=== PATIENT | female | born 1995 | race Caucasian/White ===

== ENCOUNTER → 2025-02-11 | Outpatient (CLI) | payer OTHER, SELFPAY ==
[2025-02-11 14:19] LABS: Hematocrit 37.1 % (37-47); Hemoglobin 12.7 g/dL (12.0-15.0); Immature Granulocytes Count 0.170 X10^3/uL (0.0-0.0); Mean Corp Hgb Conc 34.2 g/dL (32-36); Mean Corpuscular Volume 88.8 fL (81-99); Mean Platelet Vol. 9.4 fl (6.2-12.0); NRBC Flagged by Analyzer 0 % (0-5); Platelet Count 230 K/mm3 (150-450); RBC Distribution Width CV 12.8 % (11.6-14.6); RBC Distribution Width SD 41.9 fl (35.1-43.9); Red Blood Count 4.18 M/mm3 (4.2-5.4); White Blood Count 16.1 K/mm3 (4.4-11.0)
[2025-02-11 15:27] LABS: Prothrombin Time (Protime)PT. 12.4 SECONDS (11.7-14.9)
[2025-02-11 15:29] LABS: Fibrinogen 517 mg/dl (203-444); Partial Thromboplast Time 29.5 Seconds (24.1-36.2)
[2025-02-11 17:18] LABS: HIV Nonreactive (Nonreactive); Hepatitis B Surface Antigen Nonreactive (Nonreactive); Hepatitis C Antibody Nonreactive (Nonreactive); Syphilis Antibodies Nonreactive (Nonreactive)
== END | disposition home or self-care (01) ==
PROVIDERS: Referring Provider Obstetrics & Gynecology; Visit Provider Obstetrics & Gynecology
DX: O09.90 Supervision of high risk pregnancy, unspecified, unspecified trimester (principal); Z3A.00 Weeks of gestation of pregnancy not specified
CPT/HCPCS: 36415; 85025; 85384; 85610; 85730; 86703; 86762; 86780; 86803; 86850; 86900; 86901; 87086; 87088; 87340

== ENCOUNTER 2025-02-12 10:20 | Outpatient (CLI) | payer OTHER, SELFPAY ==
[2025-02-12] MEDS: Lactated Ringers 1,000 ML 999 ML IV (11:15)
[2025-02-12 11:23] VITALS: BP 114/66; PULSE 100
[2025-02-12 11:30] LABS: Hematocrit 34.2 % (37-47); Hemoglobin 11.8 g/dL (12.0-15.0); Immature Granulocytes Count 0.170 X10^3/uL (0.0-0.0); Mean Corp Hgb Conc 34.5 g/dL (32-36); Mean Corpuscular Volume 88.6 fL (81-99); Mean Platelet Vol. 9.5 fl (6.2-12.0); NRBC Flagged by Analyzer 0 % (0-5); Platelet Count 222 K/mm3 (150-450); RBC Distribution Width CV 12.8 % (11.6-14.6); RBC Distribution Width SD 41.5 fl (35.1-43.9); Red Blood Count 3.86 M/mm3 (4.2-5.4); White Blood Count 15.6 K/mm3 (4.4-11.0)
[2025-02-12 11:34] VITALS: BMI 22.7
[2025-02-12 11:59] LABS: Prothrombin Time (Protime)PT. 12.6 SECONDS (11.7-14.9)
[2025-02-12 12:00] LABS: Fibrinogen 460 mg/dl (203-444); Partial Thromboplast Time 30.3 Seconds (24.1-36.2)
--- NOTE | 2025-02-12 13:44 | OB.TRI.PN ---
Progress Notes Date of Service: 02/12/25 Progress Note: Patient seen for heavy vaginal bleeding. Placental abruption diagnosed at office yesterday. Patient has had bleeding throughout the beginning of the . Today had increased bleeding since 3 AM and cramping cannot sit up without having heavier bleeding so she has been staying laying down. Presented to the hospital today for evaluation. Upon evaluation heart tones present and 150s upon brief bedside ultrasound placenta seen to be more than was yesterday across the back wall and 1 cm clot seen at the top of the cervix. Cervix closed thick high with dark old blood present in the vaginal vault. Labs drawn and sent, hemoglobin dropped 1 g the rest of the labs are stable. Maternal- medicine evaluation recommended, they recommended ER evaluation as they will not see an abruption in the office. Discussed with patient transport via squad or personal car. At this time patient is stable enough for transport via personal car due to Pree viability and bleeding is decreased significantly. Recommend transfer up to [facility] for evaluation in the emergency room. Laboratory Studies: Laboratory Tests 02/12/25 Range/Units 11:15 WBC 15.6 H (4.4-11.0) K/mm3 RBC 3.86 L (4.2-5.4) M/mm3 Hgb 11.8 L (12.0-15.0) g/dL Hct 34.2 L (37-47) % MCV 88.6 (81-99) fL MCH 30.6 (27.0-32.0) pg MCHC 34.5 (32-36) g/dL RDW Std Deviation 41.5 (35.1-43.9) fl RDW Coeff of Nathaly 12.8 (11.6-14.6) % Plt Count 222 (150-450) K/mm3 MPV 9.5 (6.2-12.0) fl Immature Gran % (Auto) 1.100 H (0.0-0.9) % Neut % (Auto) 78.1 H (47-70) % Lymph % (Auto) 12.4 L (19-41) % [place] % (Auto) 5.9 (0-10) % Eos % (Auto) 2.1 (0-5) % Baso % (Auto) 0.4 (0-1) % Absolute Neuts (auto) 12.2 H (2.0-7.7) X10^3/uL Absolute Lymphs (auto) 1.94 (0.83-4.51) X10^3/uL Nucleated RBC % 0 (0-5) % PT 12.6 (11.7-14.9) SECONDS INR 0.9 APTT 30.3 (24.1-36.2) Seconds Fibrinogen 460 H (203-444) mg/dl Charges/Coding Multi Select Codes Urinary/Genital Urinary/Genital CPT Codes: No Charge
== END 2025-02-12 13:20 | disposition home or self-care (01) ==
LOC: WP 10:26 → WPOUT 10:39 → WP 10:40
PROVIDERS: Referring Provider Obstetrics & Gynecology; Visit Provider Obstetrics & Gynecology
DX: O46.90 Antepartum hemorrhage, unspecified, unspecified trimester (principal); Z3A.00 Weeks of gestation of pregnancy not specified
CPT/HCPCS: 96365; 59050; 76815; 85025; 85384; 85610; 85730; 99221; G0378

== ENCOUNTER 2025-02-25 08:49 | Inpatient (IN) | payer OTHER, SELFPAY ==
[2025-02-25] VITALS (137 sets, daily range): BP systolic 88–116; BP diastolic 45–73; PULSE 83–123; RESP 14–17; TEMP 36.4–37.5; O2SAT 96–100; BMI 23.5
--- OUTSIDE RECORDS SUMMARY | 2025-02-25 01:48 | XMS RPT_ITS | CCD ---
Author Organization [facility] Care Team Providers Care Glass Production Machine Operator Name Role Phone CARLA BARRIOS Unavailable Unavailable Cynthia GRISSOM, Dr. Singh Attending Provider Cynthia GRISSOM, Dr. Singh Referring Provider Cynthia GRISSOM, Dr. Singh Other Provider [phone] Unavailable Primary Care Provider UnavailTUNDE Ramirez Admitting Unavailable ROULETTE, TUNDE Attending Unavailable Marcanthony, Samantha Attending Unavailable Marcanthony, Samantha Referring Unavailable Marcanthony, Samantha Attending Unavailable Marcanthony, Samantha Referring Unavailable Marcanthony, Samantha Attending Unavailable Marcanthony, Samantha Attending Unavailable Marcanthony, Samantha Attending Unavailable Marcanthony, Samantha Consulting Unavailable Marcronaldoony, Samantha Referring Unavailable Allergies Allergy Classification Reported Allergen(s) Allergy Type Date of Onset Reaction(s) Facility (3 sources) Wheat gluten extract Drug Allergy 02-11-2025 Other [facility] (1 source) Gluten Drug allergy (disorder) 02-17-2025 [facility] Repository Medications Current Medications Medication Drug Class(es) Dates Sig (Normalized) Sig (Original) acetaminophen 325 mg oral tablet (4 sources) Start: 02-13-2025 End: 02-23-2025 take 2 tablets by mouth every four hours as needed for pain acetaminophen (Tylenol) 325 MG tablet Take 2 tablets (650 mg) by mouth every 4 hours as needed for mild pain (1-3) (Fever GREATER than 100.5 F (38 C)) for up to 10 days. 30 tablet 02/13/2025 02/23/2025 Active Start: 02-12-2025 End: 02-13-2025 take 1 tablet by mouth every four hours as needed for pain B Complex (3 sources) Start: 02-11-2025 B Complex Active PO February 11, 2025 12:00am Cod Liver Oil oil (2 sources) Start: 02-12-2025 take 1 mL by mouth once daily Cod Liver Oil oil Active 10 mL PO DAILY February 12, 2025 12:00am lactobacillus acidophilus 1.5 mg oral capsule (2 sources) Start: 02-12-2025 Lactobacillus Acidophilus (Probiotic Acidophilus) 250 million cell capsule Active 500 NMA PO DAILY February 12, 2025 12:00am Magnesium (2 sources) Start: 02-12-2025 take 1 tablet by mouth once daily Magnesium 200 mg tablet Active 200 mg PO DAILY February 12, 2025 12:00am ondansetron 4 mg disintegrating oral tablet (2 sources) Serotonin-3 Receptor Antagonist Start: 02-13-2025 End: 02-20-2025 take 1 tablet by mouth every eight hours as needed for nausea and vomiting ondansetron ODT (Zofran-ODT) 4 MG disintegrating tablet Take 1 tablet (4 mg) by mouth every 8 hours as needed for nausea or vomiting for up to 7 days. 20 tablet 02/13/2025 02/20/2025 Active 27-1 MG tablet (2 sources) Start: 02-14-2025 take 1 tablet by mouth once daily 27-1 MG tablet Take 1 tablet by mouth daily. 30 tablet 02/14/2025 Active Completed/Discontinued Medications Medication Drug Class(es) Dates Sig (Normalized) Sig (Original) calcium chloride 0.0014 meq/ml / potassium chloride 0.004 meq/ml / sodium chloride 0.103 meq/ml / sodium lactate 0.028 meq/ml injectable solution (2 sources) Start: 02-12-2025 End: 02-13-2025 1,000 mL, IntraVENous, at 500 mL/hr, Administer over 2 Hours, Once, On Mon02/12/25 at 2145, For 1 dose ondansetron ODT (Zofran-ODT) disintegrating tablet 4 mg (2 sources) Start: 02-12-2025 End: 02-13-2025 take 1 tablet by mouth every eight hours as needed for nausea and vomiting ondansetron ODT (Zofran-ODT) disintegrating tablet 4 mg vitamin tablet (2 sources) Start: 02-12-2025 End: 02-13-2025 5 ml sodium chloride 9 mg/ml injection (6 sources) Start: 02-12-2025 End: 02-13-2025 10 mL, IntraVENous, Every 12 hours scheduled (2 times per day), First dose on Mon02/12/25 at 2100 Start: 02-12-2025 End: 02-13-2025 Start: 02-12-2025 End: 02-13-2025 Problems Problem Classification Problem Date Documented Da te Episodic/Chronic Hemorrhage during ; abruptio placenta; placenta previa (11 sources) Placental abruption; Translations: [Premature separation of placenta, unspecified, second trimester] Onset: 02-12-2025 02-11-2025 Episodic Comment on above: mfm consult and brittnee douglas scan Other complications of ; puerperium affecting management of mother (6 sources) Delivery finding; Translations: [Complication of labor and delivery, unspecified] Onset: 02-12-2025 02-13-2025 Episodic Other complications of ; puerperium affecting management of mother (2 sources) Complication of labor and delivery, unspecified; Translations: [Complication of labor and delivery, unspecified] Onset: 02-12-2025 Episodic Other complications of (7 sources) High risk ; Translations: [Supervision of high risk , unspecified, unspecified trimester] 02-11-2025 Episodic Comment on above: RAD[facility] [place] RAD[facility] 07/22/25 PC [place], zofia, ej, jaida [place] Other complications of (2 sources) Supervision of high risk , unspecified, unspecified trimester; Translations: [Supervision of high risk , unspecified, unspecified trimester] Onset: 02-11-2025 Episodic Other and delivery including normal (7 sources) ; Translations: [Encounter for supervision of normal , unspecified, unspecified trimester] 02-11-2025 Episodic Comment on above: ZE fam montilla. ZE fam montilla due to persistent vb. genetic, carrier, afp declined. Results Test Name Value Interpretation Reference Range Facility Stock Associate Office Visit Reporton 02-17-2025 Stock Associate Office Visit Report [facility] [address], [address] [place] [address] OFFICE VISIT Date of Service: 02/17/25 MR#: [id number] Acct: [id number] Name: LINA GLIBERT Rep #: [id number] : 1995 Provider: Dr. Samantha lenz MD Age/Sex: 29/F Location: [facility] Status: Signed Intake Vital Signs 02/12/25 11:34 02/17/25 11:48 02/17/25 11:54 Height 5 ft 6 in 5 ft 6 in 5 ft 6 in Weight: 145 lb BMI 23.3 BP 114/70 Intake Visit Reasons: 17wk6d ob *per SM Batch Still Operator Required: No Is patient in pain?: Yes (some pain with cramping) Allergies gluten Allergy (Unknown, Verified 02/17/25 11:47) Other Medications ???Medication ???Instructions ???Recorded ???Confirmed ???Type B Complex PO 02/11/25 02/17/25 History Lactobacillus acidophilus 250 500 mmu cells PO DAILY 02/12/25 History million cell capsule (Probiotic Acidophilus) cod liver oil 10 ml PO DAILY 02/12/25 02/17/25 H istory magnesium 200 mg tablet 200 mg PO DAILY 02/12/25 02/17/25 History Last Menstrual Period: 10/15/24 Zika: Zika virus screening: Negative : No PFSH PFSH Surgical History History of dental surgery Social History household members: spouse and children number of children: 4 current occupation: [employer] Smoking Status: Never smoker alcohol intake: never substance use type: does not use do you feel safe at home: Yes additional social history: Jesus Alberto Escobar) History 5 Elective abortions Hx Para 4 Spontaneous abortions Hx # Term Pregnancies Ectopic pregnancies Hx # Pregnancies Multiple births # of living children 4 Past Pregnancies Del. Date Name GA/Weeks Outcome Route Bth Weight Infant Gen Labor Lgth Anesthesia Del Locatn Provider FOB Unknown 2017 [place] live - full term Unknown 2018 Zofia live - full term Unknown 2020 Ej live - full term Unknown 2022 Jaida live - full term HPI 17wk6d ob *per SM Details: LINA GILBERT is a 29 year old who presents for routine OB visit. OB Visit RADHA Calculator Estimated Delivery Date Method Current WG Current Estimate 07/22/25 LMP (Certain) 17w 6d Expected Delivery Route/Plan Labor Preferences- CB/BF classes: [] labor support person: [] labor intervention preferences: [] pain management options preferred: [] cut cord/dad catch: [] : [] PP control planned: [] discussed possible routes of delivery and associated risks: [] special requests: [] Specific Issue/Plans Covid status: [] Flu vaccine: [] Tdap vaccine: [] Rhogam: [] LARC form signed: [] Problem list reviewed and updated with the most current plan of care details and appropriate orders placed. Relevant counseling for the gestational age provided. Continue routine care and follow up unless otherwise noted in visit notes/problem list details Initial Weight: Not Recorded Date -???-???-???-???-? ??-???-???-???-??? -???-???-???- EGA Weight BP Urine Prot -???-???-???-???-? ??-???-???-???-??? -???-???-???- Glucose FHR FuHt Pres Dilation -???-???-???-???-? ??-???-???-???-??? -???-???-???- Effaced St Visit Note 02/11/25 -???-???-???-???-? ??-???-???-???-??? -???-???-???- 17w 0d 141 lb 1 oz 102/66 -???-???-???-???-? ??-???-???-???-??? -???-???-???- 150 -???-???-???-???-? ??-???-???-???-??? -???-???-???- SM- ZE from Fam [place] SM- ZE from Fam [place]. SM- ZE from Fam [place] due to va ginla bleeding throughout the beginning of the . 1x3 cm marginal placental abruption seen on ultrasound no previa amniotic fluid growwly normal amount but granular appearance. 02/17/25 -???-???-???-???-? ??-???-???-???-??? -???-???-???- 17w 6d 145 lb 114/70 Negative -???-???-???-???-? ??-???-???-???-??? -???-???-???- Negative 150 -???-???-???-???-? ??-???-???-???-??? -???-???-???- SM- continue d bleeding, following with MFM closely, ocntinue reduced activity. 2 areas of abruption, stable at this time clinically ACOG First Trimester First Trimester: Discussed ROS Const Denies fever(s) GI Reports as per HPI and Denies abdominal pain Reports as per HPI, Denies abnormal vaginal bleeding, Denies dysuria and Denies vaginal discharge Exam Const General: healthy appearing, comfortable and no acute distress GI Inspection: normal to inspection Palpation: soft and nontender Results POC Urinalysis 2 Dip (Clinic) Office Urine Glucose Negative Last Edit by Keisha Muñoz on 02/17/25 12:00 Office Urine Protein Negative Last Edit by Keisha Muñoz on (more content not included)... Normal [facility] Urine Cultureon 02-14-2025 URC Mixed Gram Positive Organisms Coy Count 25,000-50,000 MIXC Mixed contaminants. Submit a new specimen if indicated. Normal [facility] Comment on above: Performed By: #### M 100.2200 #### [facility] [address] [place], [address] [id number] 02-13-2025 [id number] Date: 02/13/2025 Name: Lina Gilbert : 1995 [facility] Information [place] Patient Information Primary Caregiver: Self Accompanied by/Relationship: S/O;Family Marital Status: Support System: SO/Family Shinto/Cultural Factors: Activities of Daily Living Communication: See demographics Living Arrangements Current Residence: Private residence Lives With: S/O; Family Support System: S/O; Family Income Information Income Source: Not Employed Financial Resource Strain How hard is it for you to pay for the very basics like food, housing, medical care and heating? N/A Housing Stability In the last 12 months, was there a time when you did not have a steady place to sleep or slept in a longterm (including now)? No Transportation Needs Has the lack of Transportation kept you from medical appointments? No In the past 12 months, has the lack of transportation kept you from meetings, work, or from getting things needed for daily living? No Food Insecurity Within the past 12 months, have you worried that your food would run out before you got the money to buy more? No Stress Do you feel stress - tense, restless, nervous, or anxious, or unable to sleep at night because you mind is troubled all the time? Mood stable Referral To Financial Resources: N/A Community Resources: PNU folder given upon admission to PNU Unit Social Work: N/A CLP: N/A Medical Information 29 year old admitted for vaginal bleeding at 17/1 weeks. 5 Para 4. Consults MFM. Concern for abruption Discharge Plan Home or Community Resources: PNU Admission folder given upon admission to unit Equipment: N/A Education Given: PNU admit folder and see Education Tab Additional Information: N/A Mental Health Services: N/A Developmental Delay: N/A Children's Services: N/A Normal [facility] Laboratory - Microbiology an d Antimicrobial susceptibilityOrdered By: Ally Medina on 02-13-2025 Reagin Ab RPR Ql (S) Non-Reactive Nonreactive S [facility] Panel Informationon 02-13 OBSTETRICS REPORT (Signed Final 02/13/2025 02:00 pm) PATIENT INFO: ID #: [id number] : [birth year] (29 yrs)(F) Name: LINA GILBERT Visit Date: 02/13/2025 11:33 am PERFORMED BY: Attending: Beverly Dominguez MD, ARPITA, FACOG Performed By: Rachel Gorman RDMS Referred By: TALI CLINE [facility] Phy.: SAMANTHA SANDERS Address: [address] [address] Location: [facility] IP Visit Type: Inpatient - Hospital SERVICE(S) PROVIDED: US >= 14 weeks [address] US Transvaginal 60056 INDICATIONS: Complication of labor and delivery, O75.9 unspecified Antepartum hemorrhage, unspecified, O46.92 second trimester EVALUATION: Num Of Fetuses: 1 Heart Rate(bpm): 149 Cardiac Activity: Regular rhythm Lie: Longitudinal Presentation: Breech Placenta: Posterior P. Cord Insertion: Normal Amniotic Fluid ROSALINE FV: Within normal limits Largest Pocket(cm) 3.62 Comment: 2 areas of Abruption 1) Extends from Inferior Placental edge, covering Internal os 5.1 x 2.1 x .8cm. 2) At Superior Placental edge 3.9 x 3.5 x 1.1cm BIOMETRY: BPD: 37.4 mm G.Age: 17w 3d 56 % OFD: 51 mm HC: 142.9 mm G.Age: 17w 4d 55 % AC: 127.9 mm G.Age: 18w 3d 82 % FL: 24.9 mm G.Age: 17w 4d 55 % CER: 16.9 mm G.Age: 17w 1d 37 % NFT: 2.84 mm LV: 5.71 mm CM: 5 mm CI: 73.3 % 70 - 86 FL/HC: 17.4 % 14.6 - 17.6 HC/AC: 1.12 1.07 - 1.29 FL/BPD: 66.6 % FL/AC: 19.5 % 20 - 24 Est. FW: 215 gm 0 lb 8 oz GESTATIONAL AGE: Clinical RADHA: 17w 2d RADHA: 07/22/25 U/S Today: 17w 5d RADHA: 07/19/25 Best: 17w 2d Det. By: Clinical RADHA RADHA: 07/22/25 TARGETED ANATOMY: Central Nervous System Calvarium/Cranial V.: Normal appearance Intracranial Brittnee: Normal appearance Cavum: Normal appearance Lateral Ventricles: Normal appearance Choroid Plexus: Normal appearance Cereb./Vermis: Normal appearance Cisterna Magna: Normal appearance Corpus Callosum: Normal appearance Midline Falx: Normal appearance Spine Cervical: Normal appearance Thoracic: Normal appearance Lumbar: Normal appearance Sacral: Suboptimal views Head/Neck Face: Normal appearance Lips: Normal appearance Neck: Normal appearance Nuchal Fold: Normal appearance Nasal Bone: Present Palate: Normal appearance Profile: Normal appearance Orbits/Eyes: Normal appearance Mandible: Normal appearance Maxilla: Normal appearance Thorax Thoracic Contour: Normal appearance Lungs: Normal appearance 4 Chamber View: Normal appearance Cardiac Activity: Observed Cardiac Rhythm: Normal Cardiac Situs: Normal appearance Rt Outflow Tract: Normal appearance Lt Outflow Tract: Normal appearance Aortic Arch: Normal appearance Ductal Arch: Normal appearance SVC: Normal appearance Interventr. Septum: Normal appearance Cardiac Bethune: Normal appearance Diaphragm: Normal appearance 3 Vessel View: Normal appearance 3 V Trachea View: Suboptimal views IVC: Normal Appearance Crossing: Suboptimal views Abdomen Ventral Wall: Normal appearance Cord Insertion: Normal appearance Situs: Normal appearance Stomach: (more content not included)... [facility] Tunde Dominguez MD - 02/13/2025 OBSTETRICS REPORT (Signed Final 02/13/2025 02:00 pm) PATIENT INFO: ID #: [id number] : [birth year] (29 yrs)(F) Name: LINA GILBERT Visit Date: 02/13/2025 11:33 am PERFORMED BY: Attending: Beverly Dominguez MD, ARPITA, FACOG Performed By: Rachel Gorman RDMS Referred By: TALI CLINE [facility] Phy.: SAMANTHA SANDERS Address: [address] [address] Location: [facility] Visit Type: Inpatient - Hospital SERVICE(S) PROVIDED: US >= 14 weeks [address] US Transvaginal 24114 INDICATIONS: Complication of labor and delivery, O75.9 unspecified Antepartum hemorrhage, unspecified, O46.92 second trimester EVALUATION: Num Of Fetuses: 1 Heart Rate(bpm): 149 Cardiac Activity: Regular rhythm Lie: Longitudinal Presentation: Breech Placenta: Posterior P. Cord Insertion: Normal Amniotic Fluid ROSALINE FV: Within normal limits Largest Pocket(cm) 3.62 Comment: 2 areas of Abruption 1) Extends from Inferior Placental edge, covering Internal os 5.1 x 2.1 x .8cm. 2) At Superior Placental edge 3.9 x 3.5 x 1.1cm BIOMETRY: BPD: 37.4 mm G.Age: 17w 3d 56 % OFD: 51 mm HC: 142.9 mm G.Age: 17w 4d 55 % AC: 127.9 mm G.Age: 18w 3d 82 % FL: 24.9 mm G.Age: 17w 4d 55 % CER: 16.9 mm G.Age: 17w 1d 37 % NFT: 2.84 mm LV: 5.71 mm CM: 5 mm CI: 73.3 % 70 - 86 FL/HC: 17.4 % 14.6 - 17.6 HC/AC: 1.12 1.07 - 1.29 FL/BPD: 66.6 % FL/AC: 19.5 % 20 - 24 Est. FW: 215 gm 0 lb 8 oz GESTATIONAL AGE: Clinical RADHA: 17w 2d RADHA: 07/22/25 U/S Today: 17w 5d RADHA: 07/19/25 Best: 17w 2d Det. By: Clinical RADHA RADHA: 07/22/25 TARGETED ANATOMY: Central Nervous System Calvarium/Cranial V.: Normal appearance Intracranial Brittnee: Normal appearance Cavum: Normal appearance Lateral Ventricles: Normal appearance Choroid Plexus: Normal appearance Cereb./Vermis: Normal appearance Cisterna Magna: Normal appearance Corpus Callosum: Normal appearance Midline Falx: Normal appearance Spine Cervical: Normal appearance Thoracic: Normal appearance Lumbar: Normal appearance Sacral: Suboptimal views Head/Neck Face: Normal appearance Lips: Normal appearance Neck: Normal appearance Nuchal Fold: Normal appearance Nasal Bone: Present Palate: Normal appearance Profile: Normal appearance Orbits/Eyes: Normal appearance Mandible: Normal appearance Maxilla: Normal appearance Thorax Thoracic Contour: Normal appearance Lungs: Normal appearance 4 Chamber View: Normal appearance Cardiac Activity: Observed Cardiac Rhythm: Normal Cardiac Situs: Normal appearance Rt Outflow Tract: Normal appearance Lt Outflow Tract: Normal appearance Aortic Arch: Normal appearance Ductal Arch: Normal appearance SVC: Normal appearance Interventr. Septum: Normal appearance Cardiac Bethune: Normal appearance Diaphragm: Normal appearance 3 Vessel View: Normal appearance 3 V Trachea View: Suboptimal views IVC: Normal Appearance Crossing: Suboptimal views Abdomen Ventral Wall: Normal appearance Cord Insertion: Normal appearance Situs: Normal appearance Stomach: Normal appearance Liver: Normal appearance Lt Kidney: Normal appearance Rt Kidney: Normal appearance Bladder: Normal appearance Bowel: Normal appearance Extremities Lt Humerus: Normal appearance Rt Humerus: Normal appearance Lt Forearm: Normal appearance Rt Forearm: Normal appearance Lt Hand: Normal appearance Rt Hand: Normal appearance Lt Femur: Normal appearance Rt Femur: Normal appearance Lt Lower Leg: Normal appearance Rt Lower Leg: Normal appearance Lt Foot: Suboptimal views Rt Foot: Normal appearance Other Umbilical Cord: Normal 3-vessel Genitalia: Male Comment: Rt Ankle - SUB-OPTIMAL VIEWS Renal arteries - Normal appearance. Trans S Gzzji-Kcy-iw views CERVIX UTERUS ADNEXA: Cervix Length: 4.1 cm. Cervix appears closed and shows no change with fundal pressure. Right Ovary Normal in size and appearance Left Ovary Normal in size and appearance -------- (more content not included)... [facility] [employer] Radiology Study observation (narrative) [facility] alfredo Interpretation and review of laboratory results Normal [facility] Rubella IgG 8.86 0.900 - PINF [facility] Healt Interpretation Table: <0.900 Antibody NOT Detected >=0.900 AND <1.000 Antibody Equivocal >=1.000 Antibody Detected [facility] Extra Tube Hold for add-ons. [facility] ealt Comment on above: Auto resulted. [employer] No Panel InformationOrdered By: Tunde Dominguez on 02-13-2025 [employer] Work Phone: Progress Noteon 02-13-2025 Progress Note PHYSICAL THERAPY [facility] Name/MRN: Lina Gilbert ([id number]) Date: 02/13/2025 PT orders received per Naeem activity/mobility score. Patient currently with Naeem activity/mobility score greater than 2. Per therapy services guidelines, will discharge PT orders. Please place regular PT eval/treat orders if deemed appropriate. 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 Case was discussed at the time of admission. Please see my separate attestation from the admission history and physical examination. John Dominguez MD, MBA FACOG Maternal- Medicine -------- Maternal Medicine Service Resident Progress Note 02/13/2025 6:33 AM 02/12/2025 Hospital Day: 2 Lina Gilbert, 29 y.o. 17w2d Patient has been seen and examined. Pt complains of some bleeding overnight. She denies any leakage of fluid or pain. Patient states that primary OB told patient she has a partial abruption seen in prior imaging. Vitals: 02/12/25 1547 02/12/25 2221 02/13/25 0037 02/13/25 0404 BP: 110/63 98/60 (!) 99/56 (!) 104/52 Pulse: 97 90 83 85 Resp: 18 16 16 18 Temp: 36.8 ?C (98.2 ?F) 36.6 ?C (97.8 ?F) 36.6 ?C (97.9 ?F) 36.8 ?C (98.2 ?F) TempSrc: Oral Oral Oral Oral SpO2: 98% 100% 100% 100% Physical Exam: Gen: NAD HEENT: Normocephalic, Atraumatic, EOMI, MMM Resp: no increased work of breathing Card: RR Abd: soft, gravid, NTND, no rebound, no guarding. Ext: No LE edema, no calf tenderness or swelling Medications: Current Medications[1] Assessment/Plan: Lina Gilbert is a 29 y.o. female 17w2d Vaginal Bleeding Concern of Abruption - admitted for vaginal bleeding with concern for abruption - reports some bleeding overnight this morning on rounds - abdominal exam benign - afebrile, hypotensive, HR wnl - received 1L IVF overnight per patient request of feeling dehydrated - reports posterior placenta with known partial abruptions per Primary OB - Fibrinogen and coags wnl on admission - TVUS today - continue to monitor closely Limited Care - dated by LMP - follows with Travel Freight And Passenger Agent but establish care with Cynthia due to bleeding - labs collected on admission, awaiting results IUP @ 17w2d - Dating by LMP - variable - Monitoring:FHT daily - Diet:General - BMZ Deferred Further plan pending d/w attending. Yvonne Mays DO 02/13/2025, 6:33 AM [1] Current Facility-Administe red Medications Medication Dose Route Frequency Provider Last Rate Last Admin acetaminophen (Tylenol) tablet 650 mg 650 mg Oral q4h PRN Nirali Schlieper, DO influenza vaccine tiss-cult subunt (Flucelvax) STANDARD-DOSE injection 0.5 mL 0.5 mL IntraMUSCular Once Nirali Schlieper, DO ondansetron ODT (Zofran-ODT) disintegrating tablet 4 mg 4 mg Oral q8h PRN Nirali Schlieper, DO Or ondansetron (Zofran) injection 4 mg 4 mg IntraVENous q6h PRN Nirali Schlieper, DO vitamin tablet 1 tablet Oral Daily Nirali Schlieper, DO sodium chloride 0.9 % infusion 5-250 mL/hr IntraVENous PRN Nirali Schlieper, DO sodium chloride 0.9% (NS) flush 10 mL 10 mL IntraVENous 2 times per day Nirali Schlieper, DO 10 mL at 02/12/252114 sodium chloride 0.9% (NS) flush 10 mL 10 mL IntraVENous PRN Nirali Schlieper, DO [facility] Reagin Ab RPR Ql (S)Ordered By: Ally Medina on 02-13-2025 Interpretation and review of laboratory results [facility] US OB 14+ WEEKS SINGLE FETUS MATERNAL EVAL TRANSABDOMINALon 02-13-2025 US OB 14+ WEEKS SINGLE FETUS MATERNAL EVAL TRANSABDOMINAL OBSTETRICS REPORT (Signed Final 02/13/2025 02:00 pm) PATIENT INFO: ID #: [id number] : [birth year] (29 yrs)(F) Name: LINA GILBERT Visit Date: 02/13/2025 11:33 am PERFORMED BY: Attending: Beverly Dominguez MD, ARPITA, FACOG Performed By: Rachel Gorman RDMS Ref[facility]: [facility] Address: [address] [address] Location: [facility] Visit Type: Inpatient - Hospital SERVICE(S) PROVIDED: US >= 14 weeks [address] US Transvaginal 75459 INDICATIONS: Complication of labor and delivery, O75.9 unspecified Antepartum hemorrhage, unspecified, O46.92 second trimester EVALUATION: Num Of Fetuses: 1 Heart Rate(bpm): 149 Cardiac Activity: Regular rhythm Lie: Longitudinal Presentation: Breech Placenta: Posterior P. Cord Insertion: Normal Amniotic Fluid ROSALINE FV: Within normal limits Largest Pocket(cm) 3.62 Comment: 2 areas of Abruption 1) Extends from Inferior Placental edge, covering Internal os 5.1 x 2.1 x .8cm. 2) At Superior Placental edge 3.9 x 3.5 x 1.1cm BIOMETRY: BPD: 37.4 mm G.Age: 17w 3d 56 % OFD: 51 mm HC: 142.9 mm G.Age: 17w 4d 55 % AC: 127.9 mm G.Age: 18w 3d 82 % FL: 24.9 mm G.Age: 17w 4d 55 % CER: 16.9 mm G.Age: 17w 1d 37 % NFT: 2.84 mm LV: 5.71 mm CM: 5 mm CI: 73.3 % 70 - 86 FL/HC: 17.4 % 14.6 - 17.6 HC/AC: 1.12 1.07 - 1.29 FL/BPD: 66.6 % FL/AC: 19.5 % 20 - 24 Est. FW: 215 gm 0 lb 8 oz GESTATIONAL AGE: Clinical RADHA: 17w 2d RADHA: 07/22/25 U/S Today: 17w 5d RADHA: 07/19/25 Best: 17w 2d Det. By: Clinical RADHA RADHA: 07/22/25 TARGETED ANATOMY: Central Nervous System Calvarium/Cranial V.: Normal appearance Intracranial Brittnee: Normal appearance Cavum: Normal appearance Lateral Ventricles: Normal appearance Choroid Plexus: Normal appearance Cereb./Vermis: Normal appearance Cisterna Magna: Normal appearance Corpus Callosum: Normal appearance Midline Falx: Normal appearance Spine Cervical: Normal appearance Thoracic: Normal appearance Lumbar: Normal appearance Sacral: Suboptimal views Head/Neck Face: Normal appearance Lips: Normal appearance Neck: Normal appearance Nuchal Fold: Normal appearance Nasal Bone: Present Palate: Normal appearance Profile: Normal appearance Orbits/Eyes: Normal appearance Mandible: Normal appearance Maxilla: Normal appearance Thorax Thoracic Contour: Normal appearance Lungs: Normal appearance 4 Chamber View: Normal appearance Cardiac Activity: Observed Cardiac Rhythm: Normal Cardiac Situs: Normal appearance Rt Outflow Tract: Normal appearance Lt Outflow Tract: Normal appearance Aortic Arch: Normal appearance Ductal Arch: Normal appearance SVC: Normal appearance Interventr. Septum: Normal appearance Cardiac Bethune: Normal appearance Diaphragm: Normal appearance 3 Vessel View: Normal appearance 3 V Trachea View: Suboptimal views IVC: Normal Appearance Crossing: Suboptimal views Abdomen Ventral Wall: Normal appearance Cord Insertion: Normal appearance Situs: Normal appearance Stomach: Normal appearance Liver: Normal appearance Lt Kidney: Normal appearance Rt Kidney: Normal appearance Bladder: Normal appearance Bowel: Normal appearance Extremities Lt Humerus: Normal appearance Rt Humerus: Normal appearance Lt Forearm: Normal appearance Rt Forearm: Normal appearance Lt Hand: Normal appearance Rt Hand: Normal appearance Lt Femur: Normal appearance Rt Femur: Normal appearance Lt Lower Leg: Normal appearance Rt Lower Leg: Normal appearance Lt Foot: Suboptimal views Rt Foot: Normal appearance Other Umbilical Cord: Normal 3-vessel Genitalia: Male Comment: Rt Ankle - SUB-OPTIMAL VIEWS Renal arteries - Normal appearance. Trans S Hvitw-Gdo-io views CERVIX UTERUS ADNEXA: Cervix Length: 4.1 cm. Cervix appears closed and shows no change with fundal pressure. Right Ovary Normal in size and appearance Left Ovary Normal in size and appearance Beverly Dominguez MD, DYLAN (more content not included)... [facility] OB TRANSVAGINALon OB TRANSVAGINAL OBSTETRICS REPORT (Signed Final 02/13/2025 02:00 pm) PATIENT INFO: ID #: [id number] : [birth year] (29 yrs)(F) Name: LINA GILBERT Visit Date: 02/13/2025 11:33 am PERFORMED BY: Attending: Beverly Dominguez MD, ARPITA, FACOG Performed By: Rachel Gorman RDMS Referred By: TALI CLINE [facility] Phy.: SAMANTHA SANDERS Address: [address] [address] Location: [facility] Visit Type: Inpatient - Hospital SERVICE(S) PROVIDED: US >= 14 weeks [address] US Transvaginal 89477 INDICATIONS: Complication of labor and delivery, O75.9 unspecified Antepartum hemorrhage, unspecified, O46.92 second trimester EVALUATION: Num Of Fetuses: 1 Heart Rate(bpm): 149 Cardiac Activity: Regular rhythm Lie: Longitudinal Presentation: Breech Placenta: Posterior P. Cord Insertion: Normal Amniotic Fluid ROASLINE FV: Within normal limits Largest Pocket(cm) 3.62 Comment: 2 areas of Abruption 1) Extends from Inferior Placental edge, covering Internal os 5.1 x 2.1 x .8cm. 2) At Superior Placental edge 3.9 x 3.5 x 1.1cm BIOMETRY: BPD: 37.4 mm G.Age: 17w 3d 56 % OFD: 51 mm HC: 142.9 mm G.Age: 17w 4d 55 % AC: 127.9 mm G.Age: 18w 3d 82 % FL: 24.9 mm G.Age: 17w 4d 55 % CER: 16.9 mm G.Age: 17w 1d 37 % NFT: 2.84 mm LV: 5.71 mm CM: 5 mm CI: 73.3 % 70 - 86 FL/HC: 17.4 % 14.6 - 17.6 HC/AC: 1.12 1.07 - 1.29 FL/BPD: 66.6 % FL/AC: 19.5 % 20 - 24 Est. FW: 215 gm 0 lb 8 oz GESTATIONAL AGE: Clinical RADHA: 17w 2d RADHA: 07/22/25 U/S Today: 17w 5d RADHA: 07/19/25 Best: 17w 2d Det. By: Clinical RADHA RADHA: 07/22/25 TARGETED ANATOMY: Central Nervous System Calvarium/Cranial V.: Normal appearance Intracranial Brittnee: Normal appearance Cavum: Normal appearance Lateral Ventricles: Normal appearance Choroid Plexus: Normal appearance Cereb./Vermis: Normal appearance Cisterna Magna: Normal appearance Corpus Callosum: Normal appearance Midline Falx: Normal appearance Spine Cervical: Normal appearance Thoracic: Normal appearance Lumbar: Normal appearance Sacral: Suboptimal views Head/Neck Face: Normal appearance Lips: Normal appearance Neck: Normal appearance Nuchal Fold: Normal appearance Nasal Bone: Present Palate: Normal appearance Profile: Normal appearance Orbits/Eyes: Normal appearance Mandible: Normal appearance Maxilla: Normal appearance Thorax Thoracic Contour: Normal appearance Lungs: Normal appearance 4 Chamber View: Normal appearance Cardiac Activity: Observed Cardiac Rhythm: Normal Cardiac Situs: Normal appearance Rt Outflow Tract: Normal appearance Lt Outflow Tract: Normal appearance Aortic Arch: Normal appearance Ductal Arch: Normal appearance SVC: Normal appearance Interventr. Septum: Normal appearance Cardiac Bethune: Normal appearance Diaphragm: Normal appearance 3 Vessel View: Normal appearance 3 V Trachea View: Suboptimal views IVC: Normal Appearance Crossing: Suboptimal views Abdomen Ventral Wall: Normal appearance Cord Insertion: Normal appearance Situs: Normal appearance Stomach: Normal appearance Liver: Normal appearance Lt Kidney: Normal appearance Rt Kidney: Normal appearance Bladder: Normal appearance Bowel: Normal appearance Extremities Lt Humerus: Normal appearance Rt Humerus: Normal appearance Lt Forearm: Normal appearance Rt Forearm: Normal appearance Lt Hand: Normal appearance Rt Hand: Normal appearance Lt Femur: Normal appearance Rt Femur: Normal appearance Lt Lower Leg: Normal appearance Rt Lower Leg: Normal appearance Lt Foot: Suboptimal views Rt Foot: Normal appearance Other Umbilical Cord: Normal 3-vessel Genitalia: Male Comment: Rt Ankle - SUB-OPTIMAL VIEWS Renal arteries - Normal appearance. Trans S Hauiu-Gqh-wg views CERVIX UTERUS ADNEXA: Cervix Length: 4.1 cm. Cervix appears closed and shows no change with fundal pressure. Right Ovary Normal in size and appearance Left Ovary Normal in size and appearance G Darin Dominguez MD, MB (more content not included)... Normal [facility] ABO and Rh group Confirm Nom (Bld)on 02-12-2025 ABO group Nom (Bld) O [facility] D Ag Ql (RBC) Positive [facility] Absolute lymphocyte countOrd ered By: Samantha Sanders on 02-12-2025 Lymphocytes Auto (Unsp spec) [#/Vol] 1.94 10*3/uL 0.83-4.51 [facility] Absolute neutrophil countOrd ered By: Samantha Bearjp on 02-12-2025 Neutrophils (Bld) [#/Vol] 12.2 10*3/uL High 2.0-7.7 [facility] Activated partial thrombopla stin time (aPTT) in platelet poor plasma by coagulation aOrdered By: Samantha Sanders on 02-12-2025 aPTT Coag (PPP) [Time] 30.3 s 24.1-36.2 [facility] Automated lymphocyte count a s percentage of total leukocytesOrdered By: Samantha Sanders on 02-12-2025 Lymphocytes/100 WBC Auto (Unsp spec) 12.4 % Low 19-41 [facility] BLOOD TYPE AND SCREEN GELon 02-12-2025 ABO GROUPING O Normal [facility] Comment on above: Order Comment: HOLD. Specimen is valid for 3 days - nurse to verify valid specimen Performed By: #### L [id number], [id number], [id number] #### Logistics Analyst: HARIS SIMENTAL ([id number]) [facility] ([facility]) [address] [place] [address] RH TYPE IN BLOOD Positive Normal [facility] Comment on above: Order Comment: HOLD. Specimen is valid for 3 days - nurse to verify valid specimen Performed By: #### L [id number], [id number], [id number] #### Logistics Analyst: HARIS SIMENTAL ([id number]) [facility] [address] [place] [address] Basophil percentageOrdered B y: Samantha Sanders on 02-12-2025 Basophils/100 WBC (Bld) 0.4 % 0-1 [facility] Blood type and Crossmatch pa yoko (Bld)on 02-12-2025 ABO group Nom (Bld) O [facility] Blood group antibody screen GEL Ql Negative [facility] D [facility]) [facility] CBC (HEMOGRAM)on 02-12-2025 Erythrocyte distribution width (RBC) [Ratio] 12.9 % Normal 11.5-15.0 [facility] Comment on above: Performed By: #### Clarence [id number], [id number], [id number] #### Logistics Analyst: HARIS SIMENTAL ([id number]) [facility]) [address] [place] [address] Hematocrit (Bld) [Volume fraction] 37.6 % Normal 35.0-47.0 [facility] Comment on above: Performed By: #### Clarence [id number], [id number], [id number] #### Logistics Analyst: HARIS SIMENTAL ([id number]) [facility]) [address] [place] [address] Hemoglobin (Bld) [Mass/Vol] 12.7 g/dL Normal 11.7-16.0 [facility] Comment on above: Performed By: #### Clarence AB868, [id number], [id number] #### Logistics Analyst: HARIS SIMENTAL ([id number]) [facility]) [address] [place] [address] MCH (RBC) [Entitic mass] 30.7 pg Normal 26.0-34.0 [facility] Comment on above: Performed By: #### Clarence AB868, [id number], [id number] #### Logistics Analyst: HARIS SIMENTAL ([id number]) [facility]) [address] [place] [address] MCHC 33.8 % Normal 30.5-36.0 [facility] Comment on above: Performed By: #### Clarence AB868, [id number], [id number] #### Logistics Analyst: HARIS SIMENTAL ([id number]) [facility]) [address] [place] [address] MCV (RBC) [Entitic vol] 90.8 fL Normal 77.0-99.0 [facility] Comment on above: Performed By: #### L AB868, [id number], [id number] #### Logistics Analyst: HARIS SIMENTAL ([id number]) [facility]) [address] [place] [address] Platelet mean volume (Bld) [Entitic vol] 9.2 fL Normal 9.0-12.7 [facility] Comment on above: Performed By: #### L AB868, [id number], [id number] #### Logistics Analyst: HARIS SIMENTAL ([id number]) [facility] [address] [place] [address] Platelets (Bld) [#/Vol] 238 10*3/uL Normal 140-440 [facility] Comment on above: Performed By: #### L AB868, [id number], [id number] #### Logistics Analyst: HARIS SIMENTAL ([id number]) [facility] ([facility]) [address] [place] [address] RBC (Bld) [#/Vol] 4.14 10*6/uL Normal 3.80-5.20 [facility] Comment on above: Performed By: #### Clarence AB868, [id number], [id number] #### Logistics Analyst: HARIS SIMENTAL ([id number]) [facility] ([facility]) [address] [place] [address] WBC (Bld) [#/Vol] 15.9 10*3/uL High 3.6-10.7 [facility] Comment on above: Performed By: #### L AB868, [id number], [id number] #### Logistics Analyst: HARIS SIMENTAL ([id number]) [facility] ([facility]) [address] [place] [address] CBC W/Diff, Automatedon 09-1 0-2024 Absolute Lymph 1.94 X10 3/uL Normal 0.83-4.51 [facility] Comment on above: Performed By: #### L 300.4700, L300.3900, L300.4310, L100.0100 #### [facility] [address] [place], [place], [id number] Absolute Neut 12.2 X10 3/uL High 2.0-7.7 [facility] Comment on above: Performed By: #### L 300.4700, L300.3900, L300.4310, L100.0100 #### [facility] [address] [place], [address] Basophils/100 WBC (Bld) 0.4 % Normal 0-1 [facility] Comment on above: Performed By: #### L 300.4700, L300.3900, L300.4310, L100.0100 #### [facility] [address] [place], [address] Eosinophils/100 WBC (Bld) 2.1 % Normal 0-5 [facility] Comment on above: Performed By: #### L 300.4700, L300.3900, L300.4310, L100.0100 #### [facility] [address] [place], [address] Erythrocyte distribution width (RBC) [Ratio] 12.8 % Normal 11.6-14.6 [facility] Comment on above: Performed By: #### L 300.4700, L300.3900, L300.4310, L100.0100 #### [facility] [address] [place], [address] Hematocrit (Bld) [Volume fraction] 34.2 % Low 37-47 [facility] Comment on above: Performed By: #### L 300.4700, L300.3900, L300.4310, L100.0100 #### [facility] [address] [place], [address] Hemoglobin (Bld) [Mass/Vol] 11.8 g/dL Low 12.0-15.0 [facility] Comment on above: Performed By: #### L 300.4700, L300.3900, L300.4310, L100.0100 #### [facility] [address] [place], [address] IG% 1.100 High 0.0-0.9 [facility] Comment on above: Result Comment: IG% - Immature Granulocytes (promyelocytes, myelocytes and metamyelocytes) > 1% indicates that a LEFT SHIFT is Present. Performed By: #### L 300.4700, L300.3900, L300.4310, L100.0100 #### [facility] [address] [place], [address] Lymphocytes/100 WBC (Bld) 12.4 % Low 19-41 [facility] Comment on above: Performed By: #### L 300.4700, L300.3900, L300.4310, L100.0100 #### [facility] [address] [place], [address] MCH (RBC) [Entitic mass] 30.6 pg Normal 27.0-32.0 [facility] Comment on above: Performed By: #### L 300.4700, L300.3900, L300.4310, L100.0100 #### [facility] [address] [place], [address] MCHC (RBC) [Mass/Vol] 34.5 g/dL Normal 32-36 [facility] Comment on above: Performed By: #### L 300.4700, L300.3900, L300.4310, L100.0100 #### [facility] [address] [place], [address] MCV (RBC) [Entitic vol] 88.6 fL Normal 81-99 [facility] Comment on above: Performed By: #### L 300.4700, L300.3900, L300.4310, L100.0100 #### [facility] [address] [place], [address] Monocytes/100 WBC (Bld) 5.9 % Normal 0-10 [facility] Comment on above: Performed By: #### L 300.4700, L300.3900, L300.4310, L100.0100 #### [facility] [address] [place], [address] Neutrophils/100 WBC (Bld) 78.1 % High 47-70 [facility] Comment on above: Performed By: #### L 300.4700, L300.3900, L300.4310, L100.0100 #### [facility] [address] [place], [address] Nucleated RBC (Bld) [#/Vol] 0 10*3/uL Normal 0-5 [facility] Comment on above: Performed By: #### L 300.4700, L300.3900, L300.4310, L100.0100 #### [facility] [address] [place], [address] Platelet mean volume (Bld) [Entitic vol] 9.5 fL Normal 6.2-12.0 [facility] Comment on above: Performed By: #### L 300.4700, L300.3900, L300.4310, L100.0100 #### [facility] [address] [place], [address] Platelets (Bld) [#/Vol] 222 10*3/uL Normal 150-450 [facility] Comment on above: Performed By: #### L 300.4700, L300.3900, L300.4310, L100.0100 #### [facility] [address] [place], [address] RBC (Bld) [#/Vol] 3.86 10*6/uL Low 4.2-5.4 [facility] Comment on above: Performed By: #### L 300.4700, L300.3900, L300.4310, L100.0100 #### [facility] [address] [place], [address] RDW SD 41.5 fl Normal 35.1-43.9 [facility] Comment on above: Performed By: #### L 300.4700, L300.3900, L300.4310, L100.0100 #### [facility] [address] [place], [address] WBC (Bld) [#/Vol] 15.6 10*3/uL High 4.4-11.0 [facility] Comment on above: Performed By: #### L 300.4700, L300.3900, L300.4310, L100.0100 #### [facility] [address] [place], [address] CBC panel Auto (Bld)on 02-12 Erythrocyte distribution width (RBC) [Ratio] 12.9 % 11.5 - 15.0 % [facility] Hematocrit (Bld) [Volume fraction] 37.6 % 35.0 - 47.0 % [facility] Hemoglobin (Bld) [Mass/Vol] 12.7 g/dL 11.7 - 16.0 g/dL [facility] Interpretation and review of laboratory results Abnormal [facility] MCH (RBC) [Entitic mass] 30.7 pg 26.0 - 34.0 pg [facility] MCHC (RBC) [Mass/Vol] 33.8 % 30.5 - 36.0 % [facility] MCV (RBC) [Entitic vol] 90.8 fL 77.0 - 99.0 fL [facility] Platelet mean volume (Bld) [Entitic vol] 9.2 fL 9.0 - 12.7 fL [facility] Platelets (Bld) [#/Vol] 238 10*3/uL 140 - 440 10*3/uL [facility] RBC (Bld) [#/Vol] 4.14 10*6/uL 3.80 - 5.2 0 10*6/uL [facility] WBC (Bld) [#/Vol] 15.9 10*3/uL High 3.6 - 10.7 10*3/uL [facility] Eosinophil percentageOrdered By: Samantha Sanders on 02-12-2025 Eosinophils/100 WBC (Bld) 2.1 % 0-5 [facility] Erythrocyte distribution wid th ratioOrdered By: Samantha Sanders on 02-12-2025 Erythrocyte distribution width (RBC) [Ratio] 12.8 % 11.6-14.6 [facility] Erythrocyte distribution wid th standard deviationOrdered By: Samantha Sanders on 02-12-2025 Erythrocyte distribution width (RBC) [Ratio] 41.5 fl 35.1-43.9 [facility] FIBRINOGENon 02-12-2025 FIBRINOGEN 450 mg/dL High 200-400 [facility] Comment on above: Performed By: #### L AB868, [id number], [id number] #### Logistics Analyst: HARIS SIMENTAL ([id number]) [facility] ([facility]) [address] [place] [address] Fibrinogenon 02-12-2025 FIBRINOGEN 460 mg/dl High 203-444 [facility] Comment on above: Performed By: #### L 300.4700, L300.3900, L300.4310, L100.0100 #### [facility] [address] [place], [place], [id number] Fibrinogen Coag (PPP) [Mass/ Vol]on 02-12-2025 Interpretation and review of laboratory results Abnormal [facility] HEPATITIS B SURFACE ANTIGENo n 02-12-2025 HEPATITIS B VIRUS SURFACE AG Not detected Normal Not Detected [facility] Comment on above: Performed By: #### L AB868, [id number], [id number] #### Logistics Analyst: HARIS SIMENTAL ([id number]) [facility] ([facility]) [address] [place] [address] HEPATITIS C ANTIBODYon 02-12 HCV Ab IA Ql Not detected Normal Not Detected [facility] Comment on above: Result Comment: Blanca ents with DETECTED Hepatitis C Ab results should have a new specimen submitted for supplemental testing with a Hepatitis C Quantitative RNA assay (viral load), if clinically indicated. Performed By: #### L AB868, [id number], [id number] #### Logistics Analyst: HARIS SIMENTAL ([id number]) [facility] ([facility]) [address] [place] [address] HIV1,2 COMBO ANTIGEN-ANTIBOD Y SCREENon 02-12-2025 HIV 1,2 COMBO ANTIGEN/ANTIBODY Non-Reactive Normal Nonreactive [facility] Comment on above: Result Comment: The specimen was non-reactive for HIV-1 and HIV-2 antibodies and p24 antigen using an FDA-cleared 4th generation HIV test. Based on this non-reactive screen result, further reflexive testing was not indicated and was, therefore, not performed. Performed By: #### L AB868, [id number], [id number] #### Logistics Analyst: HARIS SIMENTAL ([id number]) [facility] [address] [place] [address] Hematocrit Auto (Bld) [Volum e fraction]Ordered By: Samantha Sanders on 02-12-2025 Hematocrit (Bld) [Volume fraction] 34.2 % Low 37-47 [facility] Hemoglobin measurementOrdere d By: Samantha Sanders on 02-12-2025 Hemoglobin (Bld) [Mass/Vol] 11.8 g/dL Low 12.0-15.0 [facility] Immature granulocytes/100 WB C Auto (Bld)Ordered By: Samantha Sanders on 02-12-2025 Immature granulocytes/100 WBC (Bld) 1.100 % High 0.0-0.9 [facility] Comment on above: IG% - Immature Granu locytes (promyelocytes, myelocytes and metamyelocytes) > 1% indicates that a LEFT SHIFT is Present. International normalized rat io (INR) calculationOrdered By: Samantha Sanders on 02-12-2025 INR Coag (Bld) [Relative time] 0.9 {INR} [facility] - CoagulationOrde red By: Kacy Alanis on 02-12-2025 aPTT Coag (PPP) [Time] 28.9 s 20.0 - 30.5 s [facility] INR Coag (PPP) [Relative time] Low 0.9 - 1.1 [facility] Comment on above: Recommended Anticoag ulant Therapy: SEE BELOW ----- INR of 2.0 - 3.0 : - Prophylaxis of Venous Thrombosis (high-risk surgery) - Treatment of Venous Thrombosis - Treatment of Pulmonary Embolism (Includes tissue heart valves, Acute Myocardial Infarction to prevent systemic embolism, Valvular Heart Disease, and Atrial Fibrillation) ----- INR of 2.5 - 3.5 : - Mechanical Prosthetic Valves (high risk) - If oral anticoagulant therapy is used to prevent Myocardial Infarction PT Coag (Bld) [Time] 9.8 s 9.0 - 12.0 s [facility] - Coagulationon 0 02-12-2025 Fibrinogen Coag (PPP) [Mass/Vol] 450 mg/dL High 200 - 400 mg/dL [facility] - Microbiology an d Antimicrobial susceptibilityon 02-12-2025 HBV surface Ag IA Ql Not detected Not Detected [facility] HCV Ab IA Ql Not detected Not Detected [facility] Comment on above: Patients with DETECT ED Hepatitis C Ab results should have a new specimen submitted for supplemental testing with a Hepatitis C Quantitative RNA assay (viral load), if clinically indicated. HIV 1+2 Ab+HIV1 p24 Ag IA Ql Non-Reactive Nonreactive [facility] Comment on above: The specimen was non -reactive for HIV-1 and HIV-2 antibodies and p24 antigen using an FDA-cleared 4th generation HIV test. Based on this non-reactive screen result, further reflexive testing was not indicated and was, therefore, not performed. MCV (mean corpuscular volume ) determinationOrdered By: Samantha Sanders on 02-12-2025 MCV (RBC) [Entitic vol] 88.6 fL 81-99 [facility] Mean corpuscular hemoglobin (MCH) determinationOrdered By: Samantha Sanders on 02-12-2025 MCH (RBC) [Entitic mass] 30.6 pg 27.0-32.0 [facility] Mean corpuscular hemoglobin concentration (MCHC) determinationOrdered By: Samantha Sanders on 02-12-2025 MCHC (RBC) [Mass/Vol] 34.5 g/dL 32-36 [facility] Mean platelet volume determi nationOrdered By: Samantha Sanders on 02-12-2025 Platelet mean volume (Bld) [Entitic vol] 9.5 fL 6.2-12.0 [facility] Monocyte percentageOrdered B y: Samantha Sanders on 02-12-2025 Monocytes/100 WBC (Bld) 5.9 % 0-10 [facility] Neutrophil percentageOrdered By: Samantha Sanders on 02-12-2025 Neutrophils/100 WBC (Bld) 78.1 % High 47-70 [facility] No Panel Informationon 02-12 Interpretation and review of laboratory results Normal [facility] No Panel InformationOrdered By: Kacy Alanis on 02-12-2025 Interpretation and review of laboratory results Abnormal [facility] Nucleated red blood cell per centageOrdered By: Samantha Sanders on 02-12-2025 Nucleated RBC/100 WBC (Bld) [Ratio] 0 % 0-5 [facility] OB Triage Progress Noteon OB Triage Progress Note [facility] Medical Records Department [address] [place] [address] OB Triage Progress Note 02/12/25 1344 MR#: [id number] Acct: [id number] Name: LINA GILBERT Rep #: [id number] : 1995 29 From: Samantha Sanders MD PCP: Status:REG CLI Y DOS: [id number] Notes Date of Service: 02/12/25 Progress Note: Patient seen for heavy vaginal bleeding. Placental abruption diagnosed at office yesterday. Patient has had bleeding throughout the beginning of the . Today had increased bleeding since 3 AM and cramping cannot sit up without having heavier bleeding so she has been staying laying down. Presented to the hospital today for evaluation. Upon evaluation heart tones present and 150s upon brief bedside ultrasound placenta seen to be more than was yesterday across the back wall and 1 cm clot seen at the top of the cervix. Cervix closed thick high with dark old blood present in the vaginal vault. Labs drawn and sent, hemoglobin dropped 1 g the rest of the labs are stable. Maternal- medicine evaluation recommended, they recommended ER evaluation as they will not see an abruption in the office. Discussed with patient transport via squad or personal car. At this time patient is stable enough for transport via personal car due to Pree viability and bleeding is decreased significantly. Recommend transfer up to [facility] for evaluation in the emergency room. Laboratory Studies: Laboratory Tests 02/12/25 Range/Units 11:15 WBC 15.6 H (4.4-11.0) K/mm3 RBC 3.86 L (4.2-5.4) M/mm3 Hgb 11.8 L (12.0-15.0) g/dL Hct 34.2 L (37-47) % MCV 88.6 (81-99) fL MCH 30.6 (27.0-32.0) pg MCHC 34.5 (32-36) g/dL RDW Std Deviation 41.5 (35.1-43.9) fl RDW Coeff of Nathaly 12.8 (11.6-14.6) % Plt Count 222 (150-450) K/mm3 MPV 9.5 (6.2-12.0) fl Immature Gran % (Auto) 1.100 H (0.0-0.9) % Neut % (Auto) 78.1 H (47-70) % Lymph % (Auto) 12.4 L (19-41) % Arenac % (Auto) 5.9 (0-10) % Eos % (Auto) 2.1 (0-5) % Baso % (Auto) 0.4 (0-1) % Absolute Neuts (auto) 12.2 H (2.0-7.7) X10 3/uL Absolute Lymphs (auto) 1.94 (0.83-4.51) X10 3/uL Nucleated RBC % 0 (0-5) % PT 12.6 (11.7-14.9) SECONDS INR 0.9 APTT 30.3 (24.1-36.2) Seconds Fibrinogen 460 H (203-444) mg/dl Charges/Coding Multi Select Codes Urinary/Genital Urinary/Genital CPT Codes: No Charge 02/12/25 6874 Date Samantha Sanders MD Cosigner Signature (if applicable): Date ___ CC: Dr. Samantha Sanders MD Signed Normal [facility] PROTIME AND APTTon aPTT Coag (Bld) [Time] 28.9 s Normal 20.0-30.5 [facility] Comment on above: Performed By: #### L AB868, [id number], [id number] #### Logistics Analyst: HARIS SIMENTAL ([phone]) [facility] ([facility]) [address] [place] [address] INR Coag (PPP) [Relative time] {INR} Low 0.9-1.1 [facility] Comment on above: Result Comment: Nicola mmended Anticoagulant Therapy: SEE BELOW ----- INR of 2.0 - 3.0 : - Prophylaxis of Venous Thrombosis (high-risk surgery) - Treatment of Venous Thrombosis - Treatment of Pulmonary Embolism (Includes tissue heart valves, Acute Myocardial Infarction to prevent systemic embolism, Valvular Heart Disease, and Atrial Fibrillation) ----- INR of 2.5 - 3.5 : - Mechanical Prosthetic Valves (high risk) - If oral anticoagulant therapy is used to prevent Myocardial Infarction Performed By: #### L AB868, [id number], [id number] #### Logistics Analyst: HARIS SIMENTAL ([id number]) [facility] ([facility]) [address] [place] [address] PT Coag (PPP) [Time] 9.8 s Normal 9.0-12.0 [facility] Comment on above: Performed By: #### L AB868, [id number], [id number] #### Logistics Analyst: HARIS SIMENTAL ([id number]) [facility] ([facility]) [address] [place] [address] Partial Thromboplast Timeon 02-12-2025 aPTT Coag (Bld) [Time] 30.3 s Normal 24.1-36.2 [facility] Comment on above: Performed By: #### L 300.4700, L300.3900, L300.4310, L100.0100 #### [facility] [address] [place], [place], [id number] Platelet countOrdered By: Nas Sanders on 02-12-2025 Platelets (Bld) [#/Vol] 222 10*3/uL 150-450 [facility] Progress Noteon 02-12-2025 Progress Note Department of Obstetrics and Gynecology OB Emergency Department Note CHIEF CONCERN: Concern for placental abruption HISTORY OF PRESENT ILLNESS: The patient is a 29 y.o. at 17w1d who presents with the above chief concern. Patient presents from private office for US. Per patient, this is her fifth , reports 4 prior term vaginal deliveries at home. She is dated by her LMP. She notes she has been having intermittent episodes of bleeding this , notes some times it is heavy like a period with passage of clots. Reports she was told she has a subchorionic hematoma earlier in this . She notes she was seen in the office today for concerns for bleeding. She denies current bleeding. She denies pain at this time. She denies current medical history or surgeries. Estimated Due Date: Estimated Date of Delivery: 07/22/25 CARE: Complicated by: Limited care, vaginal bleeding DETAILED OB HISTORY: OB History Para Term AB Living 5 4 4 4 SAB IAB Ectopic Multiple Live Births # Outcome Date GA Lbr Jarek/2nd Weight Sex Type Anes PTL Lv 5 Current 4 Term 3 Term 2 Term 1 Term PAST MEDICAL HISTORY: Medical History[1] PAST SURGICAL HISTORY: Surgical History[2] SOCIAL HISTORY: None MEDICATIONS: Prior to Admission medications Not on File REVIEW OF SYSTEMS: Pertinent items are noted in HPI. APPEARANCE: Pain: No PHYSICAL EXAM: Vital Signs: VS wnl-reviewed/Respi rations normal effort Vitals: 02/12/25 1547 BP: 110/63 Pulse: 97 Resp: 18 SpO2: 98% General: NAD alert and oriented Heart: RR Lungs: No resp distress Abdomen: soft, NT, ND, no rebound/guarding Uterus: gravid/non-tender Speculum Exam: patient declines Membranes: Intact Cervix: defer LE Edema: trace Psych: normal mood and affect RESULTS: heart rate: 160 on BSUS TRIAGE COURSE: FHR 160 on BSUS. VSS. Patient comfortable appearing. Recommended pelvic exam to assess bleeding, patient declines, states she is currently not bleeding. Recommended admission for formal US in am. Coags ordered. labs ordered. ESSION: Vaginal Bleeding Pain assessment and plan: None Patient seen and evaluated and plan discussed with in house Triage Attending Dr. Cooper CRIMINAL INTELLIGENCE ANALYST PROVIDER: Dr. Dominguez DISPOSITION: Admit to Antepartum (PNU) [1] History reviewed. No pertinent past medical history. [2] Past Surgical History: Procedure Laterality Date TOOTH EXTRACTION Normal [facility] Prothrombin Time w/INRon INR Coag (PPP) [Relative time] 0.9 {INR} Normal [facility] Comment on above: Performed By: #### L 300.4700, L300.3900, L300.4310, L100.0100 #### [facility] [address] [facility] [place], [address] PT Coag (PPP) [Time] 12.6 s Normal 11.7-14.9 [facility] Comment on above: Performed By: #### L 300.4700, L300.3900, L300.4310, L100.0100 #### [facility] [address] [place], [address] Prothrombin timeOrdered By: Samantha Sanders on 02-12-2025 PT Coag (PPP) [Time] 12.6 s 11.7-14.9 [facility] RBC Auto (Bld) [#/Vol]Ordere d By: Samantha Sanders on 02-12-2025 RBC (Bld) [#/Vol] 3.86 10*6/uL Low 4.2-5.4 [facility] RPR WITH REFLEX QUANTon 02-03 RPR Non-Reactive Normal Nonreactive [facility] Comment on above: Performed By: #### L AB868, [id number], [id number] #### Logistics Analyst: HARIS SIMENTAL ([id number]) [facility] ([facility]) [address] [place] [address] RUBELLA ANTIBODY, IGGon 02-03 RUBELLA IMMUNE STATUS (LIAISON XL) 8.860 Normal >=0.900 [facility] Comment on above: Result Comment: ANAM R COMMENTS: Interpretation Table: <0.900 Antibody NOT Detected >=0.900 AND <1.000 Antibody Equivocal >=1.000 Antibody Detected Performed By: #### L AB868, [id number], [id number] #### Logistics Analyst: HARIS SIMENTAL ([id number]) [facility] ([facility]) [address] [place] [address] URINE CULTUREon 02-12-2025 Bacteria identified Cx Nom (U) URINE CULTURE Reference Normal urogenital maria luisa present [ S = SUSCEPTIBLE R = RESISTANT I = INTERMEDIATE S-DD = Susceptible-dose dependent NS = Non-susceptible NO = No Interpretation ] Normal [facility] Comment on above: Performed By: #### L AB868, [id number], [id number] #### Logistics Analyst: HARIS SIMENTAL ([id number]) [facility] [address] [place] [address] White blood cell (WBC) count Ordered By: Samantha Sanders on 02-12-2025 WBC (Bld) [#/Vol] 15.6 10*3/uL High 4.4-11.0 [facility] Absolute lymphocyte countOrd ered By: Samantha Sanders on 02-11-2025 Lymphocytes Auto (Unsp spec) [#/Vol] 2.13 10*3/uL 0.83-4.51 [facility] Absolute neutrophil countOrd ered By: Samantha Sanders on 02-11-2025 Neutrophils (Bld) [#/Vol] 12.6 10*3/uL High 2.0-7.7 [facility] Activated partial thrombopla stin time (aPTT) in platelet poor plasma by coagulation aOrdered By: Samantha Sanders on 02-11-2025 aPTT Coag (PPP) [Time] 29.5 s 24.1-36.2 [facility] Automated lymphocyte count a s percentage of total leukocytesOrdered By: Samantha Sanders on 02-11-2025 Lymphocytes/100 WBC Auto (Unsp spec) 13.2 % Low 19-41 [facility] Basophil percentageOrdered B y: Samantha Sanders on 02-11-2025 Basophils/100 WBC (Bld) 0.2 % 0-1 [facility] CBC W/Diff, Automatedon Absolute Lymph 2.13 X10 3/uL Normal 0.83-4.51 [facility] Comment on above: Performed By: #### L 509.4006, L3890.6301, L3890.6102, L3890.6006, L509.8002, L300.4700, BTS, L300.4310, L300.3900, L100.0100 #### [facility] [address] [place], [place], [id number] (656) Absolute Neut 12.6 X10 3/uL High 2.0-7.7 [facility] Comment on above: Performed By: #### L 509.4006, L3890.6301, L3890.6102, L3890.6006, L509.8002, L300.4700, BTS, L300.4310, L300.3900, L100.0100 #### [facility] [address] [facility] [place], [place], [phone] (275) Basophils/100 WBC (Bld) 0.2 % Normal 0-1 [facility] Comment on above: Performed By: #### L 509.4006, L3890.6301, L3890.6102, L3890.6006, L509.8002, L300.4700, BTS, L300.4310, L300.3900, L100.0100 #### [facility] [address] [place], [place], [phone] (347) Eosinophils/100 WBC (Bld) 1.9 % Normal 0-5 [facility] Comment on above: Performed By: #### L 509.4006, L3890.6301, L3890.6102, L3890.6006, L509.8002, L300.4700, BTS, L300.4310, L300.3900, L100.0100 #### [facility] [address] [place], [address] Erythrocyte distribution width (RBC) [Ratio] 12.8 % Normal 11.6-14.6 [facility] Comment on above: Performed By: #### L 509.4006, L3890.6301, L3890.6102, L3890.6006, L509.8002, L300.4700, BTS, L300.4310, L300.3900, L100.0100 #### [facility] [address] [place], [place], [id number] Hematocrit (Bld) [Volume fraction] 37.1 % Normal 37-47 [facility] Comment on above: Performed By: #### L 509.4006, L3890.6301, L3890.6102, L3890.6006, L509.8002, L300.4700, BTS, L300.4310, L300.3900, L100.0100 #### [facility] [address] [place], [place], [phone] Hemoglobin (Bld) [Mass/Vol] 12.7 g/dL Normal 12.0-15.0 [facility] Comment on above: Performed By: #### L 509.4006, L3890.6301, L3890.6102, L3890.6006, L509.8002, L300.4700, BTS, L300.4310, L300.3900, L100.0100 #### [facility] [address] [place], [place], [id number] IG% 1.100 High 0.0-0.9 [facility] Comment on above: Result Comment: IG% - Immature Granulocytes (promyelocytes, myelocytes and metamyelocytes) > 1% indicates that a LEFT SHIFT is Present. Performed By: #### L 509.4006, L3890.6301, L3890.6102, L3890.6006, L509.8002, L300.4700, BTS, L300.4310, L300.3900, L100.0100 #### [facility] [address] [place], [address] Lymphocytes/100 WBC (Bld) 13.2 % Low 19-41 [facility] Comment on above: Performed By: #### L 509.4006, L3890.6301, L3890.6102, L3890.6006, L509.8002, L300.4700, BTS, L300.4310, L300.3900, L100.0100 #### [facility] [address] [facility] [place], [address] MCH (RBC) [Entitic mass] 30.4 pg Normal 27.0-32.0 [facility] Comment on above: Performed By: #### L 509.4006, L3890.6301, L3890.6102, L3890.6006, L509.8002, L300.4700, BTS, L300.4310, L300.3900, L100.0100 #### [facility] [address] [facility] [place], [address] MCHC (RBC) [Mass/Vol] 34.2 g/dL Normal 32-36 [facility] Comment on above: Performed By: #### L 509.4006, L3890.6301, L3890.6102, L3890.6006, L509.8002, L300.4700, BTS, L300.4310, L300.3900, L100.0100 #### [facility] [address] [facility] [place], [address] MCV (RBC) [Entitic vol] 88.8 fL Normal 81-99 [facility] Comment on above: Performed By: #### L 509.4006, L3890.6301, L3890.6102, L3890.6006, L509.8002, L300.4700, BTS, L300.4310, L300.3900, L100.0100 #### [facility] [address] [facility] [place], [address] Monocytes/100 WBC (Bld) 5.4 % Normal 0-10 [facility] Comment on above: Performed By: #### L 509.4006, L3890.6301, L3890.6102, L3890.6006, L509.8002, L300.4700, BTS, L300.4310, L300.3900, L100.0100 #### [facility] [address] [facility] [place], [address] (310) Neutrophils/100 WBC (Bld) 78.2 % High 47-70 [facility] Comment on above: Performed By: #### L 509.4006, L3890.6301, L3890.6102, L3890.6006, L509.8002, L300.4700, BTS, L300.4310, L300.3900, L100.0100 #### [facility] [address] [facility] [place], [address] (865) Nucleated RBC (Bld) [#/Vol] 0 10*3/uL Normal 0-5 [facility] Comment on above: Performed By: #### L 509.4006, L3890.6301, L3890.6102, L3890.6006, L509.8002, L300.4700, BTS, L300.4310, L300.3900, L100.0100 #### [facility] [address] [place], [address] ( Platelet mean volume (Bld) [Entitic vol] 9.4 fL Normal 6.2-12.0 [facility] Comment on above: Performed By: #### L 509.4006, L3890.6301, L3890.6102, L3890.6006, L509.8002, L300.4700, BTS, L300.4310, L300.3900, L100.0100 #### [facility] [address] [place], [address] Platelets (Bld) [#/Vol] 230 10*3/uL Normal 150-450 [facility] Comment on above: Performed By: #### L 509.4006, L3890.6301, L3890.6102, L3890.6006, L509.8002, L300.4700, BTS, L300.4310, L300.3900, L100.0100 #### [facility] [address] [place], [address] RBC (Bld) [#/Vol] 4.18 10*6/uL Low 4.2-5.4 [facility] Comment on above: Performed By: #### L 509.4006, L3890.6301, L3890.6102, L3890.6006, L509.8002, L300.4700, BTS, L300.4310, L300.3900, L100.0100 #### [facility] [address] [place], [address] RDW SD 41.9 fl Normal 35.1-43.9 [facility] Comment on above: Performed By: #### L 509.4006, L3890.6301, L3890.6102, L3890.6006, L509.8002, L300.4700, BTS, L300.4310, L300.3900, L100.0100 #### [facility] [address] [place], [address] WBC (Bld) [#/Vol] 16.1 10*3/uL High 4.4-11.0 [facility] Comment on above: Performed By: #### L 509.4006, L3890.6301, L3890.6102, L3890.6006, L509.8002, L300.4700, BTS, L300.4310, L300.3900, L100.0100 #### [facility] [address] [place], [address] Eosinophil percentageOrdered By: Samantha Sanders on 02-11-2025 Eosinophils/100 WBC (Bld) 1.9 % 0-5 [facility] Erythrocyte distribution wid th ratioOrdered By: Samantha Sanders on 02-11-2025 Erythrocyte distribution width (RBC) [Ratio] 12.8 % 11.6-14.6 [facility] Erythrocyte distribution wid th standard deviationOrdered By: Samantha Sanders on 02-11-2025 Erythrocyte distribution width (RBC) [Ratio] 41.9 fl 35.1-43.9 [facility] Fibrinogenon 02-11-2025 FIBRINOGEN 517 mg/dl High 203-444 [facility] Comment on above: Performed By: #### L 509.4006, L3890.6301, L3890.6102, L3890.6006, L509.8002, L300.4700, BTS, L300.4310, L300.3900, L100.0100 ####[facility] [address] [facility] [place], [address] HIVon 02-11-2025 HIV Non-Reactive Normal Nonreactive [facility] Comment on above: Result Comment: Non- Reactive Reactive Repeatedly reactive samples must be confirmed according to CDC recommended confirmatory algorithms. The subresults for either HIVAG or AHIV can be used as an aid in the selection of the confirmation algorithm for reactive samples. Send out specimens with Reactive results to [facility] for confirmation. Order the HIV antibody detection and differentiation: lc#[id number] Performed By: #### L 509.4006, L3890.6301, L3890.6102, L3890.6006, L509.8002, L300.4700, BTS, L300.4310, L300.3900, L100.0100 ####[facility] [address] [place], [address] Hematocrit Auto (Bld) [Volum e fraction]Ordered By: Samantha Sanders on 02-11-2025 Hematocrit (Bld) [Volume fraction] 37.1 % 37-47 [facility] Hemoglobin measurementOrdere d By: Samantha Sanders on 02-11-2025 Hemoglobin (Bld) [Mass/Vol] 12.7 g/dL 12.0-15.0 [facility] Hepatitis C Antibodyon 02-11 Hepatitis C Ab Non-Reactive Normal Nonreactive [facility] Comment on above: Result Comment: Reac tive: Presumptive evidence of antibodies to HCV. Follow CDC recommendations for supplemental testing. Non-Reactive: Antibodies to HCV were not detected; does not exclude the possibility of exposure to HCV Reactive Results are presumptive evidence of antibodies to HCV. Follow CDC recommendations for supplemental testing. Order confirmation testing: HCV Quant by PCR testing - HCVPCR #[id number] Non Reactive: < 0.8 Equivocal: >/= 0.8 to < 1.0 Reactive: >/= 1.0 The CDC requires that a reactive/equivocal HCV antibody result be sent out for confirmation. HCV Quant by PCR testing. Performed By: #### L 509.4006, L3890.6301, L3890.6102, L3890.6006, L509.8002, L300.4700, BTS, L300.4310, L300.3900, L100.0100 ####[facility] [address] [place], [address] Immature granulocytes/100 WB C Auto (Bld)Ordered By: Samantha Sanders on 02-11-2025 Immature granulocytes/100 WBC (Bld) 1.100 % High 0.0-0.9 [facility] Comment on above: IG% - Immature Granu locytes (promyelocytes, myelocytes and metamyelocytes) > 1% indicates that a LEFT SHIFT is Present. International normalized rat io (INR) calculationOrdered By: Samantha Sanders on 02-11-2025 INR Coag (Bld) [Relative time] 0.9 {INR} [facility] L3890.6102on 02-11-2025 HEP B Surf Ag Non-Reactive Normal Nonreactive [facility] Comment on above: Result Comment: Reac tive: Presumptive evidence of HBV. Repeatedly reactive samples must be confirmed using a neutralization test ([employer] HBsAg Confirmatory Test) Non-Reactive: HBsAg not detected; does not exclude the possibility of exposure to HBV Performed By: #### L 509.4006, L3890.6301, L3890.6102, L3890.6006, L509.8002, L300.4700, BTS, L300.4310, L300.3900, L100.0100 ####[facility] [address] [facility] [place], [place], [address] L509.4006on 02-11-2025 Rubella IgG REAC Normal Nonreactive [facility] Comment on above: Result Comment: Anti body Result: Interpretation Non-Reactive: Non-Immune Reactive: Immune The following results were obtained with the [employer] Rubella IgG assay. Results from assays of other manufacturers cannot be used interchangeably. Performed By: #### L 509.4006, L3890.6301, L3890.6102, L3890.6006, L509.8002, L300.4700, BTS, L300.4310, L300.3900, L100.0100 ####[facility] [address] [place], [place], [id number] Laboratory - Microbiology an d Antimicrobial susceptibilityOrdered By: Samantha Sanders on 02-11-2025 HBV surface Ag Ql (S) Non-Reactive Nonreactive [facility] Comment on above: Reactive: Presumptiv e evidence of HBV. Repeatedly reactive samples must be confirmed using a neutralization test ([employer] HBsAg Confirmatory Test)Non-Reactive: HBsAg not detected; does not exclude the possibility of exposure to HBV MCV (mean corpuscular volume ) determinationOrdered By: Samantha Sanders on 02-11-2025 MCV (RBC) [Entitic vol] 88.8 fL 81-99 [facility] Mean corpuscular hemoglobin (MCH) determinationOrdered By: Samantha Sanders on 02-11-2025 MCH (RBC) [Entitic mass] 30.4 pg 27.0-32.0 [facility] Mean corpuscular hemoglobin concentration (MCHC) determinationOrdered By: Samantha Sanders on 02-11-2025 MCHC (RBC) [Mass/Vol] 34.2 g/dL 32-36 [facility] Mean platelet volume determi nationOrdered By: Samantha Sanders on 02-11-2025 Platelet mean volume (Bld) [Entitic vol] 9.4 fL 6.2-12.0 [facility] Monocyte percentageOrdered B y: Samantha Sanders on 02-11-2025 Monocytes/100 WBC (Bld) 5.4 % 0-10 [facility] Neutrophil percentageOrdered By: Samantha Sanders on 02-11-2025 Neutrophils/100 WBC (Bld) 78.2 % High 47-70 [facility] No Panel InformationOrdered By: Samantha Sanders on 02-11-2025 HIV (1&2) Antibody Non-Reactive Nonreactive [facility] Comment on above: Non-ReactiveReactive Repeatedly reactive samples must be confirmed according to CDC recommended confirmatory algorithms. The subresults for either HIVAG or AHIV can be used as an aid in the selection of the confirmation algorithm for reactive samples.Send out specimens with Reactive results to [facility] for confirmation.Order the HIV antibody detection and differentiation: #[id number] Nucleated red blood cell per centageOrdered By: Samantha Sanders on 02-11-2025 Nucleated RBC/100 WBC (Bld) [Ratio] 0 % 0-5 [facility] Stock Associate Office Visit Reporton 02-11-2025 Stock Associate Office Visit Report [facility] [address], [address] [place] [address] OFFICE VISIT Date of Service: 02/11/25 MR#: [id number] Acct: [id number] Name: LINA GILBERT Rep #: [id number] : 1995 Provider: Dr. Samantha lenz MD Age/Sex: 29/F [place] [facility] Status: Signed Intake Vital Signs 02/11/25 12:49 Height 5 ft 6.5 in Weight: 141 lb 1 oz BMI 22.4 BP 102/66 Intake Visit Reasons: 2nd Tri Bleeding *per Batch Still Operator Required: No Is patient in pain?: Yes (extreme cramping, not constant, increases at night) Allergies gluten Allergy (Unknown, Verified 02/11/25 12:51) Other Medications ???Medication ???Instructions ???Recorded ???Confirmed ???Type B Complex PO 02/11/25 History Last Menstrual Period: 10/15/24 Zika: Zika virus screening: Negative PFSH PFSH Surgical History (Updated 02/11/25 @ 12:54 by Keisha Muñoz) History of dental surgery Social History (Updated 02/11/25 @ 12:56 by Keisha Muñoz) household members: spouse and children number of children: 4 current occupation: [employer] Smoking Status: Never smoker alcohol intake: never substance use type: does not use do you feel safe at home: Yes additional social history: Jesus Alberto ([place]) History 5 Elective abortions Hx Para 4 Spontaneous abortions Hx # Term Pregnancies Ectopic pregnancies Hx # Pregnancies Multiple births # of living children 4 Past Pregnancies Del. Date Name GA/Weeks Outcome Route Bth Weight Gen Labor Lgth Anesthesia Del Locatn Provider FOB Unknown 2018 [place] live - full term Unknown 2019 Zofia live - full term Unknown 2020 Ej live - full term Unknown 2022 Jaida live - full term HPI 2nd Tri Bleeding *per Details: LINA GILBERT is a 29 year old who presents for New OB visit. OB Visit RADHA Calculator Estimated Delivery Date Method Current WG Current Estimate 07/22/25 LMP (Certain) 17w 0d Expected Delivery Route/Plan Labor Preferences- CB/BF classes: [] labor support person: [] labor intervention preferences: [] pain management options preferred: [] cut cord/dad catch: [] : [] PP control planned: [] discussed possible routes of delivery and associated risks: [] special requests: [] Specific Issue/Plans Covid status: [] Flu vaccine: [] Tdap vaccine: [] Rhogam: [] LARC form signed: [] Problem list reviewed and updated with the most current plan of care details and appropriate orders placed. Relevant counseling for the gestational age provided. Continue routine care and follow up unless otherwise noted in visit notes/problem list details Initial Weight: Not Recorded Date -???-???-???-???-? ??-???-???-???-??? -???-???-???- EGA Weight BP Urine Prot -???-???-???-???-? ??-???-???-???-??? -???-???-???- Glucose FHR FuHt Pres Dilation -???-???-???-???-? ??-???-???-???-??? -???-???-???- Effaced St Visit Note 02/11/25 -???-???-???-???-? ??-???-???-???-??? -???-???-???- 17w 0d 141 lb 1 oz 102/66 -???-???-???-???-? ??-???-???-???-??? -???-???-???- 150 -???-???-???-???-? ??-???-???-???-??? -???-???-???- SM- ZE from Fam [facility] SM- ZE from Fam [facility]. SM- ZE from Fam [facility] due to va ginla bleeding throughout the beginning of the . 1x3 cm marginal placental abruption seen on ultrasound no previa amniotic fluid growwly normal amount but granular appearance. Menstrual History Last Menstrual Period: 10/15/24 ROS Const Denies fever(s) GI Reports as per HPI Reports as per HPI and Denies dysuria Exam Const General: healthy appearing, comfortable and no acute distress GI Inspection: normal to inspection Palpation: soft and nontender Coding Level of Care Code OB Routine Diagnoses Placental abruption in second trimester O45.92 Supervision of high-risk O09.90 Z34.90 Assessment and Plan Assessment and Plan (1) Placental abruption in second trimester: Status: Acute Comment: mfm consult and anatomy scan (2) Supervision of high-risk : Status: Acute Comment: RADHA 07/22/25 PC zofia Vang simeon, miriam Ravin (3) : Status: Acute Comment: ZE fam montilla due to persistent vb. genetic, carrier, afp declined. Orders: Orders CBC W/Diff, Automated Today O09.90 - Supervision of high risk , unspecified, unspecified trimester Type Screen Today O09.90 - Supervision of high risk , unspecified, unspecified trimester Rubella IgG Today O09.90 - Supervision of high risk , unspecified, unspecified trimester Hepatitis C Antibody Today O09.90 - Supervision of (more content not included)... Normal [facility] Partial Thromboplast Timeon 02-11-2025 aPTT Coag (Bld) [Time] 29.5 s Normal 24.1-36.2 [facility] Comment on above: Performed By: #### L 509.4006, L3890.6301, L3890.6102, L3890.6006, L509.8002, L300.4700, BTS, L300.4310, L300.3900, L100.0100 ####[facility] [address] [place], [place], [id number] Platelet countOrdered By: Nas Sanders on 02-11-2025 Platelets (Bld) [#/Vol] 230 10*3/uL 150-450 [facility] Prothrombin Time w/INRon INR Coag (PPP) [Relative time] 0.9 {INR} Normal [facility] Comment on above: Performed By: #### L 509.4006, L3890.6301, L3890.6102, L3890.6006, L509.8002, L300.4700, BTS, L300.4310, L300.3900, L100.0100 ####[facility] [address] [place], [place], [id number] PT Coag (PPP) [Time] 12.4 s Normal 11.7-14.9 [facility] Comment on above: Performed By: #### L 509.4006, L3890.6301, L3890.6102, L3890.6006, L509.8002, L300.4700, BTS, L300.4310, L300.3900, L100.0100 ####[facility] [address] [place], [place], [phone] Prothrombin timeOrdered By: Samantha Sanders on 02-11-2025 PT Coag (PPP) [Time] 12.4 s 11.7-14.9 [facility] RBC Auto (Bld) [#/Vol]Ordere d By: Samantha Sanders on 02-11-2025 RBC (Bld) [#/Vol] 4.18 10*6/uL Low 4.2-5.4 [facility] Syphilis Antibodieson 2024 Syphilis Abs Non-Reactive Normal Nonreactive [facility] Comment on above: Performed By: #### L 509.4006, L3890.6301, L3890.6102, L3890.6006, L509.8002, L300.4700, BTS, L300.4310, L300.3900, L100.0100 ####[facility] [address], [address] Type AND Screenon 02-11-2025 Ab SCREEN GEL Negative Normal [facility] Comment on above: Order Comment: PN Performed By: #### L 509.4006, L3890.6301, L3890.6102, L3890.6006, L509.8002, L300.4700, BTS, L300.4310, L300.3900, L100.0100 #### [facility] [address] [place], [place], [phone] Urine cultureOrdered By: Obi Sanders on 02-11-2025 Bacteria identified Cx Nom (U) Positive Abnormal [facility] White blood cell (WBC) count Ordered By: Samantha Sanders on 02-11-2025 WBC (Bld) [#/Vol] 16.1 10*3/uL High 4.4-11.0 [facility] VARISon 10-13-[address] Positive Normal [facility] ([place]) Comment on above: Result Comment: This immune status assay detects antibody to Varicella Zostervirus. Interpret results in conjunction with clinical history. Positive: Reactive for antibodies to Varicella IgG. If clinically indicated, order Varicella IGM to rule out recent infection. Equivocal: Equivocal for antibodies to Varicella IgG. Suggest repeat testing in 10-14 days. Negative: Non-reactive for antibodies to Varicella IgG.Sera will be held 4-6 weeks if further testing is required. Performed By: #### T SH, CBC, ADIFF, ANEU, ABOG, ANSG ####[place] [address]#### RPR, RUBIS, HBSAG, VARIS ####[place] [address] HBSAGon 10-12-2017 Hep B Surf Ag Negative Normal Negative [facility] ([place] Comment on above: Performed By: #### T SH, CBC, ADIFF, ANEU, ABOG, ANSG ####[place] [address]#### RPR, RUBIS, HBSAG, VARIS ####[place] [address] RPRon 10-12-2017 Reagin antibody presence Non-Reactive Normal Non-React los [facility] ([place] Comment on above: Result Comment: The RPR test is a non-treponemal assay useful as an aidin the diagnosis of primary and secondary syphilis. Itconverts to positive generally within 2 weeks after theappearance of a lesion. This test is also useful formonitoring response to antibiotic therapy.A positive RPR screening test will be followed by theFTA ABS test.False positive RPR tests may occur in 1) patients withunderlying autoimmune disorders, 2) elderly patients,3) , and 4) other conditions with abnormal serumglobulins. Performed By: #### T SH, CBC, ADIFF, ANEU, ABOG, ANSG ####[place] [address]#### RPR, RUBIS, HBSAG, VARIS ####[place] [address] RUBISon 10-12-[address] Positive Normal Positive [facility] ([place] Comment on above: Result Comment: This immune status assay detects IgM and/or IgG antibody to Rubella. Interpret results in conjunction with clinical history. POS: Antibody detected; exposure at undetermined recent or distant time. If clinically indicated, order Rubella IGM to rule out recent infection. NEG: No antibody detected. Performed By: #### T SH, CBC, ADIFF, ANEU, ABOG, ANSG ####[place] [address]#### RPR, RUBIS, HBSAG, VARIS ####[place] [address] .Auto Diffon 10-11-2017 Basophils Auto #/vol (Bld) 0.00 10 3/mcL Normal 0.00-0.19 [facility] ([place]) Comment on above: Performed By: #### T SH, CBC, ADIFF, ANEU, ABOG, ANSG ####[place] [address]#### RPR, RUBIS, HBSAG, VARIS ####[place] [address] Basophils/100 WBC Auto (Bld) 0.1 % Normal 0.0-2.5 [facility] ([place]) Comment on above: Performed By: #### T SH, CBC, ADIFF, ANEU, ABOG, ANSG ####[place] [address]#### RPR, RUBIS, HBSAG, VARIS ####[place] [address] Eosinophils 0.20 10 3/mcL Normal 0.00-0.40 [facility] ([place]) Comment on above: Performed By: #### T SH, CBC, ADIFF, ANEU, ABOG, ANSG ####[place] [address]#### RPR, RUBIS, HBSAG, VARIS ####[address] [address] Eosinophils/100 leukocytes 1.7 % Normal 0.0-7.0 [facility] ([place]) Comment on above: Performed By: #### T SH, CBC, ADIFF, ANEU, ABOG, ANSG ####[place] [address]#### RPR, RUBIS, HBSAG, VARIS ####[address] [address] Lymphocytes 0.90 10 3/mcL Normal 0.77-3.85 [facility] ([place]) Comment on above: Performed By: #### T SH, CBC, ADIFF, ANEU, ABOG, ANSG ####[place] [address]#### RPR, RUBIS, HBSAG, VARIS ####[address] [address] Lymphocytes/100 leukocytes 7.2 % Low 10.0-50.0 [facility] ([place]) Comment on above: Performed By: #### T SH, CBC, ADIFF, ANEU, ABOG, ANSG ####[place] [address]#### RPR, RUBIS, HBSAG, VARIS ####[address] [address] Monocytes 0.90 10 3/mcL Normal 0.15-1.00 [facility] ([place]) Comment on above: Performed By: #### T SH, CBC, ADIFF, ANEU, ABOG, ANSG ####[place] [address]#### RPR, RUBIS, HBSAG, VARIS ####[address] [address] Monocytes/100 leukocytes 7.5 % Normal 1.7-13.0 [facility] ([place]) Comment on above: Performed By: #### T SH, CBC, ADIFF, ANEU, ABOG, ANSG ####[place] [address]#### RPR, RUBIS, HBSAG, VARIS ####[address] [address] Neutrophils/100 WBC Auto (Bld) 83.5 % High 37.0-80.0 [facility] ([place]) Comment on above: Performed By: #### T SH, CBC, ADIFF, ANEU, ABOG, ANSG ####[place] [address]#### RPR, RUBIS, HBSAG, VARIS ####[place] [address] .NEUABSon 10-11-2017 Neutrophils 10.30 10 3/mcL High 2.85-6.16 [facility] ([place]) Comment on above: Performed By: #### T SH, CBC, ADIFF, ANEU, ABOG, ANSG ####[place] [address]#### RPR, RUBIS, HBSAG, VARIS ####[address] [address] CBCon 10-11-2017 Erythrocyte distribution width Auto Ratio (RBC) 13.6 % Normal 11.5-14.5 [facility] ([place]) Comment on above: Performed By: #### T SH, CBC, ADIFF, ANEU, ABOG, ANSG ####[place] [address]#### RPR, RUBIS, HBSAG, VARIS ####[place] [address] Erythrocytes (RBC) 4.13 10 6/mcL Low 4.20-5.40 [facility] ([place]) Comment on above: Performed By: #### T SH, CBC, ADIFF, ANEU, ABOG, ANSG ####[place] [address]#### RPR, RUBIS, HBSAG, VARIS ####[place] [address] Hematocrit (HCT) 37.8 % Normal 37.0-47.0 [facility] ([place] Comment on above: Performed By: #### T SH, CBC, ADIFF, ANEU, ABOG, ANSG ####[place] [address]#### RPR, RUBIS, HBSAG, VARIS ####[place] [address] Hemoglobin mass conc (Bld) 12.9 G/dL Normal 12.0-16.0 [facility] ([place] Comment on above: Performed By: #### T SH, CBC, ADIFF, ANEU, ABOG, ANSG ####[place] [address]#### RPR, RUBIS, HBSAG, VARIS ####[place] [address] MCH 31.3 pg High 27.0-31.2 [facility] ([place] Comment on above: Performed By: #### T SH, CBC, ADIFF, ANEU, ABOG, ANSG ####[place] [address]#### RPR, RUBIS, HBSAG, VARIS ####[place] [address] MCHC mass conc (RBC) 34.2 G/dL Normal 33.0-37.0 [facility] Comment on above: Performed By: #### T SH, CBC, ADIFF, ANEU, ABOG, ANSG ####[place] [address]#### RPR, RUBIS, HBSAG, VARIS ####[place] [address] MCV 91.5 fL Normal 80.0-94.0 [facility] ([place] Comment on above: Performed By: #### T SH, CBC, ADIFF, ANEU, ABOG, ANSG ####[place] [address]#### RPR, RUBIS, HBSAG, VARIS ####[place] [address] Platelet mean volume (PMV) 8.6 fL Normal 7.4-10.4 [facility] ([place] Comment on above: Performed By: #### T SH, CBC, ADIFF, ANEU, ABOG, ANSG ####[place] [address]#### RPR, RUBIS, HBSAG, VARIS ####[place] [address] Platelets 217 10 3/mcL Normal 130-400 [facility] ([place] Comment on above: Performed By: #### T SH, CBC, ADIFF, ANEU, ABOG, ANSG ####[place] [address]#### RPR, RUBIS, HBSAG, VARIS ####[place] [address] WBC (Leukocytes) 12.40 10 3/mcL High 4.60-10.80 [facility] [place] Comment on above: Performed By: #### T SH, CBC, ADIFF, ANEU, ABOG, ANSG ####[place] [address]#### RPR, RUBIS, HBSAG, VARIS ####[place] [address] Gel ABOon 10-11-2017 ABO/Rh Interp Positive Invalid Interpretation Code [facility] ([place] Comment on above: Performed By: #### T SH, CBC, ADIFF, ANEU, ABOG, ANSG ####[place] [address]#### RPR, RUBIS, HBSAG, VARIS ####[place] [address] Gel ABSon 10-11-2017 Antibody Screen Gel Negative Normal [facility] ([place]) Comment on above: Performed By: #### T SH, CBC, ADIFF, ANEU, ABOG, ANSG ####[address] [place], [place] [address]#### RPR, RUBIS, HBSAG, VARIS ####[place] [id number] [address] [place], [place] [id number] TSHon 10-11-2017 Thyroid stimulating hormone (TSH) 1.15 mcIU/mL Normal 0.27-4.20 [facility] ([place]) Comment on above: Performed By: #### T SH, CBC, ADIFF, ANEU, ABOG, ANSG ####[address] [place], [place] [address]#### RPR, RUBIS, HBSAG, VARIS ####[place] [id number] [address] [place], [place] [id number] Vital Signs Date Time Vital Sign Value Performing Clinician Shari warner 02-17-2025 11:54-0400 Body height 167.[address] Samantha Sanders MD Work Phone: [facility] 02-17-2025 11:48-0400 Body mass index (BMI) [Ratio] 23.3 kg/m2 Dr. Samantha Sanders MD Work Phone: [facility] 02-17-2025 11:48-0400 Body weight 65.[address] Samantha Sanders MD Work Phone: [facility] 02-17-2025 11:48-0400 Diastolic blood pressure 70 mm[Hg] Dr. Samantha Sanders MD Work Phone: [facility] 02-17-2025 11:48-0400 Systolic blood pressure 114 mm[Hg] Dr. Samantha Sanders MD Work Phone: [facility] 02-13-2025 10:30-0400 Diastolic blood pressure 56 mm[Hg] Tali Cline MD Work Phone: [facility] 02-13-2025 10:30-0400 Heart rate 90 /min Tali Cline MD Work Phone: [facility] 02-13-2025 10:30-0400 SaO2% (BldA) [Mass fraction] 100 % Tali Cline MD Work Phone: [facility] 02-13-2025 10:30-0400 Systolic blood pressure 110 mm[Hg] Tali Cline MD Work Phone: [facility] 02-13-2025 04:04-0400 Body temperature 98.2 [degF] Tali Cline MD Work Phone: [facility] 02-13-2025 04:04-0400 Respiratory rate 18 /min Tali Cline MD Work Phone: [facility] 02-12-2025 11:34-0400 Body height 167.[address] Samantha Sanders MD Work Phone: [phone] [place] [address] 02-12-2025 11:34-0400 Body mass index (BMI) [Ratio] 22.7 kg/m2 Dr. Samantha Sanders MD Work Phone: [facility] 02-12-2025 11:34-0400 Body weight 63.[address] Samantha Sanders MD Work Phone: [facility] 02-12-2025 11:23-0400 Diastolic blood pressure 66 mm[Hg] Dr. Saamntha Sanders MD Work Phone: [facility] 02-12-2025 11:23-0400 Heart rate 100 /min Dr. Samantha Sanders MD Work Phone: [facility] 02-12-2025 11:23-0400 Systolic blood pressure 114 mm[Hg] Dr. Samantha Sanders MD Work Phone: [facility] 02-11-2025 12:49-0400 Body height 168.[address] Samantha Sanders MD Work Phone: [facility] 02-11-2025 12:49-0400 Body mass index (BMI) [Ratio] 22.4 kg/m2 Dr. Samantha Sanders MD Work Phone: [facility] 02-11-2025 12:49-0400 Body weight 63.[address] Samantha Sanders MD Work Phone: [facility] 02-11-2025 12:49-0400 Diastolic blood pressure 66 mm[Hg] Dr. Samantha Sanders MD Work Phone: [facility] 02-11-2025 12:49-0400 Systolic blood pressure 102 mm[Hg] Dr. Samantha Sanders MD Work Phone: [facility] Encounters Encounter Date Encounter Type Care Provider Facility Start: 02-17-2025 End: 02-17-[address] Samantha Sanders MD -[facility] Work Phone: Start: 02-17-2025 End: 02-17-[address] Samantha Sanders MD Work Phone: -[facility] Start: 02-12-2025 End: 02-13-2025 Evaluation and management of inpatient Tali Cline MD Work Phone: [facility] [address] Comment on above: Indication for care in labor or delivery (Primary Dx); Vaginal bleeding in , second trimester Start: 02-12-2025 ambulatory Samantha Mccarthy lity:[facility] Start: 02-12-2025 Non-patient / Non-visit Dr. Samantha Sanders MD -[facility] Start: 02-12-2025 End: 02-12-[address] Samantha Sanders MD Work Phone: [facility] Start: 02-12-2025 End: 02-12-[address] Samantha Sanders MD -[facility] Work Phone: Start: 02-11-[address] Samantha Sanders MD -[facility] Start: 02-11-2025 ambulatory Samantha Mccarthy lity:[facility] Start: 02-11-2025 End: 02-11-[address] Samantha Sanders MD -[facility] Work Phone: Start: 02-11-2025 End: 02-11-[address] Samantha Sanders MD Work Phone: -[facility] Start: 10-11-2017 End: 10-12-2017 Ambulatory CARLA BARRIOS Facility:[facility] Procedures Date Procedure Procedure Detail Performing Clinician Start: 02-13-2025 Us preg uterus after 1st trimest 06/05 gestation Nirali Schlieper DO Work Phone: Start: 02-13-2025 Adult depression scr eening assessment Tali Cline MD Work Phone: Start: 02-12-2025 URINE HOLD CUP Nirali S chlieper DO Work Phone: Start: 02-12-2025 Iaad ia hepatitis b surface antigen Nirali Schlieper DO Work Phone: Start: 02-12-2025 Antibody screen TUNDE DOMINGUEZ Comment on above: Order Comment: HOLD. Specimen is valid for 3 days - nurse to verify valid specimen Performed By: #### L [id number], [id number], [id number] #### Logistics Analyst: HARIS SIMENTAL ([id number]) [address] Start: 02-12-2025 ABO and Rh group [Ty pe] in Blood by Confirmatory method Nirali Schlieper DO Work Phone: Start: 02-12-2025 Blood count complete automated Nirali Schlieper DO Work Phone: Start: 02-12-2025 End: 02-12-2025 Blood typing serologic abo Nirali Schlie per DO Work Phone: Start: 02-12-2025 Fibrinogen assay, quantitative Dr. Samantha Sanders MD Work Phone: Start: 02-11-[address] Fidelia Sanders MD Work Phone: Start: 02-11-2025 Fibrinogen assay, quantitative Dr. Samantha Sanders MD Work Phone: Start: 02-11-2025 Hepatitis C antibody measurement Dr. Samantha Sanders MD Work Phone: Comment on above: Reactive: Presumptiv e evidence of antibodies to HCV. Follow CDC recommendations for supplemental testing.Non-Reactive: Antibodies to HCV were not detected; does not exclude the possibility of exposure to HCVReactive Results are presumptive evidence of antibodies to HCV. Follow CDC recommendations for supplemental testing.Order confirmation testing: HCV Quant by PCR testing - HCVPCR #[id number] Non Reactive: < 0.8 Equivocal: >/= 0.8 to < 1.0 Reactive: >/= 1.0The CDC requires that a reactive/equivocal HCV antibody result be sent out for confirmation. HCV Quant by PCR testing. Start: 02-11-[address] Samantha Sanders MD Work Phone: Comment on above: Antibody Result: Int erpretationNon-Reactive: Non- ImmuneReactive: ImmuneThe following results were obtained with the [employer] Rubella IgG assay. Results from assays of other manufacturers cannot be used interchangeably. Start: 02-11-2025 Serologic test for syphilis Dr. Samantha Sanders MD Work Phone: Plan of Treatment Date Care Activity Detail Author Start: 2044 Zoster Vaccines (1 of 2) Zoste r Vaccines (1 of 2) [facility] Start: 02-13-2026 Depression Screening Depression Scre ening [facility] Start: 05-27-2025 RSV Immunization for Adults (1 - Risk 1-dose series) RSV Immunization for Adults (1 - Risk 1-dose series) [facility] Start: 02-12-2025 Patient discharge [facility] Start: 02-11-2025 Bacteria identified in Urine by Culture Urine Culture [facility] Start: 02-11-2025 CBC W Auto Different ial panel - Blood [facility] Start: 02-11-2025 Fibrinogen assay, quantitative [facility] Start: 02-11-2025 Hepatitis C antibody measurement [facility] Start: 02-11-2025 Partial thromboplast in time, activated [facility] Start: 02-11-2025 Prothrombin time [place] Start: 02-11-2025 Rubella IgG measurement [facility] Start: 02-11-2025 Serologic test for syphilis [facility] Start: 02-11-2025 [facility] Start: 02-11-2025 [facility] Start: 02-03-2025 COVID-19 Vaccine ( season) COVID-19 Vaccine ( season) [facility] Start: 02-03-2025 Influenza vaccination Influenza Vacc ine (#1) [facility] Start: 2024 Screening for malign ant neoplasm of cervix [facility] Start: 10-29-2015 Screening for malign ant neoplasm of cervix Pap Smear [facility] Start: 2013 DTaP/Tdap/Td Vaccine s (1 - Tdap) DTaP/Tdap/Td Vaccines (1 - Tdap) [facility] Start: 2013 Hepatitis B Vaccines (1 of 3 - 19+ 3-dose series) Hepatitis B Vaccines (1 of 3 - 19+ 3-dose series) [facility] Start: 10-29-2007 Varicella vaccination Varicell a Vaccines (1 of 2 - 13+ 2-dose series) [facility] Start: 10-29-1995 MMR Vaccines (1 of 1 - Standard series) MMR Vaccines (1 of 1 - Standard series) [facility] End: 02-12-2025 Bacteria identified in Urine by Culture [facility] Work Phone: Comment on above: Once (Lab) for 1 Occ urrences starting 02/12/2025 until 02/12/2025 Once for 1 Occurrenc es starting 02/12/2025 until 02/12/2025 Chlamydia deoxyribon ucleic acid detection [facility] Erythrocyte mean corpuscular volume determination [facility] Hematocrit [Volume Fraction] of Blood [facility] Hemoglobin [Mass/vol ume] in Blood [facility] Hepatitis B virus vidal rface Ag [Presence] in Serum [facility] INR in Blood by Coagulation assay [facility] Leukocytes [#/volume ] in Blood [facility] Mean corpuscular hemoglobin concentration determination [facility] Mean corpuscular hemoglobin determination [facility] Neutrophil count [facility] Neutrophil percent differential count [facility] Patient Education Kick Counts ED False Labor OB Triage: Return to Hospital or Notify Physician if you Experience: [facility] Work Phone: Platelets [#/volume] in Blood [facility] Red blood cell count [facility] Red cell distributio n width determination [facility] Urine culture [facility] Immunizations Immunization Date Immunization Notes Care Provider Jaime vasquez NEGATED: Highlighted row has not occurred!02-12-2025 influenza, injectable, madin mely canine kidney, preservative free Tali Cline MD Work Phone: [facility] Comment on above: Deferred: Patient Re fused Payers Date Payer Category Payer Self-pay 2025 Unknown [id number] 2024 Commercial Managed C are [facility] [id number] 2024 Unknown [id number] 2017 Unknown [id number] Unknown [id number] Unknown [id number] Unknown [id number] Unknown [id number] Unknown [id number] Social History Date Type Detail Facility Start: 02-11-2025 End: 02-12-2025 Tobacco smoking status NHIS Never smoked tobacco (finding) [facility] Start: 1995 Sex Assigned At Female [facility] Start: 02-12-2025 Tobacco use and exposure Smoke less tobacco non-user [facility] Start: 02-12-2025 Alcoholic beverage intake Ex-drinker (finding) [facility] Start: 02-12-2025 End: 02-13-2025 History of Social function [facility] Start: 02-12-2025 End: 02-13-2025 Humiliation, Afraid, Rape, and Kick questionnaire [HARK] [facility] Within the last year , have you been afraid of your partner or ex-partner? Patient unable to answer [facility] In the past 12 month s, was there a time when you were not able to pay the mortgage or rent on time? No [facility] Start: 10-29-2024 [facility] Start: 1995 Sex assigned at Not on file [facility] Start: 02-12-2025 Sex Female (finding) [facility] Functional Status Date Assessment Result Facility 02-13-2025 Patient Health Questionnaire 2 item (PHQ- 2) [Reported] [facility] Clinical Notes 02-11-2025 to 02-13-2025 Laura Tillman RN - 02/13/2025 3:15 PM Delisa Tillman RN - 02/13/2025 3:15 PM EDTCare Coordination - Keily Todd RN - 02/13/2025 3:12 PM Gisella Mays DO - 02/13/2025 3:05 PM EDT Note Date & Type Note Facility 02-13-2025 Note Discharge teaching r eviewed with patient. Consent to treat signed from admission. All questions answered at this time. Wheelchair provided to spouse to transport patient to personal vehicle. [facility] 02-13-2025 Nurse Note Discharge teaching reviewed with patient. Consent to treat signed from admission. All questions answered at this time. Wheelchair provided to spouse to transport patient to personal vehicle. [facility] 02-13-2025 Nurse Note Discharge teaching reviewed with patient. Consent to treat signed from admission. All questions answered at this time. Wheelchair provided to spouse to transport patient to personal vehicle. documented in this encounter [facility] 02-13-2025 Progress note Formatting of t his note might be different from the original. Date: 02/13/2025 Name: Lina Gilbert : 1995 [facility] Patient Information Primary Caregiver: Self Accompanied by/Relationship: S/O;Family Marital Status: Support System: SO/Family Shinto/Cultural Factors: Activities of Daily Living Communication: See demographics Living Arrangements Current Residence: Private residence Lives With: S/O; Family Support System: S/O; Family Income Information Income Source: Not Employed Financial Resource Strain How hard is it for you to pay for the very basics like food, housing, medical care and heating? N/A Housing Stability In the last 12 months, was there a time when you did not have a steady place to sleep or slept in a longterm (including now)? No Transportation Needs Has the lack of Transportation kept you from medical appointments? No In the past 12 months, has the lack of transportation kept you from meetings, work, or from getting things needed for daily living? No Food Insecurity Within the past 12 months, have you worried that your food would run out before you got the money to buy more? No Stress Do you feel stress - tense, restless, nervous, or anxious, or unable to sleep at night because you mind is troubled all the time? Mood stable Referral To Financial Resources: N/A Community Resources: PNU folder given upon admission to PNU Unit Social Work: N/A CLP: N/A Medical Information 29 year old admitted for vaginal bleeding at 17/1 weeks. 5 Para 4. Consults MFM. Concern for abruption Discharge Plan Home or Community Resources: PNU Admission folder given upon admission to unit Equipment: N/A Education Given: PNU admit folder and see Education Tab Additional Information: N/A Mental Health Services: N/A Developmental Delay: N/A Children's Services: N/A [facility] 02-13-2025 Miscellaneous Notes Date: 02/13/2025 Name: Lina Gilbert : 1995 [facility] Patient Information Primary Caregiver: Self Accompanied by/Relationship: S/O;Family Marital Status: Support System: SO/Family Shinto/Cultural Factors: Activities of Daily Living Communication: See demographics Living Arrangements Current Residence: Private residence Lives With: S/O; Family Support System: S/O; Family Income Information Income Source: Not Employed Financial Resource Strain How hard is it for you to pay for the very basics like food, housing, medical care and heating? N/A Housing Stability In the last 12 months, was there a time when you did not have a steady place to sleep or slept in a longterm (including now)? No Transportation Needs Has the lack of Transportation kept you from medical appointments? No In the past 12 months, has the lack of transportation kept you from meetings, work, or from getting things needed for daily living? No Food Insecurity Within the past 12 months, have you worried that your food would run out before you got the money to buy more? No Stress Do you feel stress - tense, restless, nervous, or anxious, or unable to sleep at night because you mind is troubled all the time? Mood stable Referral To Financial Resources: N/A Community Resources: PNU folder given upon admission to PNU Unit Social Work: N/A CLP: N/A Medical Information 29 year old admitted for vaginal bleeding at 17/1 weeks. 5 Para 4. Consults [facility]. Concern for abruption Discharge Plan Home or Community Resources: PNU Admission folder given upon admission to unit Equipment: N/A Education Given: PNU admit folder and see Education Tab Additional Information: N/A Mental Health Services: N/A Developmental Delay: N/A Children's Services: N/A documented in this encounter [facility] 02-13-2025 Note Department of Obstet rics and Gynecology [facility] Discharge Summary Admission on 02/12/2025 3:30 PM Lina Gilbert is a 29 y.o. at 17w1d who presented to Labor and Delivery for vaginal bleeding and concern for abruption. Abruption labs obtained on admission were within normal limits. TVUS was obtained on admission and showed posterior placenta. A placenta abruption was appreciated. At the inferior, extending over the cervical OS, there was a collection of blood measuring 5.1 x 2.1 x .8cm. At the superior edge of the placenta, a separate area of abruption was noted measuring 3.9 x 3.5 x 1.1cm. Transvaginal cervical length was normal, 4.1 cm. The visualized anatomy appeared normal, however follow up ultrasound will have to be performed for remaining anatomy that has not been visualized. These findings were communicated with the patient. The patient has been instructed to follow up with her primary OBGYN for continued care. Return precautions were reviewed. She was deemed stable for discharge. Meds: Medication List START taking these medications acetaminophen 325 MG tablet Commonly known as: Tylenol Take 2 tablets (650 mg) by mouth every 4 hours as needed for mild pain (1-3) (Fever GREATER than 100.5 F (38 C)) for up to 10 days. ondansetron ODT 4 MG disintegrating tablet Commonly known as: Zofran-ODT Take 1 tablet (4 mg) by mouth every 8 hours as needed for nausea or vomiting for up to 7 days. 27-1 MG tablet Take 1 tablet by mouth daily. Start taking on: February 14, 2025 Where to Get Your Medications These medications were sent to [facility] [address] [place] [address] 1996 [place] [id number] acetaminophen 325 MG tablet ondansetron ODT 4 MG disintegrating tablet 27-1 MG tablet Discharge to: Home Discharge date: 02/13/2025 Discharge Dx: Segmental Placental Abruption, Vaginal Bleeding Follow up appointment with your doctor/draw press operator - Keep next scheduled appointment Activity - Normal Activity Call your doctor/draw press operator if you have: - leaking fluid - vaginal bleeding - regular contractions: More than 6 contractions in one hour - decreased movement - worsening abdominal (belly) pain - headache, blurry vision, increased swelling, upper abdominal pain Yvonne Mays DO 02/13/2025 [facility] 02-13-2025 Hospital course Narrative Images from the original note were not included. Department of Obstetrics and Gynecology [facility] Discharge Summary Admission on 02/12/2025 3:30 PM Lina Gilbert is a 29 y.o. at 17w1d who presented to Labor and Delivery for vaginal bleeding and concern for abruption. Abruption labs obtained on admission were within normal limits. TVUS was obtained on admission and showed posterior placenta. A placenta abruption was appreciated. At the inferior, extending over the cervical OS, there was a collection of blood measuring 5.1 x 2.1 x .8cm. At the superior edge of the placenta, a separate area of abruption was noted measuring 3.9 x 3.5 x 1.1cm. Transvaginal cervical length was normal, 4.1 cm. The visualized anatomy appeared normal, however follow up ultrasound will have to be performed for remaining anatomy that has not been visualized. These findings were communicated with the patient. The patient has been instructed to follow up with her primary OBGYN for continued care. Return precautions were reviewed. She was deemed stable for discharge. Meds: Medication List START taking these medications acetaminophen 325 MG tablet Commonly known as: Tylenol Take 2 tablets (650 mg) by mouth every 4 hours as needed for mild pain (1-3) (Fever GREATER than 100.5 F (38 C)) for up to 10 days. ondansetron ODT 4 MG disintegrating tablet Commonly known as: Zofran-ODT Take 1 tablet (4 mg) by mouth every 8 hours as needed for nausea or vomiting for up to 7 days. 27-1 MG tablet Take 1 tablet by mouth daily. Start taking on: February 14, 2025 Where to Get Your Medications These medications were sent to [facility] [address] [place] [address] acetaminophen 325 MG tablet ondansetron ODT 4 MG disintegrating tablet 27-1 MG tablet Discharge to: Home Discharge date: 02/13/2025 Discharge Dx: Segmental Placental Abruption, Vaginal Bleeding Follow up appointment with your doctor/draw press operator - Keep next scheduled appointment Activity - Normal Activity Call your doctor/draw press operator if you have: - leaking fluid - vaginal bleeding - regular contractions: More than 6 contractions in one hour - decreased movement - worsening abdominal (belly) pain - headache, blurry vision, increased swelling, upper abdominal pain Yvonne Mays DO 02/13/2025 Cosigned by Tunde Dominguez MD at 02/13/2025 4:00 PM EDT documented in this encounter [facility] 02-13-2025 Note An early anatomic ev aluation was performed due to placental abruption. 1. Fiore live intrauterine at 17w 2d. 2. Normal anatomy, with limitations as noted above. 3. biometry consistent with clinically established RADHA. 4. Posterior placenta. A placenta abruption is appreciated. At the inferior, extending over the cervical OS, there is a collection of blood measuring 5.1 x 2.1 x .8cm. At the superior edge of the placenta, a separate area of abruption is noted measuring 3.9 x 3.5 x 1.1cm 5. Transvaginal cervical length is normal, 4.1 cm. RECOMMENDATIONS: 1. Plan per inpatient team. 2. Follow-up as clinically indicated. Ultrasound is not diagnostic of chromosomal aneuploidy and does not detect all subtle defects. Normal ultrasound findings do not guarantee normal outcomes. [facility] 02-13-2025 Note An early anatomic ev aluation was performed due to placental abruption. 1. Fiore live intrauterine at 17w 2d. 2. Normal anatomy, with limitations as noted above. 3. biometry consistent with clinically established RADHA. 4. Posterior placenta. A placenta abruption is appreciated. At the inferior, extending over the cervical OS, there is a collection of blood measuring 5.1 x 2.1 x .8cm. At the superior edge of the placenta, a separate area of abruption is noted measuring 3.9 x 3.5 x 1.1cm 5. Transvaginal cervical length is normal, 4.1 cm. RECOMMENDATIONS: 1. Plan per inpatient team. 2. Follow-up as clinically indicated. Ultrasound is not diagnostic of chromosomal aneuploidy and does not detect all subtle defects. Normal ultrasound findings do not guarantee normal outcomes. [facility] 02-13-2025 History of Presen t illness Narrative Images from the original note were not included. PHYSICAL THERAPY [facility] Name/MRN: Lina Gilbert ([id number]) Date: 02/13/2025 PT orders received per Naeem activity/mobility score. Patient currently with Naeem activity/mobility score greater than 2. Per therapy services guidelines, will discharge PT orders. Please place regular PT eval/treat orders if deemed appropriate. Carole Cole PT Images from the original note were not included. Maternal Medicine Service Resident Progress Note 02/13/2025 6:33 AM 02/12/2025 Hospital Day: 2 Lina Gilbert, 29 y.o. 17w2d Patient has been seen and examined. Pt complains of some bleeding overnight. She denies any leakage of fluid or pain. Patient states that primary OB told patient she has a partial abruption seen in prior imaging. Vitals: 02/12/25 1547 02/12/25 2221 02/13/25 0037 02/13/25 0404 BP: 110/63 98/60 (!) 99/56 (!) 104/52 Pulse: 97 90 83 85 Resp: 18 16 16 18 Temp: 36.8 C (98.2 F) 36.6 C (97.8 F) 36.6 C (97.9 F) 36.8 C (98.2 F) TempSrc: Oral Oral Oral Oral SpO2: 98% 100% 100% 100% Physical Exam: Gen: NAD HEENT: Normocephalic, Atraumatic, EOMI, MMM Resp: no increased work of breathing Card: RR Abd: soft, gravid, NTND, no rebound, no guarding. Ext: No LE edema, no calf tenderness or swelling Medications: Current Medications[1] Assessment/Plan: Lina Gilbert is a 29 y.o. female 17w2d Vaginal Bleeding Concern of Abruption - admitted for vaginal bleeding with concern for abruption - reports some bleeding overnight this morning on rounds - abdominal exam benign - afebrile, hypotensive, HR wnl - received 1L IVF overnight per patient request of feeling dehydrated - reports posterior placenta with known partial abruptions per Primary OB - Fibrinogen and coags wnl on admission - TVUS today - continue to monitor closely Limited Care - dated by LMP - follows with Travel Freight And Passenger Agent but establish care with [facility] due to bleeding - labs collected on admission, awaiting results IUP @ 17w2d - Dating by LMP - variable - Monitoring:FHT daily - Diet:General - BMZ Deferred Further plan pending d/w attending. Yvonne Mays DO 02/13/2025, 6:33 AM [1] Current Facility-Administered Medications Medication Dose Route Frequency Provider Last Rate Last Admin acetaminophen (Tylenol) tablet 650 mg 650 mg Oral q4h PRN Nirali Schlieper, DO influenza vaccine tiss-cult subunt (Flucelvax) STANDARD-DOSE injection 0.5 mL 0.5 mL IntraMUSCular Once Niralicandace Diazeper, DO ondansetron ODT (Zofran-ODT) disintegrating tablet 4 mg 4 mg Oral q8h PRN Nirali Schlieper, DO Or ondansetron (Zofran) injection 4 mg 4 mg IntraVENous q6h PRN Nirali Schlieper, DO vitamin tablet 1 tablet Oral Daily Nirali Schlieper, DO sodium chloride 0.9 % infusion 5-250 mL/hr IntraVENous PRN Nirali Schlieper, DO sodium chloride 0.9% (NS) flush 10 mL 10 mL IntraVENous 2 times per day Niralikeith Diazeper, DO 10 mL at 02/12/252114 sodium chloride 0.9% (NS) flush 10 mL 10 mL IntraVENous PRN Nirali Joeeper, Cosigned by Tunde Dominguez MD at 02/13/2025 2:54 PM EDT Associated attestation - Tunde Dominguez MD - 02/13/2025 2:54 PM EDT 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 Case was discussed at the time of admission. Please see my separate attestation from the admission history and physical examination. John [facility]ACOG Maternal- Medicine Department of Obstetrics and Gynecology OB Emergency Department Note CHIEF CONCERN: Concern for placental abruption HISTORY OF PRESENT ILLNESS: The patient is a 29 y.o. at 17w1d who presents with the above chief concern. Patient presents from private office for US. Per patient, this is her fifth , reports 4 prior term vaginal deliveries at home. She is dated by her LMP. She notes she has been having intermittent episodes of bleeding this , notes some times it is heavy like a period with passage of clots. Reports she was told she has a subchorionic hematoma earlier in this . She notes she was seen in the office today for concerns for bleeding. She denies current bleeding. She denies pain at this time. She denies current medical history or surgeries. Estimated Due Date: Estimated Date of Delivery: 07/22/25 CARE: Complicated by: Limited care, vaginal bleeding DETAILED OB HISTORY: OB History Para Term AB Living 5 4 4 4 SAB IAB Ectopic Multiple Live Births # Outcome Date GA Lbr Jarek/2nd Weight Sex Type Anes PTL Lv 5 Current 4 Term 3 Term 2 Term 1 Term PAST MEDICAL HISTORY: Medical History[1] PAST SURGICAL HISTORY: Surgical History[2] SOCIAL HISTORY: None MEDICATIONS: Prior to Admission medications Not on File REVIEW OF SYSTEMS: Pertinent items are noted in HPI. APPEARANCE: Pain: No PHYSICAL EXAM: Vital Signs: VS wnl-reviewed/Respirations normal effort Vitals: 02/12/25 1547 BP: 110/63 Pulse: 97 Resp: 18 SpO2: 98% General: NAD alert and oriented Heart: RR Lungs: No resp distress Abdomen: soft, NT, ND, no rebound/guarding Uterus: gravid/non-tender Speculum Exam: patient declines Membranes: Intact Cervix: defer LE Edema: trace Psych: normal mood and affect RESULTS: heart rate: 160 on BSUS TRIAGE COURSE: FHR 160 on BSUS. VSS. Patient comfortable appearing. Recommended pelvic exam to assess bleeding, patient declines, states she is currently not bleeding. Recommended admission for formal US in am. Coags ordered. labs ordered. ESSION: Vaginal Bleeding Pain assessment and plan: None Patient seen and evaluated and plan discussed with in house Triage Attending Dr. Cooper CRIMINAL INTELLIGENCE ANALYST PROVIDER: Dr. Dominguez DISPOSITION: Admit to Antepartum (PNU) [1] History reviewed. No pertinent past medical history. [2] Past Surgical History: Procedure Laterality Date TOOTH EXTRACTION Cosigned by Kacy Cooper MD at 02/12/2025 6:05 PM EDT documented in this encounter [facility] 02-12-2025 History and physical note Department of Maternal Medicine History and Physical CHIEF COMPLAINT: Vaginal Bleeding HISTORY OF PRESENT ILLNESS: The patient is a 29 y.o. female at 17w1d. OB History 5 Para 4 Term 4 AB Living 4 SAB IAB Ectopic Multiple Live Births Patient presents with a chief complaint as above and is being admitted for vaginal bleeding Patient presents from private office for US. Per patient, this is her fifth , reports 4 prior term vaginal deliveries at home. She is dated by her LMP. She notes she has been having intermittent episodes of bleeding this , notes some times it is heavy like a period with passage of clots. Reports she was told she has a subchorionic hematoma earlier in this . She notes she was seen in the office today for concerns for bleeding. She denies current bleeding. She denies pain at this time. She denies current medical history or surgeries. Transport: No Prior Hospitalizations: No Estimated Due Date: Estimated Date of Delivery: 07/22/25 CARE: Complications: See below PAST OB HISTORY: OB History 5 Para 4 Term 4 AB Living 4 SAB IAB Ectopic Multiple Live Births Detailed OB History G1 Term G2 Term G3 Term G4 Term G5 Current Past Medical History: Medical History[1] Past Surgical History: Surgical History[2] Allergies: Patient has no known allergies. Social History: Social History Socioeconomic History Marital status: Spouse name: Not on file Number of children: Not on file Years of education: Not on file Highest education level: Not on file Occupational History Not on file Tobacco Use Smoking status: Never Smokeless tobacco: Never Substance and Sexual Activity Alcohol use: Not Currently Drug use: Never Sexual activity: Not on file Other Topics Concern Not on file Social History Narrative Not on file Social Drivers of Health Financial Resource Strain: Not on file Food Insecurity: Not on file Transportation Needs: Not on file Physical Activity: Not on file Stress: Not on file Social Connections: Not on file Intimate Partner Violence: Not on file Housing Stability: Not on file Family History: Family History[3] Medications Prior to Admission: Prescriptions Prior to Admission[4] REVIEW OF SYSTEMS: Review of Systems Constitutional: Negative. HENT: Positive for congestion. Respiratory: Negative. Cardiovascular: Negative. Gastrointestinal: Negative. Genitourinary: Positive for vaginal bleeding. Musculoskeletal: Negative. Neurological: Negative. Labs: CBC: No results found for: WBC, RBC, HGB, HCT, MCV, MCH, MCHC, RDW, PLT, MPV PHYSICAL EXAM: Vitals: 02/12/25 1547 BP: 110/63 Pulse: 97 Resp: 18 SpO2: 98% General appearance: awake, alert, cooperative, no apparent distress, and appears stated age Neurologic: Awake, alert, oriented to name, place and time. Lungs: No increased work of breathing, good air exchange Abdomen: Soft, non tender, gravid, consistent with her gestational age Sterile Speculum Exam: Membranes: Intact HSV Lesions: not applicable Cervix: defer Contraction frequency: none ASSESSMENT AND PLAN: LABOR DELIVERY ??? SCD's ONLY (labor through ambulation) SCD's PLUS Prophylactic Anticoagulation until discharge SCD's PLUS Prophylactic Anticoagulation for 6 weeks SCD's PLUS Therapeutic Anticoagulation for 6 weeks Vaginal Delivery [] BMI >= 40 kg/m2 Delivery All patients Vaginal Delivery [] BMI >= 40 kg/m2 AND [] Antepartum hospitalization >= 72 hours within the past month Delivery 1 Major Risk Factor: [] BMI >= 35 kg/m2 [] Low Risk Thrombophilia [] PPH+RBCs, IR, or operation [] Infection+Antibiotics [] Antepartum hospitalization >= 72 hours within the past month [] PMH: Sickle Cell, SLE, Cardiac Dz, Active IBD, Active Cancer, Nephrotic Syndrome OR 2 Minor Risk Factors: [] Multiple gestation [] Age > 40 [] PPH >= 1,000cc [] (+)FMH of VTE [] Smoker [] Preeclampsia [] BMI >= 40 kg/m2 AND [] Low Risk Thrombophilia OR ANY OF THE FOLLOWING: [] High Risk Thrombophilia without prior VTE [] Low Risk Thrombophilia with (+)FMH of VTE [] Any single prior VTE ANY OF THE FOLLOWING: [] Already on LMWH/UFH [] Multiple prior VTE [] High Risk Thrombophilia with prior VTE Low Risk Thrombophilia: FVL (heterozygous), Prothrombin (heterozygous), Protein C, Protein S High Risk Thrombophilia: FVL (homozygous), Prothrombin (homozygous), FVL+Prothrombin (heterozygous), Antithrombin III, APLS VTE Prophylaxis: Not Indicated Admission: Admit to Antepartum (PNU) FHR: FHR 160 on BSUS, heart monitoring daily Labs: GBS not obtained GC/CT not obtained Urine collected FFN collected Type&Screen collected Serum Labs CBC, CMP. Coags Consults: MFM Imaging: Indicated/ordered Diet: NPO Testing: TBD Timing and Route of Delivery: TBD Medications: Neuroprotection Not indicated Tocolysis Not indicated Antibiotics Not indicated Steroids: Betamethasone - not indicated Vaginal Bleeding Concern for Abruption - Patient presents from office with concern for abruption - Reports weeks of intermittent heavy bleeding - Declines bleeding on current presentation - Abdominal exam unremarkable - VSS - Reports US that noted posterior placenta - Coags and CBC ordered - NPO at this time - TVUS ordered for am to assess bleeding Limited Care - Dated by LMP - Following with Travel Freight And Passenger Agent - Established care in setting of bleeding - OB records not available, labs obtained on admission IUP @ 17w1d - Dating by LMP - Variable - Monitoring: FHT daily - Diet: NPOE - BMZ deferred Discussed with Dr Dominguez, who agrees with plan. Nirali Navarro DO 02/12/2025, 5:33 PM Cc: Tunde Dominguez, * [1] History reviewed. No pertinent past medical history. [2] Past Surgical History: Procedure Laterality Date TOOTH EXTRACTION [3] No family history on file. [4] No medications prior to admission. Cosigned by Tunde Dominguez MD at 02/13/2025 2:53 PM EDT Associated attestation - Tunde Dominguez MD - 02/13/2025 2:53 PM EDT Hospital Care (Independent): I independently saw and evaluated the patient. I agree with the findings and plan of care as documented in the resident's note. Lina Gilbert is a 29 y.o. at 17w2d who is admitted for evaluation of vaginal bleeding. Patient reports that she has had ongoing bleeding throughout this . Initially, it was thought this was related to a subchorionic hemorrhage that was noted early in the . However, the patient reports her bleeding has been worsening in the recent past. When she went away on vacation to [place], that was her first significant episode of vaginal bleeding. She was seen locally in the emergency department in [place] and was told she had a normal ultrasound. I believe this was approximately 2 to 2-1/2 weeks ago. She was seen locally by her community health advocate and was also noted to have a significant amount of vaginal bleeding for . This was also accompanied by some uterine contractions the patient describes this transition like pain. This is waxing and waning and not present at this moment. She was recently referred to one of our general obstetricians for evaluation on February 11 and was noted to have a probable placental abruption. She presented here for evaluation after she continued to have some bleeding at home. This morning, the patient reports that her bleeding has subsided and is essentially absent on rounds today. She is not currently feeling any contractions or leakage of fluid. BP (!) 110/56 Pulse 90 Temp 36.8 C (98.2 F) (Oral) Resp 18 LMP 10/15/2024 SpO2 100% No acute distress, with Speaking in complete sentences; normal respiratory effort Abdomen nontender during ultrasound Ultrasound today is notable for normal early appearing anatomy. There is a placental abruption that is appreciated on the ultrasound. At the superior margin of the placenta, there is a 4.5 cm blood collection. At the inferior margin there is a 5 cm collection of fluid. The cervix is closed and of normal length, greater than 4 cm. Fibrinogen is 450 Hemoglobin was 12.4 on February 05 Hemoglobin is 12.7 at the time of admission A/P: Placental abruption is the premature separation of the placenta from the decidua. The patient is noted to be 17 weeks gestational age at this time, which is at a nonviable gestational age. Abruption typically presents with vaginal bleeding, abdominal pain, contractions and or non-reassuring heart rate pattern. Not all clinical findings are required for diagnosis and imaging is not necessary or sufficient to diagnose. Risk factors predisposing to placental abruption include maternal trauma, hypertension, substance use disorder, and smoking among others. Talking to the patient, she does not appear to have obvious risk factors for abruption. Placental abruption is associated with maternal and risks, depending on the severity and gestational age. The bleeding in placental abruption is maternal and thus continued abruption can progress to maternal hemorrhage with DIC. Thankfully, this patient clinically appears to be hemodynamically stable. I did discuss with the patient that she is at increased risk for rupture membranes secondary to the bleeding that she has experienced in this . She is noted to be O+, antibody negative. At this time, I have told the patient that my overall prognosis is quite guarded given the bleeding that she is experienced and her early gestational age. I discussed with her it is quite possible that she will go on to have a demise or miscarriage in this case. We had a jojo discussion regarding her options for termination given that she is 17 weeks 2 days. The patient indicates that she would prefer to remain . This is reasonable at this point given that she is hemodynamically stable. I did discuss with her my concern is for maternal wellbeing at this time and that our counseling would necessarily emphasize that until she reaches a viable gestational age. I think the patient is overall stable at this point and does not require hospitalization. Of course, she is likely to experience vaginal bleeding in the future and my hope is that it will be less significant than it was in the past. She was given bleeding precautions and told to present to the nearest location for evaluation, stabilization and potential transfer. I have discussed case with her primary date puller, Dr. Sanders --we will have the patient seen at least weekly with her next appointment with her primary date puller. I am hopeful that we will see the patient in follow-up as an outpatient in 2 weeks we can assess her condition and complete her anatomic evaluation. Certainly, complications in can be emotionally traumatizing. Particularly for someone who anticipated an easy in the setting of 4 prior home births. We have made counseling services available for the patient and her should she desire that in the future. John [facility]OG Maternal- Medicine This documentation was prepared using [employer] voice recognition software. As a result, errors may occur. When identified, these errors have been corrected. While every attempt is made to correct errors during dictation, errors may still exist. Billing Components Chart review and preparation: 20 minutes. Face to face: 60 minutes. Documentation and care coordination: 20 minutes. =-=-=-=-=-=-==-=-=-=-=-=-==-=-= -=-=-=-==-=-=-=-= Total time spent on patient care today: 100 minutes. [facility] 02-12-2025 Note Attestation signed by Tunde Dominguez MD at 02/13/2025 2:53 PM Hospital Care (Independent): I independently saw and evaluated the patient. I agree with the findings and plan of care as documented in the resident's note. Lina Gilbert is a 29 y.o. at 17w2d who is admitted for evaluation of vaginal bleeding. Patient reports that she has had ongoing bleeding throughout this . Initially, it was thought this was related to a subchorionic hemorrhage that was noted early in the . However, the patient reports her bleeding has been worsening in the recent past. When she went away on vacation to [place], that was her first significant episode of vaginal bleeding. She was seen locally in the emergency department in [place] and was told she had a normal ultrasound. I believe this was approximately 2 to 2-1/2 weeks ago. She was seen locally by her community health advocate and was also noted to have a significant amount of vaginal bleeding for . This was also accompanied by some uterine contractions the patient describes this transition like pain. This is waxing and waning and not present at this moment. She was recently referred to one of our general obstetricians for evaluation on February 11 and was noted to have a probable placental abruption. She presented here for evaluation after she continued to have some bleeding at home. This morning, the patient reports that her bleeding has subsided and is essentially absent on rounds today. She is not currently feeling any contractions or leakage of fluid. BP (!) 110/56 Pulse 90 Temp 36.8 ?C (98.2 ?F) (Oral) Resp 18 LMP 10/15/2024 SpO2 100% No acute distress, with Speaking in complete sentences; normal respiratory effort Abdomen nontender during ultrasound Ultrasound today is notable for normal early appearing anatomy. There is a placental abruption that is appreciated on the ultrasound. At the superior margin of the placenta, there is a 4.5 cm blood collection. At the inferior margin there is a 5 cm collection of fluid. The cervix is closed and of normal length, greater than 4 cm. Fibrinogen is 450 Hemoglobin was 12.4 on February 05 Hemoglobin is 12.7 at the time of admission A/P: Placental abruption is the premature separation of the placenta from the decidua. The patient is noted to be 17 weeks gestational age at this time, which is at a nonviable gestational age. Abruption typically presents with vaginal bleeding, abdominal pain, contractions and or non-reassuring heart rate pattern. Not all clinical findings are required for diagnosis and imaging is not necessary or sufficient to diagnose. Risk factors predisposing to placental abruption include maternal trauma, hypertension, substance use disorder, and smoking among others. Talking to the patient, she does not appear to have obvious risk factors for abruption. Placental abruption is associated with maternal and risks, depending on the severity and gestational age. The bleeding in placental abruption is maternal and thus continued abruption can progress to maternal hemorrhage with DIC. Thankfully, this patient clinically appears to be hemodynamically stable. I did discuss with the patient that she is at increased risk for rupture membranes secondary to the bleeding that she has experienced in this . She is noted to be O+, antibody negative. At this time, I have told the patient that my overall prognosis is quite guarded given the bleeding that she is experienced and her early gestational age. I discussed with her it is quite possible that she will go on to have a demise or miscarriage in this case. We had a jojo discussion regarding her options for termination given that she is 17 weeks 2 days. The patient indicates that she would prefer to remain . This is reasonable at this point given that she is hemodynamically stable. I did discuss with her my concern is for maternal wellbeing at this time and that our counseling would necessarily emphasize that until she reaches a viable gestational age. I think the patient is overall stable at this point and does not require hospitalization. Of course, she is likely to experience vaginal bleeding in the future and my hope is that it will be less significant than it was in the past. She was given bleeding precautions and told to present to the nearest location for evaluation, stabilization and potential transfer. I have discussed case with her primary date puller, Dr. Sanders --we will have the patient seen at least weekly with her next appointment with her primary date puller. I am hopeful that we will see the patient in follow-up as an outpatient in 2 weeks we can assess her condition and complete her anatomic evaluation. Certainly, [facility] (more content not included)... [facility] 02-12-2025 History and physical note Department of Maternal Medicine History and Physical CHIEF COMPLAINT: Vaginal Bleeding HISTORY OF PRESENT ILLNESS: The patient is a 29 y.o. female at 17w1d. OB History 5 Para 4 Term 4 AB Living 4 SAB IAB Ectopic Multiple Live Births Patient presents with a chief complaint as above and is being admitted for vaginal bleeding Patient presents from private office for US. Per patient, this is her fifth , reports 4 prior term vaginal deliveries at home. She is dated by her LMP. She notes she has been having intermittent episodes of bleeding this , notes some times it is heavy like a period with passage of clots. Reports she was told she has a subchorionic hematoma earlier in this . She notes she was seen in the office today for concerns for bleeding. She denies current bleeding. She denies pain at this time. She denies current medical history or surgeries. Transport: No Prior Hospitalizations: No Estimated Due Date: Estimated Date of Delivery: 07/22/25 CARE: Complications: See below PAST OB HISTORY: OB History 5 Para 4 Term 4 AB Living 4 SAB IAB Ectopic Multiple Live Births Detailed OB History G1 Term G2 Term G3 Term G4 Term G5 Current Past Medical History: Medical History[1] Past Surgical History: Surgical History[2] Allergies: Patient has no known allergies. Social History: Social History Socioeconomic History Marital status: Spouse name: Not on file Number of children: Not on file Years of education: Not on file Highest education level: Not on file Occupational History Not on file Tobacco Use Smoking status: Never Smokeless tobacco: Never Substance and Sexual Activity Alcohol use: Not Currently Drug use: Never Sexual activity: Not on file Other Topics Concern Not on file Social History Narrative Not on file Social Drivers of Health Financial Resource Strain: Not on file Food Insecurity: Not on file Transportation Needs: Not on file Physical Activity: Not on file Stress: Not on file Social Connections: Not on file Intimate Partner Violence: Not on file Housing Stability: Not on file Family History: Family History[3] Medications Prior to Admission: Prescriptions Prior to Admission[4] REVIEW OF SYSTEMS: Review of Systems Constitutional: Negative. HENT: Positive for congestion. Respiratory: Negative. Cardiovascular: Negative. Gastrointestinal: Negative. Genitourinary: Positive for vaginal bleeding. Musculoskeletal: Negative. Neurological: Negative. Labs: CBC: No results found for: WBC, RBC, HGB, HCT, MCV, MCH, MCHC, RDW, PLT, MPV PHYSICAL EXAM: Vitals: 02/12/25 1547 BP: 110/63 Pulse: 97 Resp: 18 SpO2: 98% General appearance: awake, alert, cooperative, no apparent distress, and appears stated age Neurologic: Awake, alert, oriented to name, place and time. Lungs: No increased work of breathing, good air exchange Abdomen: Soft, non tender, gravid, consistent with her gestational age Sterile Speculum Exam: Membranes: Intact HSV Lesions: not applicable Cervix: defer Contraction frequency: none ASSESSMENT AND PLAN: LABOR DELIVERY ??? SCD's ONLY (labor through ambulation) SCD's PLUS Prophylactic Anticoagulation until discharge SCD's PLUS Prophylactic Anticoagulation for 6 weeks SCD's PLUS Therapeutic Anticoagulation for 6 weeks Vaginal Delivery [] BMI >= 40 kg/m2 Delivery All patients Vaginal Delivery [] BMI >= 40 kg/m2 AND [] Antepartum hospitalization >= 72 hours within the past month Delivery 1 Major Risk Factor: [] BMI >= 35 kg/m2 [] Low Risk Thrombophilia [] PPH+RBCs, IR, or operation [] Infection+Antibiotics [] Antepartum hospitalization >= 72 hours within the past month [] PMH: Sickle Cell, SLE, Cardiac Dz, Active IBD, Active Cancer, Nephrotic Syndrome OR 2 Minor Risk Factors: [] Multiple gestation [] Age > 40 [] PPH >= 1,000cc [] (+)FMH of VTE [] Smoker [] Preeclampsia [] BMI >= 40 kg/m2 AND [] Low Risk Thrombophilia OR ANY OF THE FOLLOWING: [] High Risk Thrombophilia without prior VTE [] Low Risk Thrombophilia with (+)FMH of VTE [] Any single prior VTE ANY OF THE FOLLOWING: [] Already on LMWH/UFH [] Multiple prior VTE [] High Risk Thrombophilia with prior VTE Low Risk Thrombophilia: FVL (heterozygous), Prothrombin (heterozygous), Protein C, Protein S High Risk Thrombophilia: FVL (homozygous), Prothrombin (homozygous), FVL+Prothrombin (heterozygous), Antithrombin III, APLS VTE Prophylaxis: Not Indicated Admission: Admit to Antepartum (PNU) FHR: FHR 160 on BSUS, heart monitoring daily Labs: GBS not obtained GC/CT not obtained Urine collected FFN collected Type&Screen collected Serum Labs CBC, CMP. Coags Consults: MFM Imaging: Indicated/ordered Diet: NPO Testing: TBD Timing and Route of Delivery: TBD Medications: Neuroprotection Not indicated Tocolysis Not indicated Antibiotics Not indicated Steroids: Betamethasone - not indicated Vaginal Bleeding Concern for Abruption - Patient presents from office with concern for abruption - Reports weeks of intermittent heavy bleeding - Declines bleeding on current presentation - Abdominal exam unremarkable - VSS - Reports US that noted posterior placenta - Coags and CBC ordered - NPO at this time - TVUS ordered for am to assess bleeding Limited Care - Dated by LMP - Following with [employer] - Established care in setting of bleeding - OB records not available, labs obtained on admission IUP @ 17w1d - Dating by LMP - Variable - Monitoring: FHT daily - Diet: NPOE - BMZ deferred Discussed with Dr Dominguez, who agrees with plan. Nirali Navarro DO 02/12/2025, 5:33 PM Cc: Tunde Dominguez, * [1] History reviewed. No pertinent past medical history. [2] Past Surgical History: Procedure Laterality Date TOOTH EXTRACTION [3] No family history on file. [4] No medications prior to admission. Cosigned by Tunde Dominguez MD at 02/13/2025 2:53 PM EDT Associated attestation - Tunde Dominguez MD - 02/13/2025 2:53 PM EDT Hospital Care (Independent): I independently saw and evaluated the patient. I agree with the findings and plan of care as documented in the resident's note. Lina Gilbert is a 29 y.o. at 17w2d who is admitted for evaluation of vaginal bleeding. Patient reports that she has had ongoing bleeding throughout this . Initially, it was thought this was related to a subchorionic hemorrhage that was noted early in the . However, the patient reports her bleeding has been worsening in the recent past. When she went away on vacation to [place], that was her first significant episode of vaginal bleeding. She was seen locally in the emergency department in [place] and was told she had a normal ultrasound. I believe this was approximately 2 to 2-1/2 weeks ago. She was seen locally by her community health advocate and was also noted to have a significant amount of vaginal bleeding for . This was also accompanied by some uterine contractions the patient describes this transition like pain. This is waxing and waning and not present at this moment. She was recently referred to one of our general obstetricians for evaluation on February 11 and was noted to have a probable placental abruption. She presented here for evaluation after she continued to have some bleeding at home. This morning, the patient reports that her bleeding has subsided and is essentially absent on rounds today. She is not currently feeling any contractions or leakage of fluid. BP (!) 110/56 Pulse 90 Temp 36.8 C (98.2 F) (Oral) Resp 18 LMP 10/15/2024 SpO2 100% No acute distress, with Speaking in complete sentences; normal respiratory effort Abdomen nontender during ultrasound Ultrasound today is notable for normal early appearing anatomy. There is a placental abruption that is appreciated on the ultrasound. At the superior margin of the placenta, there is a 4.5 cm blood collection. At the inferior margin there is a 5 cm collection of fluid. The cervix is closed and of normal length, greater than 4 cm. Fibrinogen is 450 Hemoglobin was 12.4 on February 05 Hemoglobin is 12.7 at the time of admission A/P: Placental abruption is the premature separation of the placenta from the decidua. The patient is noted to be 17 weeks gestational age at this time, which is at a nonviable gestational age. Abruption typically presents with vaginal bleeding, abdominal pain, contractions and or non-reassuring heart rate pattern. Not all clinical findings are required for diagnosis and imaging is not necessary or sufficient to diagnose. Risk factors predisposing to placental abruption include maternal trauma, hypertension, substance use disorder, and smoking among others. Talking to the patient, she does not appear to have obvious risk factors for abruption. Placental abruption is associated with maternal and risks, depending on the severity and gestational age. The bleeding in placental abruption is maternal and thus continued abruption can progress to maternal hemorrhage with DIC. Thankfully, this patient clinically appears to be hemodynamically stable. I did discuss with the patient that she is at increased risk for rupture membranes secondary to the bleeding that she has experienced in this . She is noted to be O+, antibody negative. At this time, I have told the patient that my overall prognosis is quite guarded given the bleeding that she is experienced and her early gestational age. I discussed with her it is quite possible that she will go on to have a demise or miscarriage in this case. We had a jojo discussion regarding her options for termination given that she is 17 weeks 2 days. The patient indicates that she would prefer to remain . This is reasonable at this point given that she is hemodynamically stable. I did discuss with her my concern is for maternal wellbeing at this time and that our counseling would necessarily emphasize that until she reaches a viable gestational age. I think the patient is overall stable at this point and does not require hospitalization. Of course, she is likely to experience vaginal bleeding in the future and my hope is that it will be less significant than it was in the past. She was given bleeding precautions and told to present to the nearest location for evaluation, stabilization and potential transfer. I have discussed case with her primary date puller, Dr. Sanders --we will have the patient seen at least weekly with her next appointment with her primary date puller. I am hopeful that we will see the patient in follow-up as an outpatient in 2 weeks we can assess her condition and complete her anatomic evaluation. Certainly, complications in can be emotionally traumatizing. Particularly for someone who anticipated an easy in the setting of 4 prior home births. We have made counseling services available for the patient and her should she desire that in the future. John Dominguez MD [facility] Maternal- Medicine This documentation was prepared using [employer] voice recognition software. As a result, errors may occur. When identified, these errors have been corrected. While every attempt is made to correct errors during dictation, errors may still exist. Billing [employer] Chart review and preparation: 20 minutes. Face to face: 60 minutes. Documentation and care coordination: 20 minutes. =-=-=-=-=-=-==-=-=-=-=-=-==-=-= -=-=-=-==-=-=-=-= Total time spent on patient care today: 100 minutes. documented in this encounter [facility] 02-12-2025 Progress note [facility] 02-11-2025 Evaluation note Diagnosis Onset Date Resolution Placental abruption in second trimester acute February 11, 2025 12:27pm acute February 11, 2025 12:27pm Supervision of high-risk acute February 12:27pm [facility] Work Phone: [phone]) 692-952909-09-2025 Evaluation note* Diagnosis Onset Date Resolution Status Admit Date Placental abruption in secon d trimester acute February 11, 025 12:27pm acute February 11, 2025 12:27pm Supervision of high-risk acute February 11, 2 025 12:27pm Placental abruption in secon d trimester acute February 17, 2025 11:44am acute February 11:44am Supervision of high-risk acute February 17, 2025 11:44am [facility] Work Phone: Evaluation note* Diagnosis Onset Date Resolution Status Admit Date Placental abruption in secon d trimester acute February 11 025 12:27pm acute February 11, 2025 12:27pm Supervision of high-risk acute February 11 025 12:27pm [facility] [employer] Work Phone: Evaluation note* Diagnosis Indication for care in labor or delivery- Primary Unspecified indication for care or intervention related to labor and delivery, unspecified as to episode of care Indication for care in labor or delivery Unspecified indication for care or intervention related to labor and delivery, unspecified as to episode of care Vaginal bleeding in , second trimester documented in this encounter [facility] HealthProgress note Author Samantha Sanders [facility] Note Date/Time February 12, 2025 1:48pm [facility] Medical Records Department [address] [place] [address] OB Triage Progress Note 02/12/25 1344 MR#: [id number] Acct: [id number] Name: LINA GILBERT Rep #:[id number] : 1995 29 From: Samantha brumfield MD PCP: Status:REG CLI Y DOS: Location: [place] [address] Progress Notes Date of Service: 02/12/25 Progress Note: Patient seen for heavy vaginal bleeding. Placental abruption diagnosed at office yesterday. Patient has had bleeding throughout the beginning of the . Today had increased bleeding since 3 AM and cramping cannot sit up without having heavier bleeding so she has been staying laying down. Presented to the hospital today for evaluation. Upon evaluation heart tones presentand 150s upon brief bedside ultrasound placenta seen to be more than was yesterday across the back wall and 1 cm clot seen at the top of the cervix. Cervix closed thick high with dark old blood present in the vaginal vault. Labsdrawn and sent, hemoglobin dropped 1 g the rest of the labs are stable. Maternal- medicine evaluation recommended, they recommended ER evaluation as they will not see an abruption in the office. Discussed with patient transport via squad or personal car. At this time patient is stable enough for transport via personal car due to Pree viability and bleeding is decreased significantly. Recommend transfer up to [facility] for evaluation in the emergency room. Laboratory Studies: Laboratory Tests 02/12/25 Range/Units 11:15 WBC 15.6 H (4.4-11.0) K/mm3 RBC 3.86 L (4.2-5.4) M/mm3 Hgb 11.8 L (12.0-15.0) g/dL Hct 34.2 L (37-47) % MCV 88.6 (81-99) fL MCH 30.6 (27.0-32.0) pg MCHC 34.5 (32-36) g/dL RDW Std Deviation 41.5 (35.1-43.9) fl RDW Coeff of Nathaly 12.8 (11.6-14.6) % Plt Count 222 (150-450) K/mm3 MPV 9.5 (6.2-12.0) fl Immature Gran % (Auto) 1.100 H (0.0-0.9) % Neut % (Auto) 78.1 H (47-70) % Lymph % (Auto) 12.4 L (19-41) % [place] % (Auto) 5.9 (0-10) % Eos % (Auto) 2.1 (0-5) % Baso % (Auto) 0.4 (0-1) % Absolute Neuts (auto) 12.2 H (2.0-7.7) X10^3/uL Absolute Lymphs (auto) 1.94 (0.83-4.51) X10^3/uL Nucleated RBC % 0 (0-5) % PT 12.6 (11.7-14.9) SECONDS INR 0.9 APTT 30.3 (24.1-36.2) Seconds Fibrinogen 460 H (203-444) mg/dl Charges/Coding Multi Select Codes Urinary/Genital Urinary/Genital CPT Codes: No Charge 02/12/25 1348 <Electronically signed by Samantha vernon MD> Date _ Samantha Sanders MD Cosigner Signature (if applicable): Date CC: Dr. Samantha Sanders MD ~ Signed [facility] Work Phone: Reason for referral (narrative)No reason for referral [facility] Work [facility]: Summary Purpose Family History No Family History Records FoundNo Family History Records FoundNo Family History Records Found Advance Directives No Advanced Directives Records Found Date Activated Date Inactivated Comments 02/12/2025 4:59 PM 02/13/2025 5:20 PM Chief Complaint and Reason for Visit Chief Complaint Admit Date 2nd Tri Bleeding *per February 11, 2025 12:27pm Reason for Visit Admit Date Placental abruption in second trimester February 11, 2025 12:27pm February 11, 2025 12:27pm Supervision of high-risk [facility] 2024 12:27pm Chief Complaint Admit Date 2nd Tri Bleeding *per February 11, 2025 12:27pm DEMISE February 12, 2025 10:20am DEMISE February 12, 2025 1:44pm Chief Complaint Admit Date 2nd Tri Bleeding *per February 11, 2025 12:27pm R/O ABRUPTION February 12, 2025 10:20am DEMISE February 12, 2025 1:44pm [id number] ob *per February 17, 2025 11:44am Reason for Visit Admit Date Placental abruption in second trimester February 11, 2025 12:27pm February 11, 2025 12:27pm [facility] 12:27[facility] Placental abruption in second trimester February 17, 2025 11:44am February 17, 2025 11:44am Supervision of high-risk [facility] 2024 11:44am Additional Source Comments INFORMATION SOURCE (unrecogn ized section and content) DATE CREATED AUTHOR 12/07/2017 [facility] ([place]) DATE CREATED AUTHOR AUTHOR'S ORGANIZ ATION 02/15/2025 [facility] DATE CREATED AUTHOR AUTHOR'S ORGANIZ ATION 02/18/2025 [facility] Care Teams (unrecognized sec tion and content) Team Status: Inactive Member Role/Relationship Status Dates Dr. Samantha Sanders MD Attending Provider Active Start: February 11, 2025 End: February 11, 2025 Team Status: Active Member Role/Relationship Status Dates Dr. Samantha Sanders MD Attending Provider Active Start: February 11, 2025 Dr. Samantha Sanders MD Referring Provider Active Start: February 11, 2025 Team Status: Inactive Member Role/Relationship Status Dates Dr. Samantha Sanders MD Attending Provider Active Start: February 12, 2025 End: February 12, 2025 Dr. Samantha Sanders MD Referring Provider Active Start: February 12, 2025 End: February 12, 2025 Team Status: Active Member Role/Relationship Status Dates Dr. Samantha Sanders MD Attending Provider Active Start: February 12, 2025 Dr. Samantha Sanders MD Referring Provider Active Start: February 12, 2025 Dr. Samantha Sanders MD Other Provider Active Start: February 12, 2025 Team Status: Inactive Member Role/Relationship Status Dates Dr. Samantha Sanders MD Attending Provider Active Start: February 17, 2025 End: February 17, 2025 Goals (unrecognized section and content) Goals may be documented in a n alternate sectionGoals may be documented in an alternate sectionGoals may be documented in an alternate section Reason for Visit (unrecogniz ed section and content) Reason Comments Vaginal Bleeding Specialty Diagnoses / Procedures Referred By Contac t Referred To Contact Diagnoses Indication for care in labor or delivery Procedures . Tunde Dominguez MD [address] [facility] [address] [place] [address] Phone: tel: fax: [facility] [address] [place] [address] Phone: tel: Referral ID Status Reason Start Date Expiration Date Visits Re quested Visits Authorized [id number] 1 1 Scheduled Active and Recently Administ ered Medications (unrecognized section and content) Medication Order 02/11/2025 02/12/2025 02/13/2025 lactated ringers bolus 1,000 mL (COMPLETED) 1,000 mL, IntraVENous, at 500 mL/hr, Administer over 2 Hours, Once, On Mon02/12/25 at 2145, For 1 dose 2218 (New Bag - Provider: Marylu Rodriguez, RN) 0018 (Stopped - Provider: Marylu Rodriguez, RN) vitamin tablet 1 tablet, Oral, Daily, First dose on Mon02/12/25 at 1700 1700 (Canceled Entry - Provider: Automatic Discharge Provider - Comment: Automatically canceled at discontinue of medication order) 1352 (Not Given - Provider: Ingris Obrien, CASSIDY - Reason: Patient/family refused) sodium chloride 0.9% (NS) flush 10 mL 10 mL, IntraVENous, Every 12 hours scheduled (2 times per day), First dose on Mon02/12/25 at 2100 2115 (Given - Provider: Marylu Rodriguez RN) 1353 (Not Given - Provider: Ingris Obrien, CASSIDY - Reason: Patient/family refused) PRN Medication Order 02/11/2025 02/12/2025 02/13/2025 acetaminophen (Tylenol) tablet 650 mg 650 mg, Oral, Every 4 hours PRN, mild pain (1-3), Fever GREATER than 100.5 F (38 C), Starting on Mon02/12/25 at 1656, Maximum dose of acetaminophen is 4000 mg from all sources in 24 hours. ondansetron (Zofran) injection 4 mg(Linked Group 1) 4 mg, IntraVENous, Every 6 hours PRN, nausea, vomiting, Starting on Mon02/12/25 at 1656, 1st Line. Give IV if patient is unable to take orally. If inadequate response within 60 minutes, proceed to next-line agent or contact provider if no further options ordered. ondansetron ODT (Zofran-ODT) disintegrating tablet 4 mg(Linked Group 1) 4 mg, Oral, Every 8 hours PRN, nausea, vomiting, Starting on Mon02/12/25 at 1656, 1st Line. If inadequate response within 60 minutes, proceed to next-line agent or contact provider if no further options ordered. Patient should allow tablet to dissolve on tongue. Do not remove from blister pack until just before administering. sodium chloride 0.9 % infusion 5-250 mL/hr, IntraVENous, PRN, if patient receiving piggyback infusions and maintenance fluids are not ordered OR KVO fluids to protect IV site / prevent frequent line interruptions/ long duration, Starting on Mon02/12/25 at 1656, For piggyback infusion, administer at same rate as piggyback for a total of 25 mL. Enter 25 mL into dose field and piggyback rate into rate field of order. If piggyback is infusing at a rate less than 100 mL/hr, enter 25 mL into dose field and 100 mL/hr into rate field of order. For KVO fluids, enter rate of 20 mL/hr or less into rate field of order. sodium chloride 0.9% (NS) flush 10 mL 10 mL, IntraVENous, PRN, line care, Starting on Mon02/12/25 at 1656, After every IV line use Linked Groups Order Group 1: ondansetron ODT (Zofran-ODT) disintegrating tablet 4 mgJump to med 4 mg, Oral, Every 8 hours PRN, nausea, vomiting, Starting on Mon02/12/25 at 1656, 1st Line. If inadequate response within 60 minutes, proceed to next-line agent or contact provider if no further options ordered. Patient should allow tablet to dissolve on tongue. Do not remove from blister pack until just before administering. Or ondansetron (Zofran) injection 4 mgJump to med 4 mg, IntraVENous, Every 6 hours PRN, nausea, vomiting, Starting on Mon02/12/25 at 1656, 1st Line. Give IV if patient is unable to take orally. If inadequate response within 60 minutes, proceed to next-line agent or contact provider if no further options ordered. FOR RECORDS PERTAINING TO PATIENTS WHO ARE OR HAVE BEEN ENROLLED IN A CHEMICAL DEPENDENCY/SUBSTANCEABUSE PROGRAM, SOME INFORMATION MAY BE OMITTED. This clinical summary was aggregated from multiple sources. Caution should be exercised in using it in the provision of clinical care. This summary normalizes information from multiple sources, and as a consequence, information in this document may materially change the coding, format and clinical context of patient data. In addition, data may be omitted in some cases. CLINICAL DECISIONS SHOULD BE BASED ON THE PRIMARY CLINICAL RECORDS. Embedded [facility]. provides no warranty or guarantee of the accuracy or completeness of information in this document.
[2025-02-25 02:32] LABS: Mucous, Urine 0 SEEN /hpf (<or=2+); Red Blood Cells-Urine 0 SEEN /hpf (0-5); Squamous Epithelial Cells - UA 0 SEEN /hpf (5-10)
--- NOTE | 2025-02-25 03:10 | OB.TRI.HP_ITS ---
HPI - General HPI Narrative PATITO LLANES, is a 29 F who presents at 19 weeks with P PROM. She has had a history of chronic abruption in this with bleeding intermittently for the last few weeks. She started having leaking at midnight this morning and prior to that had contractions but minimal bleeding, now she is not feeling any regular contractions overall but does have some mild uterine irritability present. She denies any signs or symptoms of infection recently. Maternal Data Information RADHA Calculator Estimated Delivery Date Method Current WG Current Estimate 07/22/25 LMP (Certain) 19w 0d PFSH PFSH Home Medications ?Medication ?Instructions ?Recorded ?Last Taken ?Type B Complex PO 02/11/25 02/24/25 History Lactobacillus acidophilus 250 500 mmu cells PO DAILY 0 02/12/25 02/24/25 History million cell capsule (Probiotic Acidophilus) cod liver oil 10 ml PO DAILY 02/12/2502/04 History magnesium 200 mg tablet 200 mg PO DAILY 02/12/25 History Allergy/AdvReac Type Severity Reaction Status Date / Time gluten Allergy Unknown Other Verified 02/25/25 02:47 Surgical History History of dental surgery Social History household members: spouse and children number of children: 4 current occupation: [employer] Smoking Status: Never smoker alcohol intake: never substance use type: does not use do you feel safe at home: Yes additional social history: Jesus Alberto ([place]) History 5 Elective abortions Hx Para 4 Spontaneous abortions Hx # Term Pregnancies Ectopic pregnancies Hx # Pregnancies Multiple births # of living children 4 Past Pregnancies Del. Date Name GA/Weeks Outcome Route Bth Weight Infant Gen Labor Lgth Anesthesia Del Locatn Provider FOB Unknown 2017 [place] live - full term Unknown 2018 Zofia live - full term Unknown 2020 [place] live - full term Unknown 2022 Jaida live - full term Visit Details Expected Delivery Route/Plan Labor Preferences- CB/BF classes: [] labor support person: [] labor intervention preferences: [] pain management options preferred: [] cut cord/dad catch: [] : [] PP control planned: [] discussed possible routes of delivery and associated risks: [] special requests: [] Plans Covid status: [] Flu vaccine: [] Tdap vaccine: [] Rhogam: [] LARC form signed: [] Problem list reviewed and updated with the most current plan of care details and appropriate orders placed. Relevant counseling for the gestational age provided. Continue routine care and follow up unless otherwise noted in visit notes/problem list details OB Flowsheet Initial Weight: Not Recorded Date -?-?-?-?-?-?-?-?-?-?-?-?- EGA Weight BP Urine Prot -?-?-?-?-?-?-?-?-?-?-?-?- Glucose FHR FuHt Pres Dilation -?-?-?-?-?-?-?-?-?-?-?-?- Effaced St Visit Note 02/11/25 -?-?-?-?-?-?-?-?-?-?-?-?- 17w 0d 141 lb 1 oz 102/66 -?-?-?-?-?-?-?-?-?-?-?-?- 150 -?-?-?-?-?-?-?-?-?-?-?-?- SM- ZE from Pauline Alonzo SM- ZE from Fam Alonzo. SM- ZE from Fam Alonzo due to vaginla bleeding throughout the beginning of the . 1x3 cm marginal placental abruption seen on ultrasound no previa amniotic fluid growwly normal amount but granular appearance. 02/17/25 -?-?-?-?-?-?-?-?-?-?-?-?- 17w 6d 145 lb 114/70 Negative -?-?-?-?-?-?-?-?-?-?-?-?- Negative 150 -?-?-?-?-?-?-?-?-?-?-?-?- SM- continued bl eeding, following with MFM closely, ocntinue reduced activity. 2 areas of abruption, stable at this time clinically ROS Constitutional Constitutional: Reports systems reviewed and no addt'l complaints, except as documented and as per HPI ENT HEENT: Reports systems reviewed and no addt'l complaints, except as documented Cardiovascular Cardiovascular: Reports systems reviewed and no addt'l complaints, except as documented Respiratory/Chest Respiratory/Chest: Reports systems reviewed and no addt'l complaints, except as documented Gastrointestinal Gastrointestinal: Reports as per HPI Genitourinary Genitourinary: Reports as per HPI Musculoskeletal Musculoskeletal: Reports systems reviewed and no addt'l complaints, except as documented Integumentary Integumentary: Reports systems reviewed and no addt'l complaints, except as documented Neurologic Neurologic: Reports systems reviewed and no addt'l complaints, except as documented Physical Exam Const alert, oriented x3 and no apparent distress HEENT Head and Scalp: normocephalic and atraumatic Neck full ROM and no lymphadenopathy Chest inspection of chest normal Resp normal respiratory effort GI GI Narrative: gravid, abdomen nontender, AGA Manual OB Exam: dilated 0 visibly, fluid pooling and coming from os, effaced and station NST FHR Rate Baby A Baseline: 140 Variability:: Moderate Accelerations:: 15 x 15 Decelerations:: None NST Reactive:: Yes FHR Category:: Category I Uterine Activity:: regular q 2-4 Assessment & Plan (1) premature rupture of membranes (PPROM) with unknown onset of labor: COMMENT: previable, discussed with MFM plan antibiotics for latency- ampicillin x 48 hours then amoxicillin x 5 days, given azithro 1 g orally. if stable after 48 hours plan dc home to manage expectantly as OP and fu with MFM monday. plan admission at viability 22/23 weeks with steroid administration at that time (2) Placental abruption in second trimester: COMMENT: s/p mfm consult and anatomy scan schedule wednesday 02/28 (3) Supervision of high-risk : COMMENT: PRR RADHA 07/22/25 boy zofia Ugalde simeon, jaida [place] (4) : QUALIFIERS: Weeks of gestation: 17 weeks Qualified Code(s): Z3A.17 - 17 weeks gestation of COMMENT: ZE fam eladia due to persistent vb. genetic, carrier, afp declined. (5) Breech presentation: PLAN: Plan admit for antibiotics, monitoring. discussed with MFm. see ap comments for details Charges/Coding Multi Select Codes Visit Charges Office Visit/Consults: 75953 OV L3 Est 20min
[2025-02-25 03:13] LABS: Color, Urine Yellow (Yellow); Glucose, Dipstick Normal (Normal); Ketone-Dipstick Negative (Negative); Leukocyte Esterase-Dipstick 100 /ul (Negative); Nitrite-Dipstick Negative (Negative); Occult Blood-Urine 150 /ul (Negative); Protein-Dipstick Negative (Negative); Specific Gravity, Urine 1.010 (1.002-1.030); Urine Bilirubin Dipstick Negative (Negative)
--- NOTE | 2025-02-25 03:17 | US_ITS ---
PROCEDURE: OB LIMITED WITH BIOMETRICS 02/25/2025 REASON FOR EXAM: PPROM, KNOWN ABRUPTION TECHNIQUE: Procedure Code: USOBGROWTH Modality: US Procedure: OB LIMITED WITH BIOMETRICS COMPARISON: None FINDINGS Number: 1 Position: Breech Placental Position: Posterior and not low-lying. Placental Abnormalities: There is a 2.6 cm 1.7 cm x 1.2 cm complex area along the edge of the placenta. This may represent the area of abruption. DIMENSIONS: Biparietal Diameter: 4.4 cm: 19 weeks and 3 days: 68 percentile/ Head Circumference: 15.7 cm: 18 weeks and 2 days: 24th percentile/ Abdominal Circumference: 12.7 cm: 18 weeks and 2 days: 22nd percentile/ Femur Length: 2.8 cm: 18 weeks and 4 days: 30 percentile./ ESTIMATED WEIGHT: 245 g plus/-37 g. ESTIMATED WEIGHT PERCENTILE (24+ weeks): 22 ESTIMATED GESTATIONAL AGE: Baseline: 19 weeks and 0 days By Ultrasound: 18 weeks and 5 days ESTIMATED DATE OF DELIVERY: Baseline: July 22, 2025 By Ultrasound: July 24 2025 BIOPHYSICAL ASSESSMENT: Amniotic Fluid Volume: 0.4 cm Amniotic Fluid Index: 0.4 cm (8-24 cm normal range) Cardiac Motion: 150 beats per minute (average) Trunk and Limb Motion: Present. MATERNAL ANATOMY: Adnexa: Neither maternal ovary is successfully identified. Cervical Length (if measured): 4.7 cm. Possible clot measuring 2.2 cm 2.3 cm 1.6 cm seen in the cervix. US/OB Limited With Biometrics IMPRESSION: Single live intrauterine gestation with a mean gestational age of 18 weeks and 5 days. Oligohydramnios. 2.6 cm 1.7 cm 1.2 cm complex cystic structure adjacent to the edge of the place nta suggestive of possible abruption. 2.2 cm x 2.3 cm 1.6 cm clot in the cervix. The referring physician was notified of the results. Reading Location: [place] [address]
[2025-02-25 03:23] LABS: Hematocrit 33.2 % (37-47); Hemoglobin 11.7 g/dL (12.0-15.0); Immature Granulocytes Count 0.350 X10^3/uL (0.0-0.0); Mean Corp Hgb Conc 35.2 g/dL (32-36); Mean Corpuscular Volume 88.1 fL (81-99); Mean Platelet Vol. 9.6 fl (6.2-12.0); NRBC Flagged by Analyzer 0 % (0-5); Platelet Count 227 K/mm3 (150-450); RBC Distribution Width CV 13.2 % (11.6-14.6); RBC Distribution Width SD 42.3 fl (35.1-43.9); Red Blood Count 3.77 M/mm3 (4.2-5.4); White Blood Count 18.3 K/mm3 (4.4-11.0)
[2025-02-25] MEDS: LACTATED RINGERS 500 ML 999 ML IV (03:30)
[2025-02-25 03:45] LABS: Syphilis Antibodies Nonreactive (Nonreactive)
[2025-02-25 04:05] LABS: Prothrombin Time (Protime)PT. 13.3 SECONDS (11.7-14.9)
[2025-02-25 04:06] LABS: Fibrinogen 430 mg/dl (203-444); Partial Thromboplast Time 30.6 Seconds (24.1-36.2)
[2025-02-25] MEDS: Ampicillin 2 GM in 0.9% Normal Saline (100mL MB+) 100 ML IV ×4 (04:15→23:23)
[2025-02-25] MEDS: Lactated Ringers 1,000 ML 999 ML IV ×2 (08:18→13:35)
--- NOTE | 2025-02-25 08:46 | PCM.PN.BLA ---
Progress Note reviewed labs and ultrasound with patient, afebrile at present, giving IVF bolus. patient declining vaginal exam at present. still having fluid come out, some bleeding no clots, cervix 4 cm on US no funneling, abruption seen but smaller than on previous exams. severe oligohydramnios seen, breech. clot seen over top of cervix.
[2025-02-25] MEDS: 0.9% Saline Lock 10 ML Syringe IV ×2 (13:25→13:40)
[2025-02-25 14:06] LABS: Hematocrit 34.0 % (37-47); Hemoglobin 11.8 g/dL (12.0-15.0); Immature Granulocytes Count 0.250 X10^3/uL (0.0-0.0); Mean Corp Hgb Conc 34.7 g/dL (32-36); Mean Corpuscular Volume 89.0 fL (81-99); Mean Platelet Vol. 9.8 fl (6.2-12.0); NRBC Flagged by Analyzer 0 % (0-5); Platelet Count 225 K/mm3 (150-450); RBC Distribution Width CV 13.3 % (11.6-14.6); RBC Distribution Width SD 43.0 fl (35.1-43.9); Red Blood Count 3.82 M/mm3 (4.2-5.4); White Blood Count 20.6 K/mm3 (4.4-11.0)
[2025-02-25 14:12] LABS: Prothrombin Time (Protime)PT. 13.2 SECONDS (11.7-14.9)
[2025-02-25 14:13] LABS: Partial Thromboplast Time 29.7 Seconds (24.1-36.2)
[2025-02-25 14:24] LABS: AST(SGOT) 18 U/L (<=31); Alanine Aminotransfer ALT/SGPT 9 U/L (<=34); Albumin, Serum 3.3 g/dL (3.5-5.0); Alkaline Phosphatase 103 U/L (35-104); Anion Gap 11 (5-15); BUN 8 mg/dL (4-19); BUN/Creat Ratio 15.0 RATIO (10-20); Calcium,Total 8.2 mg/dL (7.6-11.0); Carbon Dioxide 19.0 mmol/L (21.0-32.0); Chloride 105 mmol/L (98-108); Estimated Creatinine Clearance 135.10 ml/min (50-250); Globulin 3.0 g/dL (2.2-4.2); Glucose 90 mg/dL (70-99); Potassium 4.0 mmol/L (3.3-5.1)
[2025-02-25] MEDS: Gentamicin IV 300 MG in Dextrose 5%-Water (50mL Bag) 50 ML 100 MG IVPB (14:37)
[2025-02-25] MEDS: Lactated Ringers 1,000 ML 200 ML IV ×2 (14:37→20:50)
[2025-02-25] MEDS: Clindamycin 900 MG/50 ML BAG 75 MG IV ×2 (15:25→22:12)
[2025-02-25] MEDS: Oxytocin 15 Units/NS 250ml 15 UNITS/250 ML IV.SOLN 2 UNITS IV (16:21)
--- NOTE | 2025-02-25 16:56 | PN_ITS ---
Progress Note patient is laying in bed. The nurse was unable to find a heart tone by doppler. Her most recent white counts are trending upward from 15 to 16, to 18 and now 20. Her pulse is increasing and her blood pressure dropped to 88/45 at one point prior to her recent fluid bolus. More recent blood pressure is 112/67. Sepsis protocol was ordered at 1:30 when the nurse called me while in the operating room. Physical Exam Const alert, oriented x3 and no apparent distress General Appearance: cooperative and comfortable HEENT normocephalic Eyes General Eye: normal appearance of both eyes Neck no lymphadenopathy Lymph Lymphatic: no lymphadenopathy noted Chest inspection of chest normal Resp normal respiratory effort Effort and Inspection: able to speak in complete sentences Cardio regular rhythm GI GI Narrative: non-tender uterus on exam. bedside ultrasound shows a transverse fetus with head flexed and a heart beat present of 130 bpm. There is no fluid present. Assessment & Plan Assessment/Plan (1) premature rupture of membranes (PPROM) with unknown onset of labor: (2) Placental abruption in second trimester: (3) Supervision of high-risk : (4) : QUALIFIERS: Weeks of gestation: 17 weeks Qualified Code(s): Z3A.17 - 17 weeks gestation of (5) Chorioamnionitis: PLAN: starting triple antibiotics for presumed chorioamnionitis after a long discussion the patient has agreed to start pitocin to induce labor to prevent sepsis. She understands that she is continued to be at risk for sepsis until the baby is delivered and we eliminate the source of infection. Sepsis Attestation Sepsis Attestation: Sepsis Ruled Out Date exam was performed: 02/25/25 Possible Source of Sepsis: Genitourinary (suspecting from amniotic sac rupture ) Sepsis Organ Dysfunction Criteria Present: SBP < 90 mmHg or MAP < 65 mmHg and S chana CO2 < 20 mmol/L (on BMP) Supportive Findings: progressively increasing white blood cell count, tachycardia. Fluid Resuscitation Fluid resuscitation indicated?: Yes Fluid Resuscitation ordered: 30 ml/kg fluid bolus ordered Sepsis Note Date exam was performed: 02/25/25 Time exam was performed: 15:00 Response to fluids: Fluid responsive hypotension Capacity Capacity Assessment Tool Patient lacks Decision Making Capacity: unable to understand, reason and deliberate health related choices: No Risk to self and or others?: No Risk of leaving the patient care unit and or hospital?: No
[2025-02-25 17:46] LABS: Hematocrit 30.7 % (37-47); Hemoglobin 10.6 g/dL (12.0-15.0); Immature Granulocytes Count 0.250 X10^3/uL (0.0-0.0); Mean Corp Hgb Conc 34.5 g/dL (32-36); Mean Corpuscular Volume 89.0 fL (81-99); Mean Platelet Vol. 9.6 fl (6.2-12.0); NRBC Flagged by Analyzer 0 % (0-5); Platelet Count 206 K/mm3 (150-450); RBC Distribution Width CV 13.2 % (11.6-14.6); RBC Distribution Width SD 42.9 fl (35.1-43.9); Red Blood Count 3.45 M/mm3 (4.2-5.4); White Blood Count 19.8 K/mm3 (4.4-11.0)
[2025-02-25 19:09] LABS: AST(SGOT) 13 U/L (<=31); Alanine Aminotransfer ALT/SGPT 9 U/L (<=34); Albumin, Serum 3.0 g/dL (3.5-5.0); Alkaline Phosphatase 82 U/L (35-104); Anion Gap 11 (5-15); BUN 8 mg/dL (4-19); BUN/Creat Ratio 17.3 RATIO (10-20); Calcium,Total 8.1 mg/dL (7.6-11.0); Carbon Dioxide 19.3 mmol/L (21.0-32.0); Chloride 104 mmol/L (98-108); Estimated Creatinine Clearance 179.09 ml/min (50-250); Globulin 2.6 g/dL (2.2-4.2); Glucose 110 mg/dL (70-99); Potassium 3.7 mmol/L (3.3-5.1)
[2025-02-26] VITALS (153 sets, daily range): BP systolic 90–117; BP diastolic 50–70; PULSE 75–116; RESP 14–18; TEMP 36.6–37.7; O2SAT 88–100
--- NOTE | 2025-02-26 01:05 | PCM.PN.OB ---
Subjective Subjective Patient's nurse called me to report that after approximately 5 hours of pitocin, contractions are hardly palpable and upon cervical exam she is only 1-2 cm dilated. My recommendation is to stop pitocin and I have explained to the patient and her community health program coordinator that has been by her bedside throughout this process, that pitocin receptors are not always mature at 19 weeks gestation. She would benefit from 400mcg vaginal cytotec every 4 hours until delivery.The patient is refusing this stating that she is too exhausted to go on. She wants an 8 hour nap and restart in the morning. I have advised against this plan based on her vitals and white blood cell count that she likely has chorioamnionitis and stopping treatment means a delay in care that could put her closer to sepsis or worse. An epidural would allow her to get some rest while continuing with the treatment. She refuses this treatment plan. She has agreed to sign a decision against treatment form. in the meantime, vitals every one hour are still needed and I have expressed to her that this option is not ideal or medically safe. I have also asked that her community health program coordinator respectfully step aside as I believe that she could be hindering her care at this time. Nurse Mary has reported to me that her community health program coordinator is acting irate and has turned the contraction monitor off without permission. She is questioning the medical judgement of the diagnosis of chorio to the patient and her . The monitor was turned back on by her after a few moments before she was able to return to the room. I have discussed with the charge nurse that if the community health program coordinator continues to be a hindrance to the patient's care that we will need to ask her to leave. If refuses, may require security control room officer out, especially if she handling medical equipment in a capacity against hospital policy. The community health program coordinator does not have hospital privileges to practice care here. Objective Data Objective Data Vital Signs: Vital Signs Temp Pulse Resp BP Pulse Ox 98.8 F 84 14 101/63 100 02/26/25 00:26 02/26/25 01:01 02/25/25 23:19 02/26/25 00:19 02/26/25 01:01 Weight: 145 lb 8.081 oz Body Mass Index (BMI) 23.5 Intake & Output: Intake and Output for Last 24 Hours 09/02/25/25 02/26/25 23:59 23:59 23:59 Intake Total 4007.83 / 4007.83 100 / 100 Output Total 1500 / 1500 Balance 2507.83 / 2507.83 100 / 100 Lab / Micro Data 02/25/25 17:27 02/25/25 17:27 Labs: Laboratory Results - last 24 hr 02/25/25 02:15: Urine Color Yellow, Urine Clarity Clear, Urine pH 6.5, Ur Specific [place] 1.010, Urine Protein Negative, Urine Glucose (UA) Normal, Urine Ketones Negative, Urine Occult Blood 150 H, Urine Nitrite Negative, Urine Bilirubin Negative, Urine Urobilinogen Normal, Ur Leukocyte Esterase 100 H, Urine RBC 0 SEEN, Urine WBC 0 SEEN, Ur Squamous Epith Cells 0 SEEN, Urine Bacteria 0 SEEN, Urine Mucus 0 SEEN 02/25/25 02:20: Blood Type O POSITIVE, Antibody Screen NEGATIVE 02/25/25 03:00: WBC 18.3 H, RBC 3.77 L, Hgb 11.7 L, Hct 33.2 L, MCV 88.1, MCH 31.0, MCHC 35.2, RDW Std Deviation 42.3, RDW Coeff of Nathaly 13.2, Plt Count 227, MPV 9.6, Immature Gran % (Auto) 1.900 H, Neut % (Auto) 78.0 H, Lymph % (Auto) 12.3 L, [place] % (Auto) 5.8, Eos % (Auto) 1.6, Baso % (Auto) 0.4, Absolute Neuts (auto) 14.3 H, Absolute Lymphs (auto) 2.25, Nucleated RBC % 0, PT 13.3, INR 1.0, APTT 30.6, Fibrinogen 430, Syphilis Total Ab Nonreactive 02/25/25 13:25: WBC 20.6 H, RBC 3.82 L, Hgb 11.8 L, Hct 34.0 L, MCV 89.0, MCH 30.9, MCHC 34.7, RDW Std Deviation 43.0, RDW Coeff of Nathaly 13.3, Plt Count 225, MPV 9.8, Immature Gran % (Auto) 1.200 H, Neut % (Auto) 82.1 H, Lymph % (Auto) 10.0 L, [place] % (Auto) 5.4, Eos % (Auto) 1.0, Baso % (Auto) 0.3, Absolute Neuts (auto) 16.9 H, Absolute Lymphs (auto) 2.07, Nucleated RBC % 0, PT 13.2, INR 1.0, APTT 29.7, Sodium 135, Potassium 4.0, Chloride 105, Carbon Dioxide 19.0 L, Anion Gap 11, BUN 8, Creatinine 0.57 L, Estim Creat Clear Calc 135.10, Est GFR (MDRD) Non-Af 126, BUN/Creatinine Ratio 15.0, Glucose 90, Lactic Acid 1.2, Calcium 8.2, Total Bilirubin 0.34, AST 18, ALT 9, Alkaline Phosphatase 103, Total Protein 6.3, Albumin 3.3 L, Globulin 3.0, Albumin/Globulin Ratio 1.1 02/25/25 17:27: WBC 19.8 H, RBC 3.45 L, Hgb 10.6 L, Hct 30.7 L, MCV 89.0, MCH 30.7, MCHC 34.5, RDW Std Deviation 42.9, RDW Coeff of Nathaly 13.2, Plt Count 206, MPV 9.6, Immature Gran % (Auto) 1.300 H, Neut % (Auto) 81.7 H, Lymph % (Auto) 10.2 L, [place] % (Auto) 5.4, Eos % (Auto) 1.1, Baso % (Auto) 0.3, Absolute Neuts (auto) 16.2 H, Absolute Lymphs (auto) 2.02, Nucleated RBC % 0, Sodium 134, Potassium 3.7, Chloride 104, Carbon Dioxide 19.3 L, Anion Gap 11, BUN 8, Creatinine 0.43 L, Estim Creat Clear Calc 179.09, Est GFR (MDRD) Non-Af 134, BUN/Creatinine Ratio 17.3, Glucose 110 H, Lactic Acid 1.5, Calcium 8.1, Total Bilirubin 0.41, AST 13, ALT 9, Alkaline Phosphatase 82, Total Protein 5.6 L, Albumin 3.0 L, Globulin 2.6, Albumin/Globulin Ratio 1.1 Micro: Microbiology 02/25/25 03:00 Genital vaginal Group B Streptococcus (PCR) - Final Radiography Diagnostic Testing: Radiology Impression Obstetrics Ultrasound 02/25/25 03:17 IMPRESSION: Single live intrauterine gestation with a mean gestational age of 18 weeks and 5 days. Oligohydramnios. 2.6 cm 1.7 cm 1.2 cm complex cystic structure adjacent to the edge of the placenta suggestive of possible abruption. 2.2 cm x 2.3 cm 1.6 cm clot in the cervix. The referring physician was notified of the results. Reading Location: [facility] Assessment & Plan (1) Chorioamnionitis: PLAN: triple antibiotics and proceed with delivery is recommended since starting amp/gent/clinda, her pulse is down to 87. Her blood pressure remains low however despite multiple fluid boluses. Cytotec and epidural is encouraged. If refuses will need to sign a refusal for treatment form, explaining the risks of stopping treatment to treat the problem. I have privately discussed this with the nurse, the charge nurse, and the community health program coordinator and I have asked for her to go home and get rest and allow us to practice the medicine without her negative influence. I am unsure if she will honor my request. repeat cbc, bmp, and lactic acid at 5 am at very least, continue q 1 hr vitals., continuous pulse ox is needed. (2) Breech presentation: (3) premature rupture of membranes (PPROM) with unknown onset of labor: COMMENT: previable, discussed with MFM plan antibiotics for latency- ampicillin x 48 hours then amoxicillin x 5 days, given azithro 1 g orally. if stable after 48 hours plan dc home to manage expectantly as OP and fu with MFM monday. plan admission at viability 22/23 weeks with steroid administration at that time (4) Placental abruption in second trimester: COMMENT: s/p mfm consult and anatomy scan schedule wednesday 02/28 (5) Supervision of high-risk : COMMENT: PRR RADHA 07/22/25 boy chana Ugalde simeon, jaida [place] (6) : QUALIFIERS: Weeks of gestation: 17 weeks Qualified Code(s): Z3A.17 - 17 weeks gestation of COMMENT: ZE fam montilla due to persistent vb. genetic, carrier, afp declined.
[2025-02-26] MEDS: Lactated Ringers 1,000 ML 200 ML IV ×2 (03:11→09:18)
[2025-02-26] MEDS: Clindamycin 900 MG/50 ML BAG 75 MG IV ×2 (04:10→11:35)
[2025-02-26 05:15] LABS: Hematocrit 34.4 % (37-47); Hemoglobin 12.0 g/dL (12.0-15.0); Immature Granulocytes Count 0.260 X10^3/uL (0.0-0.0); Mean Corp Hgb Conc 34.9 g/dL (32-36); Mean Corpuscular Volume 88.4 fL (81-99); Mean Platelet Vol. 9.5 fl (6.2-12.0); NRBC Flagged by Analyzer 0 % (0-5); Platelet Count 215 K/mm3 (150-450); RBC Distribution Width CV 13.3 % (11.6-14.6); RBC Distribution Width SD 43.0 fl (35.1-43.9); Red Blood Count 3.89 M/mm3 (4.2-5.4); White Blood Count 21.3 K/mm3 (4.4-11.0)
[2025-02-26 05:21] LABS: AST(SGOT) 15 U/L (<=31); Alanine Aminotransfer ALT/SGPT 8 U/L (<=34); Albumin, Serum 3.1 g/dL (3.5-5.0); Alkaline Phosphatase 92 U/L (35-104); Anion Gap 10 (5-15); BUN 6 mg/dL (4-19); BUN/Creat Ratio 12.6 RATIO (10-20); Calcium,Total 8.4 mg/dL (7.6-11.0); Carbon Dioxide 20.6 mmol/L (21.0-32.0); Chloride 105 mmol/L (98-108); Estimated Creatinine Clearance 163.85 ml/min (50-250); Globulin 3.0 g/dL (2.2-4.2); Glucose 101 mg/dL (70-99); Potassium 4.0 mmol/L (3.3-5.1)
[2025-02-26] MEDS: Ampicillin 2 GM in 0.9% Normal Saline (100mL MB+) 100 ML IV ×2 (05:21→12:55)
--- NOTE | 2025-02-26 10:30 | PCM.PN.OB ---
Subjective Subjective patient tolerating contractons well, resting. Objective Data Objective Data Vital Signs: Vital Signs Temp Pulse Resp BP Pulse Ox 98.8 F 86 16 104/62 98 02/26/25 08:14 02/26/25 10:27 02/26/25 08:16 02/26/25 10:06 02/26/25 10:27 Weight: 145 lb 8.081 oz Body Mass Index (BMI) 23.5 Intake & Output: Intake and Output for Last 24 Hours 02/24/25 02/25/25 02/26/25 23:59 23:59 23:59 Intake Total 4007.83 / 4007.83 2272.87 / 2272.87 Output Total 1500 / 1500 Balance 2507.83 / 2507.83 2272.87 / 2272.87 Lab / Micro Data 02/26/25 04:53 02/26/25 04:53 Labs: Laboratory Results - last 24 hr 02/25/25 13:25: WBC 20.6 H, RBC 3.82 L, Hgb 11.8 L, Hct 34.0 L, MCV 89.0, MCH 30.9, MCHC 34.7, RDW Std Deviation 43.0, RDW Coeff of Nathaly 13.3, Plt Count 225, MPV 9.8, Immature Gran % (Auto) 1.200 H, Neut % (Auto) 82.1 H, Lymph % (Auto) 10.0 L, [place] % (Auto) 5.4, Eos % (Auto) 1.0, Baso % (Auto) 0.3, Absolute Neuts (auto) 16.9 H, Absolute Lymphs (auto) 2.07, Nucleated RBC % 0, PT 13.2, INR 1.0, APTT 29.7, Sodium 135, Potassium 4.0, Chloride 105, Carbon Dioxide 19.0 L, Anion Gap 11, BUN 8, Creatinine 0.57 L, Estim Creat Clear Calc 135.10, Est GFR (MDRD) Non-Af 126, BUN/Creatinine Ratio 15.0, Glucose 90, Lactic Acid 1.2, Calcium 8.2, Total Bilirubin 0.34, AST 18, ALT 9, Alkaline Phosphatase 103, Total Protein 6.3, Albumin 3.3 L, Globulin 3.0, Albumin/Globulin Ratio 1.1 02/25/25 17:27: WBC 19.8 H, RBC 3.45 L, Hgb 10.6 L, Hct 30.7 L, MCV 89.0, MCH 30.7, MCHC 34.5, RDW Std Deviation 42.9, RDW Coeff of Nathaly 13.2, Plt Count 206, MPV 9.6, Immature Gran % (Auto) 1.300 H, Neut % (Auto) 81.7 H, Lymph % (Auto) 10.2 L, [place] % (Auto) 5.4, Eos % (Auto) 1.1, Baso % (Auto) 0.3, Absolute Neuts (auto) 16.2 H, Absolute Lymphs (auto) 2.02, Nucleated RBC % 0, Sodium 134, Potassium 3.7, Chloride 104, Carbon Dioxide 19.3 L, Anion Gap 11, BUN 8, Creatinine 0.43 L, Estim Creat Clear Calc 179.09, Est GFR (MDRD) Non-Af 134, BUN/Creatinine Ratio 17.3, Glucose 110 H, Lactic Acid 1.5, Calcium 8.1, Total Bilirubin 0.41, AST 13, ALT 9, Alkaline Phosphatase 82, Total Protein 5.6 L, Albumin 3.0 L, Globulin 2.6, Albumin/Globulin Ratio 1.1 02/26/25 04:53: WBC 21.3 H, RBC 3.89 L, Hgb 12.0, Hct 34.4 L, MCV 88.4, MCH 30.8, MCHC 34.9, RDW Std Deviation 43.0, RDW Coeff of Nathaly 13.3, Plt Count 215, MPV 9.5, Immature Gran % (Auto) 1.200 H, Neut % (Auto) 84.5 H, Lymph % (Auto) 9.1 L, [place] % (Auto) 4.4, Eos % (Auto) 0.6, Baso % (Auto) 0.2, Absolute Neuts (auto) 18.0 H, Absolute Lymphs (auto) 1.93, Nucleated RBC % 0, Sodium 135, Potassium 4.0, Chloride 105, Carbon Dioxide 20.6 L, Anion Gap 10, BUN 6, Creatinine 0.47 L, Estim Creat Clear Calc 163.85, Est GFR (MDRD) Non-Af 131, BUN/Creatinine Ratio 12.6, Glucose 101 H, Lactic Acid 1.2, Calcium 8.4, Total Bilirubin 0.52, AST 15, ALT 8, Alkaline Phosphatase 92, Total Protein 6.1, Albumin 3.1 L, Globulin 3.0, Albumin/Globulin Ratio 1.0 Micro: Microbiology 02/25/25 03:00 Genital vaginal Group B Streptococcus (PCR) - Final Assessment & Plan (1) Chorioamnionitis: COMMENT: antibiotics, IOL recommended (2) Breech presentation: (3) premature rupture of membranes (PPROM) with unknown onset of labor: COMMENT: previable, discussed with MFM plan antibiotics for latency- ampicillin x 48 hours then amoxicillin x 5 days, given azithro 1 g orally. if stable after 48 hours plan dc home to manage expectantly as OP and fu with MFM monday. plan admission at viability 22/23 weeks with steroid administration at that time (4) Placental abruption in second trimester: COMMENT: s/p mfm consult and anatomy scan schedule wednesday 02/28 (5) Supervision of high-risk : COMMENT: PRR RADHA 07/22/25 boy chana Ugalde simeon, miriam [place] (6) : QUALIFIERS: Weeks of gestation: 17 weeks Qualified Code(s): Z3A.17 - 17 weeks gestation of COMMENT: ZE fam eladia due to persistent vb. genetic, carrier, afp declined. PLAN: Plan patient agreeable to cytotec now. continue cytotec IOL
--- NOTE | 2025-02-26 14:05 | OB.VAGDELI_ITS ---
Assessment & Plan (1) Chorioamnionitis: COMMENT: antibiotics, IOL recommended (2) Breech presentation: (3) premature rupture of membranes (PPROM) with unknown onset of labor: COMMENT: previable, discussed with MFM plan antibiotics for latency- ampicillin x 48 hours then amoxicillin x 5 days, given azithro 1 g orally. if stable after 48 hours plan dc home to manage expectantly as OP and fu with MFM monday. plan admission at viability 22/23 weeks with steroid administration at that time (4) Placental abruption in second trimester: COMMENT: s/p mfm consult and anatomy scan schedule wednesday 02/28 (5) Supervision of high-risk : COMMENT: PRR RADHA 07/22/25 boy chana Ugalde simeon, jaida [place] (6) : QUALIFIERS: Weeks of gestation: 17 weeks Qualified Code(s): Z3A.17 - 17 weeks gestation of COMMENT: ZE fam montilla due to persistent vb. genetic, carrier, afp declined. (7) Vaginal delivery: COMMENT: SM 19 week chorio pprom abruption boy Maternal Data Information RADHA Calculator Estimated Delivery Date Method Current WG Current Estimate 07/22/25 LMP (Certain) 19w 1d Vaginal Delivery Vaginal Delivery Information Procedure Performed: Spontaneous Vaginal Delivery Surgeon/Practitioner: Samantha Galeano Date of Procedure: 02/26/25 Pre-Procedure Diagnosis: pprom abruption chorioamnionitis Post-Procedure Diagnosis: same Special Medications: pitocin Estimated Blood Loss: 100 Findings Description of procedure: Patient received Pitocin and then Cytotec, ampicillin gentamicin and clindamycin. Patient progressed and delivered spontaneously the the cord was checked and so was the infant and no pulse or heartbeat was found. The cord was clamped and cut. The placenta delivered spontaneously and immediately following was noted to be intact with some of the membranes shredded around but no missing pieces of the placenta were seen. Patient declined any further evaluation of the uterus and declined curettage she wished for natural passing of any additional products. No fevers were seen . Discussed giving 1 additional dose of IV antibiotics which patient was amenable to. Bleeding was within normal limits 100 cc total. Pitocin given . Patient tolerated the procedure well. was found to be passed at the time of delivery Procedures Urinary/Genital [id number]: 17862 <20wk 10L by suppository
--- NOTE | 2025-02-26 14:37 | PLAC_PTH ---
PATIENT: PATITO LLANES LOC: [facility] U#:[id number] AGE/SX: 29/F ROOM: WP1 RE02/25/[address]: Dr. Samantha Galeano MD : 1995 BED: 1 DIS: 02/27/2025 SPEC #: [id number] RECD: 02/26/25 14:49 STATUS: SRINI RECarlos #: [id number] ESTEPHANIE: 02/26/25 14:[address]: Samantha Galeano DEPT: SURGICAL PATHOLOGY RECD BY: Jay Linton ENTERED: 02/27/25 07:51 SP TYPE: PLACENTA OT DR: No Primary Care Phys Tissues: A - Placenta, NOS Procedures: Surgery Specimen Level V HEADER OPERATION: Vaginal delivery PRE-OP DIAGNOSIS: Sepsis TISSUE SUBMITTED: A- Placenta MICROSCOPIC DIAGNOSIS A. Placenta, mid-trimester gestation 19 weeks / 1 day, vaginal delivery: * Acute chorioamnionitis. * 3-vessel umbilical cord, negative for acute inflammation. * 160.5 gram placental disc, approximately 95th percentile by dates MICROSCOPIC DESCRIPTION Slides are reviewed. GROSS DESCRIPTION A. Received in formalin labeled with the patient's name and date of is a 160.5 g, 12.4 x 11.5 x 2.2 cm slightly irregular, ovoid placental disc. The minimal membranes are bean, dull and translucent, inserting marginally. The attached, trivessel umbilical cord has a false knot and measures 20.0 cm in length by 0.7 cm in diameter, and inserts eccentrically 3.8 cm from the disc edge. The surface is predominantly bean-yellow to green and dull. The maternal surface is pale pink-light brown with a focally torn and frayed appearance and loosely adherent blood clot. The maternal surface appears grossly complete. Sectioning reveals pale pink and light brown to red, soft, spongy and somewhat friable parenchyma with focal hemorrhage and apparent fibrin deposition (<15%). Manager Performance Improvement sections are submitted as follows: A1: Membrane rollA2: Umbilical cordA3: PlacentaA4: Placenta SC 02/27/2025 CPT:06157
[2025-02-26] MEDS: Gentamicin IV 300 MG in Dextrose 5%-Water (50mL Bag) 50 ML 100 MG IVPB (14:55)
--- NOTE | 2025-02-26 18:39 | DCINST_ITS ---
Discharge Instructions DC O2, CPAP, BIPAP needs Home O2 Discharge instructions: No Dressing / Incision Discharge Activity: Return to Normal Activity, May Not Drive (while taking narcotic pain medications.) and May Shower May resume sexual activity in: 4-6 weeks Dressing / Incision Call your doctor if your incision/area has: Continuous Slow Oozing, Sudden Increased Bleeding, Increased Pain/ Swelling, Increased Redness and Foul Smelling Discharge Follow Up Care Please Follow Up With: Samantha Galeano MD When: Call [phone] to make an appointment with your doctor in 6 weeks. If you had elevated blood pressure or 4th degree laceration, you will need to be seen in 2 weeks. Test Results: Test results from this visit will be discussed in further detail at your follow- up appointment, if applicable. Discharge Plan Admission Admit Date/Time: 02/25/25 08:49 Attending Provider: Samantha Galeano Primary Care Provider: Care Physician,Jen Primary Discharge Orders/Prescriptions Prescriptions: No Action B Complex PO magnesium 200 mg tablet 200 mg PO DAILY Probiotic Acidophilus 250 million cell capsule 500 mmu cells PO DAILY cod liver oil Oil 10 ml PO DAILY Referrals / Follow Up: Care Physician,No Primary [Primary Care Provider, Medical]
[2025-02-27] VITALS: BP 92/51; PULSE 79; RESP 17; TEMP 36.2; O2SAT 99
[2025-02-27 00:06] VITALS: BP 92/51; PULSE 76
[2025-02-27 04:00] VITALS: BP 93/50; PULSE 77; RESP 17; TEMP 36.4; O2SAT 97
[2025-02-27 04:11] VITALS: PULSE 78; O2SAT 97
[2025-02-27 04:12] VITALS: BP 93/50; PULSE 69
--- NOTE | 2025-02-27 09:58 | CASEMGMT ---
Social Work Brief Assessment - Labor and Delivery Unit Patient Address: [address] [place] [address] [address] [id number] Phone number: [phone] Date and Time of Referral:?02/26/251947 Referred By: Dr. Galeano Date and time of intervention:? 02/26/251444 Reason for Referral:??grief, loss, bereavement Informant:?? Medical record, patient and support person/ spouse History:? Sw presented to bedside and introduced self to patientLina and her , Ravin. Sw expressed condolences for their loss and provided ongoing empathy and emotional support. Patient and Carter asked what the process is in order for them to take their baby home with them opposed to using a home. Sw explained that there is a process they have to go through and some paperwork for them to fill out, but they will be able to take their baby home with them for burial. Patient expressed appreciation for this, as they feel it is more spiritual for them, their baby and their children to have a place at their home for remembrance. Sw discussed processing their grief and educated patient and Ravin to the acronym DABDA and what the letters stand for. Patient states that she and her family are very restorationist and spiritual family and she feels that with the help of their beliefs they will be able to process this loss. Carter states that he has some images in his head that he will struggle with for quite some time. Carter states that he never anticipated to lose the baby, and is not sure how to move forward with this loss. Sw provided list of resources for patient and Carter to look into, and also offered to get them connected to counseling services or supports. Patient states that they have a large family, along with a large jain family that has already reached out to them and has been gracious with their words and their prayers. Assessment:? Patient currently admitted following a loss at 19 weeks gestation. Patient and her Ravin are observed to be solemn and reserved, understandably so. Parents did not cry, but did tear up from time to time. Carter states that at this point they have run out of tears to cry. Patient reports that she is eager to be home with her other four children who are being cared for by their family members. Patient is observed to be navigating her loss by using asking for a lot of strength and guidance from her restorationism. Sw observed Ravin to be open and talkative about where he is struggling regarding his mental health as well as his concerns for moving forward and navigating this loss. Parents were talkative and receptive to meeting with sw. Parents expressed appreciation for the support they received from nursing staff and medical team. No further needs requested or indicated. Noemi Mcfarlane, HAND SCUDDER, APPLIANCE COUNSELOR
[2025-02-27 10:08] LABS: Chlamydia By Nucleic Acid AMP Negative (Negative); Gonococcus By Nucleic Acid AMP Negative (Negative)
--- NOTE | 2025-03-03 14:28 | NURSING ---
F/up phone call performed-- pt. reports she is doing well physically, feeling almost 100%. Did have questions about what happened at delivery-- so after talking with pt. about physical and emotional health, forwarded call over to [facility]. Encouragement and support given.
== END 2025-02-27 06:05 | disposition home or self-care (01) | DRG 805 ==
LOC: WPOUT 09:46 → WP 09:46
PROVIDERS: Obstetrics & Gynecology; Admitting Provider Obstetrics & Gynecology; Referring Provider Obstetrics & Gynecology; Visit Provider Obstetrics & Gynecology
DX: O41.1220 Chorioamnionitis, second trimester, not applicable or unspecified (principal); Z37.1 Single stillbirth; O45.92 Premature separation of placenta, unspecified, second trimester; O42.912 Preterm premature rupture of membranes, unspecified as to length of time between rupture and onset of labor, second trimester; O32.1XX0 Maternal care for breech presentation, not applicable or unspecified; Z3A.19 19 weeks gestation of pregnancy
CPT/HCPCS: 36415; 59050; 76815; 76816; 80053; 81001; 83605; 85025; 85384; 85610; 85730; 86780; 86850; 86900; 86901; 87040; 87081; 87086; 87088; 87491; 87591; 87653; 88307; 99221; A4216; G0378